=== PATIENT | female | born 1950 | race African-American/Black ===

== ENCOUNTER 2017-08-26 18:34 | Inpatient (IN) | payer BC, MEDICARE ==
[~2017-08-26] VITALS: Ht 167.6 cm; Wt 48.7 kg
--- NOTE | 2017-08-26 18:50 | NUR ---
BBRA FROM SNF FOR LOW O2 SAT LEVEL; PER REPORT PT'S OT SAT IN THE SNF WAS AT LOW 90'S. PT PLACED ON CONT CARDIAC AND POX MONITORING, SATS AT 94%, RT AT BEDSIDE SUCTIONING THE PT'S TRACH-O2 SAT IMPROVED TO 100% AFTER SUCTIONING. AFEBRILE. VSS ALL NEEDS ARE ATTENDED, PENDING ER MD BOLANOS
[2017-08-26 18:51] VITALS: BP 123/75
--- NOTE | 2017-08-26 19:16 | NUR ---
report given to mora arce for cont of care.
[2017-08-26 19:22] LABS: BASOPHILS # (AUTO) 0.1 /CMM (0.0-0.2); BASOPHILS % (AUTO) 0.5 % (0.0-2.0); EOSINOPHILS # (AUTO) 0.1 /CMM (0.0-0.7); EOSINOPHILS % (AUTO) 0.5 % (0.0-6.0); HEMATOCRIT 35 % (33-45); HEMOGLOBIN 11.2 g/dL (11.5-14.8); LYMPHOCYTES # (AUTO) 0.9 /CMM (0.8-4.8); LYMPHOCYTES % (AUTO) 7.6 % (20.0-44.0); MEAN CORPUSCULAR HEMOGLOBIN 29 PG (26.0-33.0); MEAN CORPUSCULAR HGB CONC 33 g/dl (31.0-36.0); MEAN CORPUSCULAR VOLUME 90 fL (82-100); MONOCYTES # (AUTO) 0.2 /CMM (0.1-1.30); MONOCYTES % (AUTO) 2.1 % (2.0-12.0); NEUTROPHILS % (AUTO) 89.3 % (43.0-81.0); PLATELET COUNT (AUTO) 404 /CMM (150-450); RED BLOOD CELL COUNT(AUTO) 3.83 MIL/uL (4.0-5.2); WHITE BLOOD COUNT (AUTO) 11.3 K/uL (4.3-11.0)
[2017-08-26 19:30] LABS: INR 1.07 (0.87-1.13); PROTHROMBIN TIME 11.1 SECS (9.5-12.7)
[2017-08-26 19:35] LABS: ALANINE AMINOTRANSFERASE 15 U/L (12-78); ALBUMIN 3.5 g/dL (3.4-5.0); ALKALINE PHOSPHATASE 191 U/L (46-116); ASPARTATE AMINOTRANSFERASE 31 U/L (15-37); BILIRUBIN,DIRECT 0.2 mg/dL (0.0-0.2); BILIRUBIN,TOTAL 0.5 mg/dL (0.2-1.0); CALCIUM, SERUM 9.7 mg/dL (8.5-10.1); CARBON DIOXIDE 38 mmol/L (21-32); CHLORIDE 97 mmol/L (98-107); CREATININE 0.7 mg/dL (0.6-1.3); GLUCOSE 202 mg/dL (74-106); POTASSIUM 4.2 mmol/L (3.5-5.1); SODIUM SERUM 137 mmol/L (136-145); TOTAL PROTEIN, SERUM 8.1 g/dL (6.4-8.2); UREA NITROGEN, BLOOD 21 mg/dL (7-18)
--- NOTE | 2017-08-26 19:35 | NUR ---
xr at bedside.
[2017-08-26 19:41] LABS: TROPONIN I < 0.017 ng/mL (0.00-0.056)
[2017-08-26 20:01] VITALS: BP 86/49
[2017-08-26 20:04] LABS: APPEARANCE,URINE Cloudy (CLEAR); BILIRUBIN,URINE Negative (NEGATIVE); BLOOD, URINE Moderate Ery/uL (NEGATIVE); COLOR,URINE Yellow (YELLOW); KETONES,URINE Negative (NEGATIVE); LEUKOCYTE ESTERASE ,URINE Negative (NEGATIVE); NITRITE, URINE Negative (NEGATIVE); PROTEIN,URINE >=300 mg/dl (NEGATIVE); UGLUCOSE Negative (NEGATIVE)
--- NOTE | 2017-08-26 20:45 | NUR ---
STARTED PATIENT ON 1L NORMAL SALINE BOLUS PER DR CORONADO VERBAL ORDERS FOR LOW BP OF 79/48.
[2017-08-26] MEDS ORDERED: VANCOMYCIN 1 GM VIAL ONE (20:55)
[2017-08-26] MEDS ORDERED: PIPERACILLIN /TAZOBACTAM 3.375 G VIAL IV ONE (20:55)
[2017-08-26] MEDS ORDERED: VANCOMYCIN 1 GM in IV D5W 250 ML IV ONE (21:00)
[2017-08-26] MEDS ORDERED: PIPERACILLIN /TAZOBACTAM 3.375 G in IV D5W 50 ML IV ONE (21:00)
--- NOTE | 2017-08-26 21:17 | NUR ---
RAZ DUBOSE AT BEDSIDE.
--- NOTE | 2017-08-26 21:52 | NUR ---
ICU ROOM 256
[2017-08-26] MEDS ORDERED: HYDROCODONE/APAP 5/325MG 1 EACH TABLET PO PRN (22:00)
[2017-08-26] MEDS ORDERED: MAG HYDROX/AL HYDROX/SIMETH 30 ML UDC GT PRN (22:00)
[2017-08-26] MEDS ORDERED: Z GUARD REMEDY 2 OZ OINT TP PRN (22:00)
[2017-08-26] MEDS ORDERED: ONDANSETRON HCL/PF 4 MG/2 ML VIAL IVP PRN (22:00)
[2017-08-26] MEDS ORDERED: MAGNESIUM HYDROXIDE 30 ML UDC PO PRN (22:00)
[2017-08-26 22:03] LABS: BACTERIA,URINE Moderate /HPF (None Seen); SQUAMOUS EPITHELIAL CELL,UR Moderate /HPF (None Seen)
[2017-08-26] MEDS ORDERED: FERR-58 GT (22:24)
[2017-08-26] MEDS ORDERED: SIME40DR2 GT (22:24)
[2017-08-26] MEDS ORDERED: SUCR1TAB GT (22:24)
[2017-08-26] MEDS ORDERED: ONDA4TAB5 GT (22:24)
[2017-08-26] MEDS ORDERED: FOLI1TAB16 PO (22:24)
[2017-08-26] MEDS ORDERED: POLY17PO20 GT (22:24)
[2017-08-26] MEDS ORDERED: LORA1TAB PO (22:24)
[2017-08-26] MEDS ORDERED: BISA-79 GT (22:24)
[2017-08-26] MEDS ORDERED: LEVA1.2528 NEB (22:24)
[2017-08-26] MEDS ORDERED: DOCU50LI15 GT (22:24)
[2017-08-26] MEDS ORDERED: FURO40SO2 GT (22:24)
[2017-08-26] MEDS ORDERED: HYDR-548 PO (22:24)
[2017-08-26] MEDS ORDERED: ACET-2605 GT (22:24)
[2017-08-26] MEDS ORDERED: TIOT18CA3 IH (22:24)
[2017-08-26] MEDS ORDERED: PANT40TA2 GT (22:24)
[2017-08-26] MEDS ORDERED: ATOR20TA PO (22:24)
[2017-08-26] MEDS ORDERED: FAMO40TA7 GT (22:24)
--- NOTE | 2017-08-26 23:49 | NUR ---
report given to Nafisa GARRIDO for admission and prisca.
[2017-08-27] VITALS (7 sets, daily range): BP systolic 109–160; BP diastolic 49–87
--- NOTE | 2017-08-27 00:09 | NUR ---
Transferred patient to [facility] floor via als protocol, no incident noted.
--- NOTE | 2017-08-27 00:35 | NUR ---
RN NOTES 00:05 AM ADMITTED A 67 YEARS OLD FEMALE PATIENT FROM ER TRANSFER VIA STRETCHER AOX3 ADMITTED UNDER [place]GRETTE DNP DIAGNOSED WITH RESP . FAILURE WITH HX. OF A- FIB, RESP FAILURE, VENT DEPT., PNEUMONECTOMY, GIB,. ANEMIA. HIGH CHOLESTEROL AND COPD. ALLERGIC TO CODEINE, ALBUTEROL WARFARIN,. TRAMADOL. WITH TRACH PORTEX 8 CONNECTED TO VENT SETTING AC 16 TV 380 FIO2 40% PEEP 5 TOLERATED WELL SATING 99%. PT IS VERBALLY RESPONSIVE. WITH IV SITE ON RIGHT WRIST AND LEFT HAND G 20 INTACT AND PATENT NO INFILTRATION NO SWELLING WHEN FLUSHED. TELE MONITOR PLACED REVEALS SR - ST 110. NO ACUTE RESP DISTRESS. COMPLAINING OF PAIN ON HER TRACH SITE. NO BLEEDING FROM THE SITE. BUE AND BLE ABLE TO MOVE SKIN INTACT. INSTRUCTED TO USE CALL LIGHT WHEN NEED ASSISTANCE OR HELP. VS TAKEN TEMP 97.6 RESP 16 PULSE 110 BP 116/76. KEPT PT CLEAN AND DRY BED BATH DONE. WILL CONTINUE TO MONITOR.
[2017-08-27] MEDS ORDERED: HYDROCODONE/APAP 5/325MG 1 EACH TABLET ONE (00:37)
[2017-08-27] MEDS ORDERED: LEVALBUTEROL HCL NEB PRN (02:30)
[2017-08-27] MEDS ORDERED: PIPERACILLIN /TAZOBACTAM 3.375 G VIAL IV ONE (03:04)
[2017-08-27] MEDS: PIPERACILLIN /TAZOBACTAM 3.375 G in IV D5W 50 ML IV SCH ×3 (03:27→17:06)
[2017-08-27 06:29] LABS: BASOPHILS % (AUTO) 0.4 % (0.0-2.0); EOSINOPHILS # (AUTO) 0.1 /CMM (0.0-0.7); EOSINOPHILS % (AUTO) 0.8 % (0.0-6.0); HEMATOCRIT 35 % (33-45); HEMOGLOBIN 11.1 g/dL (11.5-14.8); LYMPHOCYTES # (AUTO) 1.7 /CMM (0.8-4.8); LYMPHOCYTES % (AUTO) 20.4 % (20.0-44.0); MEAN CORPUSCULAR HEMOGLOBIN 29 PG (26.0-33.0); MEAN CORPUSCULAR HGB CONC 32 g/dl (31.0-36.0); MEAN CORPUSCULAR VOLUME 92 fL (82-100); MONOCYTES # (AUTO) 0.4 /CMM (0.1-1.30); MONOCYTES % (AUTO) 5.1 % (2.0-12.0); NEUTROPHILS # (AUTO) 6.2 /CMM (1.8-8.9); NEUTROPHILS % (AUTO) 73.3 % (43.0-81.0); PLATELET COUNT (AUTO) 306 /CMM (150-450); RDW COEFFICIENT OF VARIATION 18.3 (11.5-15.0); RED BLOOD CELL COUNT(AUTO) 3.79 MIL/uL (4.0-5.2); WHITE BLOOD COUNT (AUTO) 8.4 K/uL (4.3-11.0)
[2017-08-27 06:49] LABS: CALCIUM, SERUM 9.5 mg/dL (8.5-10.1); CREATININE 0.6 mg/dL (0.6-1.3); MAGNESIUM 1.8 mg/dL (1.8-2.4); PHOSPHORUS 3.4 mg/dL (2.5-4.9); POTASSIUM 4.5 mmol/L (3.5-5.1)
[2017-08-27 06:53] LABS: THYROID STIMULATING HORMONE 0.429 uIU/mL (0.358-3.74)
--- NOTE | 2017-08-27 07:15 | NUR ---
RN INITIAL NOTES RECEIVED PT AWAKE, A/OX3. NO RESPIRATORY DISTRESS NOTED. NO SOB NOTED. HOB ELEVATED. TRACH IN PLACE. TOLERATING VENT WELL. NO SIGNS OF PAIN NOTED. ON TELE MONITOR, SINUS RHYTHM AT 75. IV LINES IN PLACE. BLE ELEVATED. PT COMFORTABLE. WILL MONITOR.
--- NOTE | 2017-08-27 07:18 | NUR ---
RN NOTES PT ASLEEP WELL ON BED NO ACUTE RESP DISTRESS. AFEBRILE. VS STABLE. ALL DUE MEDICINE TOLERATED WELL. NO ASE FROM ATB GIVEN. TRACH AND VENT SETTING TOLERATED WELL. KEPT PT CLEAN AND DRY ALL NEEDS ATTENDED. ENDORSED CONTINUITY OF CARE TO AM NURSE.
[2017-08-27] MEDS ORDERED: FEE PK DOSING 1 MIN EA MC ONE (08:17)
[2017-08-27] MEDS: PANTOPRAZOLE 40 MG/PACK PACK GT SCH (08:21)
[2017-08-27] MEDS: FUROSEMIDE 20 MG TABLET GT SCH (08:21)
[2017-08-27] MEDS: FOLIC ACID 1 MG TABLET GT SCH (08:21)
[2017-08-27] MEDS: SUCRALFATE 1 G TABLET GT SCH ×3 (08:22→16:07)
[2017-08-27] MEDS ORDERED: LEVALBUTEROL HCL NEB 1.25 MG/0.5 ML VIAL.NEB IH PRN (08:30)
[2017-08-27] MEDS ORDERED: ALBUTEROL FS 2.5 MG/3 ML VIAL.NEB NEB PRN (08:30)
[2017-08-27 08:34] LABS: ABG OXYGEN SATURATION 98.3 % (92.0-98.5); ABG PCO2 48.9 mmHg (35.0-45.0); ABG PH 7.449 (7.350-7.450); ABG PO2 134.4 mmHg (75.0-100.0); AaDO2 94.6 mmHg; COHb 0.3 % (0.5-1.5); MetHb 0.6 % (0.0-1.5); O2Hb 97.4 % (94.0-97.0); PEEP,BG 5 cm H2O; SITE, ABG Right Radial; VENT MODE, BG AC 16 380; VT, ABG 380 mL
[2017-08-27] MEDS: POLYETHYLENE GLYCOL 3350 17 GM POWD.PACK GT SCH ×2 (08:34→16:07)
[2017-08-27] MEDS: FERROUS SULFATE (325 MG) 325 MG/TAB TABLET GT SCH (08:35)
[2017-08-27] MEDS: SIMETHICONE 80 MG TAB.CHEW GT SCH (08:35)
[2017-08-27] MEDS ORDERED: TIOTROPIUM BROMIDE 6 CAP/BOX CAP.W.DEV IH SCH (09:00)
[2017-08-27] MEDS ORDERED: DOCUSATE SODIUM LIQ 100 MG/10 ML UDC GT SCH (09:00)
[2017-08-27] MEDS ORDERED: BISACODYL (5 MG) 5 MG TABLET.DR GT SCH (09:00)
--- NOTE | 2017-08-27 09:45 | NUR ---
RN NOTES SEEN AND EXAMINED BY DR. TENA. AWARE OF CURRENT LAB VALUES AND CXR RESULT. MD REVIEWED PT'S MEDICATIONS. ORDERED LABS IN AM.
--- NOTE | 2017-08-27 10:00 | NUR ---
RN NOTES SEEN AND EXAMINED BY DR. PAGE. AWARE OF CURRENT VENT SETTINGS AND ABG RESULT. ORDERED TO DECREASE AC RATE TO 12. NOTED AND CARRIED OUT. WILL MONITOR.
[2017-08-27] MEDS: VANCOMYCIN 0.75 GM in IV D5W 250 ML IV SCH ×2 (10:54→21:41)
[2017-08-27] MEDS: HYDROCODONE/APAP 5/325MG 1 EACH TABLET GT PRN ×3 (11:56→20:16)
[2017-08-27] MEDS: IPRATROPIUM NEB FS 0.5 MG/2.5 ML AMPUL.NEB NEB SCH ×2 (13:36→20:05)
--- NOTE | 2017-08-27 15:06 | NUR ---
spoke with Sriram [phone], patient resides st the [facility] at [address], [place] [phone]. Patient is trach/vent dependent, she is alert and responsive. Requires max to total assist with adl's. Has adequate DME at the [facility]. Current plan is to return to [facility]. Addendum: 08/27/17 at 1507 by JOHNNIE GASPAR RN Amended: Links added.
--- NOTE | 2017-08-27 18:32 | NUR ---
RN CLOSING NOTES PT STABLE. NO SIGNIFICANT CHANGE NOTED. PAIN WELL MANAGED. KEPT COMFORTABLE. IV LINES IN PLACE KEPT CLEAN AND DRY. ASSISTED IN REPOSITIONING. WILL ENDORSE FOR CONTINUITY OF CARE.
--- NOTE | 2017-08-27 19:30 | NUR ---
GERMAN RN INITIAL NOTE PT RECEIVED IN BED. A/O X3 AND ABLE TO MOUTH WORDS OR WRITE ON PAPER. ON MECH VENT WITH SETTINGS WELL TOLERATED AND SATURATING WELL. TELE-SR 78. IV R WRIST/ L HAND #20 CLEAN, DRY, PATENT AND FLUSHING WELL. HOB ELEVATED AND ON ASPIRATION PRECAUTIONS. GTUBE CLAMPED WITHOUT RESIDUALS NOTED. NPO EXCEPT MEDICATIONS AT THIS TIME. CALL LIGHT WITHIN REACH. WILL CONTINUE TO MONITOR.
[2017-08-27] MEDS: LORAZEPAM 1 MG TABLET GT PRN (20:16)
[2017-08-27] MEDS: ATORVASTATIN 10 MG TABLET GT SCH (21:40)
[2017-08-27] MEDS: ACETAMINOPHEN 325 MG TABLET PO PRN (22:18)
[2017-08-28] VITALS (55 sets, daily range): BP systolic 64–179; BP diastolic 1–99
[2017-08-28] MEDS: PIPERACILLIN /TAZOBACTAM 3.375 G in IV D5W 50 ML IV SCH ×4 (00:20→17:53)
[2017-08-28] MEDS: HYDROCODONE/APAP 5/325MG 1 EACH TABLET GT PRN ×3 (00:21→08:42)
[2017-08-28] MEDS: IPRATROPIUM NEB FS 0.5 MG/2.5 ML AMPUL.NEB NEB SCH ×4 (02:12→19:42)
[2017-08-28] MEDS: LORAZEPAM 1 MG TABLET GT PRN ×2 (04:48→20:19)
[2017-08-28 06:48] LABS: BASOPHILS % (AUTO) 0.6 % (0.0-2.0); EOSINOPHILS # (AUTO) 0.1 /CMM (0.0-0.7); EOSINOPHILS % (AUTO) 1.4 % (0.0-6.0); HEMATOCRIT 36 % (33-45); HEMOGLOBIN 11.4 g/dL (11.5-14.8); LYMPHOCYTES # (AUTO) 1.6 /CMM (0.8-4.8); LYMPHOCYTES % (AUTO) 19.8 % (20.0-44.0); MEAN CORPUSCULAR HEMOGLOBIN 29 PG (26.0-33.0); MEAN CORPUSCULAR HGB CONC 32 g/dl (31.0-36.0); MEAN CORPUSCULAR VOLUME 91 fL (82-100); MONOCYTES # (AUTO) 0.4 /CMM (0.1-1.30); MONOCYTES % (AUTO) 4.3 % (2.0-12.0); NEUTROPHILS % (AUTO) 73.9 % (43.0-81.0); PLATELET COUNT (AUTO) 297 /CMM (150-450); RED BLOOD CELL COUNT(AUTO) 3.97 MIL/uL (4.0-5.2); WHITE BLOOD COUNT (AUTO) 8.2 K/uL (4.3-11.0)
--- NOTE | 2017-08-28 07:20 | NUR ---
GERMAN RN CLOSING NOTE NO ACUTE DISTRESS NOTED. VENT SETTINGS WELL TOLERATED. HOB ELEVATED. ON ASPIRATION PRECAUTIONS. NOTED WITH 100 ML RESIDUALS AT MIDNIGHT. 530 AM NOTED WITHOUT RESIDUALS AND FLUSHING WELL. ALL NEEDS ATTENDED TO PROMPTLY. CALL LIGHT WITHIN REACH. WILL ENDORSE TO NEXT SHIFT FOR CONTINUITY OF CARE.
[2017-08-28 07:30] LABS: CALCIUM, SERUM 9.7 mg/dL (8.5-10.1); CREATININE 0.8 mg/dL (0.6-1.3); MAGNESIUM 1.9 mg/dL (1.8-2.4); PHOSPHORUS 4.2 mg/dL (2.5-4.9); POTASSIUM 3.9 mmol/L (3.5-5.1)
--- NOTE | 2017-08-28 07:30 | NUR ---
RN NOTES IN BED, RESTING COMFORTABLY, ALERT, ABLE TO MAKE NEEDS KNOWN BY WRITING. RT AT BEDSIDE DID TRACHE SUCTIONING. PT HAS R WRIST HL AND LH HL. PEG CLAMPED. TURNED TO R SIDE. DIAPERED. NO C/O PAIN. BED LOW AND LOCKED. CALL LIGHT WITHIN REACHED. WILL CONTINUE TO MONITOR.
[2017-08-28] MEDS: POLYETHYLENE GLYCOL 3350 17 GM POWD.PACK GT SCH ×3 (08:42→17:00)
[2017-08-28] MEDS: FERROUS SULFATE (325 MG) 325 MG/TAB TABLET GT SCH (08:43)
[2017-08-28] MEDS: BISACODYL (5 MG) 5 MG TABLET.DR GT SCH (08:43)
[2017-08-28] MEDS: FOLIC ACID 1 MG TABLET GT SCH (08:43)
[2017-08-28] MEDS: FUROSEMIDE 20 MG TABLET GT SCH (08:43)
[2017-08-28] MEDS: DOCUSATE SODIUM LIQ 100 MG/10 ML UDC GT SCH (08:43)
[2017-08-28] MEDS: PANTOPRAZOLE 40 MG/PACK PACK GT SCH (08:43)
[2017-08-28] MEDS: SUCRALFATE 1 G TABLET GT SCH ×3 (08:44→17:51)
[2017-08-28] MEDS: SIMETHICONE 80 MG TAB.CHEW GT SCH (08:44)
[2017-08-28] MEDS ORDERED: LORAZEPAM INJ 2 MG/ML VIAL IV STA (09:35)
--- NOTE | 2017-08-28 09:35 | NUR ---
GERMAN/RN - Notes Pt noted with elevated HR up to 160's on air sampling and monitoring. Stat EKG done showing atrial flutter with HR 151. BP 179/81. Pt noted to be anxious and diaphoretic. Dr Daly called and notified regarding change of condition. Received orders for stat CXR, doppler BLE, ABG troponin x3, and Ativan 1mg IVP one time. Will carry out orders.
--- NOTE | 2017-08-28 09:55 | NUR ---
GERMAN/RN - Notes Dr Denise Raman called, regarding pt's condition. Pt HR at 155, BP 193/135, complaining of chest pain. Ativan 1mg IVP given. Received orders to obtain Cardio consult (Dr Howard), start Metoprolol 25mg BID via GT, and Morphine 2mg IVP Q4h. Verified with patient regarding codeine allergy, pt states "I have received Morphine before and not experience any reaction." Will carry out MD orders.
[2017-08-28] MEDS: VANCOMYCIN 0.75 GM in IV D5W 250 ML IV SCH ×2 (10:02→21:50)
[2017-08-28] MEDS: METOPROLOL TARTRATE 25 MG TABLET PO SCH ×2 (10:04→20:19)
[2017-08-28] MEDS: MORPHINE SULFATE INJ 2 MG/ML DISP.SYRIN IV PRN ×3 (10:05→21:05)
[2017-08-28 10:17] LABS: ABG BASE EXCESS 5.9 mmol/L; ABG OXYGEN SATURATION 91.4 % (92.0-98.5); ABG PCO2 74.8 mmHg (35.0-45.0); ABG PH 7.287 (7.350-7.450); ABG PO2 72.8 mmHg (75.0-100.0); AaDO2 53.2 mmHg; COHb 0.7 % (0.5-1.5); MetHb 0.5 % (0.0-1.5); O2Hb 90.3 % (94.0-97.0); PEEP,BG 5 cm H2O; SITE, ABG Right Radial; VT, ABG 380 mL
--- NOTE | 2017-08-28 10:25 | NUR ---
GERMAN/RN - Notes Pt seen By Dr Howard at this time, with new orders received to start Amiodarone gtt.
[2017-08-28] MEDS ORDERED: AMIODARONE 150 MG in IV D5W 100 ML IV ONE (10:30)
[2017-08-28] MEDS ORDERED: AMIODARONE 900 MG in IV D5W 500 ML IV PRN (10:30)
--- NOTE | 2017-08-28 10:30 | NUR ---
GERMAN/RN - Notes ABG results to Dr Daly by Angelina helm RN. RT Healy received orders for ventilator changes, and ABG in 2 hours.
--- NOTE | 2017-08-28 10:35 | NUR ---
GERMAN/RN - Notes Dr Walker at bedside for evaluation. Pt still noted with hypotension with BP 75/45. Per MD, discontinue 1L NS bolus d/t crackles. Hold Amiodarone gtt for now, as pt is hypotensive. Transfer to ICU to start Levophed and Amiodarone gtt. Charge nurse made aware.
[2017-08-28] MEDS: RIVAROXABAN 10 MG TABLET PO SCH (11:20)
--- NOTE | 2017-08-28 11:25 | NUR ---
ICU/RN - Notes Dr Walker notified pt is hypotensive with BP 64/43. Received orders to give 1L NS bolus. Addendum: 08/28/17 at 1151 by QIAN LONGORIA RN Intervention took place at 1023
[2017-08-28] MEDS ORDERED: IV NS 0.9% 1,000 ML IV ONE (11:30)
--- NOTE | 2017-08-28 11:45 | NUR ---
GERMAN/RN - Transfer Pt transferred to ICU via ACLS protocol. Pt to be started on Levophed for hypotension. Report given to RADHIKA Stack for continuity of care. Will notify family regarding transfer.
--- NOTE | 2017-08-28 11:47 | NUR ---
MUSEUM EXHIBIT TECHNICIAN RECEIVED PATIENT FROM THE GERMAN. PATIENT IS ALERT AND ORIENTED X 4. VENT/TRACH. NO ACUTE DISTRESS. NOW SINUS RHYTHM. BP MONITORED. AFEBRILE. VENT SETTINGS REVIEWED AND VERIFIED. TUBE FEEDING ON HOLD DUE TO ASPIRATION RISK. WILL CONTINUE TO MONITOR AND PROVIDE CARE.
[2017-08-28 12:48] LABS: ABG BASE EXCESS 9.5 mmol/L; ABG OXYGEN SATURATION 97.9 % (92.0-98.5); ABG PCO2 41.6 mmHg (35.0-45.0); ABG PO2 116.1 mmHg (75.0-100.0); AaDO2 48.9 mmHg; COHb 0.3 % (0.5-1.5); MetHb 0.4 % (0.0-1.5); O2Hb 97.2 % (94.0-97.0); PEEP,BG 5 cm H2O; SITE, ABG Right Radial; VENT MODE, BG AC 20 450 30% +5; VT, ABG 450 mL
[2017-08-28] MEDS: LACTOBACILLUS RHAMNOSUS GG 1 EACH CAP.SPRINK PO SCH (17:51)
[2017-08-28] MEDS: ATORVASTATIN 10 MG TABLET GT SCH (21:57)
[2017-08-29] VITALS (46 sets, daily range): BP systolic 99–192; BP diastolic 39–92
[2017-08-29] MEDS: PIPERACILLIN /TAZOBACTAM 3.375 G in IV D5W 50 ML IV SCH ×4 (00:27→17:11)
[2017-08-29] MEDS: IPRATROPIUM NEB FS 0.5 MG/2.5 ML AMPUL.NEB NEB SCH ×4 (02:23→20:27)
[2017-08-29 04:49] LABS: BASOPHILS % (AUTO) 0.2 % (0.0-2.0); EOSINOPHILS # (AUTO) 0.1 /CMM (0.0-0.7); EOSINOPHILS % (AUTO) 1.2 % (0.0-6.0); HEMATOCRIT 40 % (33-45); HEMOGLOBIN 12.7 g/dL (11.5-14.8); LYMPHOCYTES # (AUTO) 2.2 /CMM (0.8-4.8); LYMPHOCYTES % (AUTO) 23.9 % (20.0-44.0); MEAN CORPUSCULAR HEMOGLOBIN 29 PG (26.0-33.0); MEAN CORPUSCULAR HGB CONC 32 g/dl (31.0-36.0); MEAN CORPUSCULAR VOLUME 90 fL (82-100); MONOCYTES # (AUTO) 0.4 /CMM (0.1-1.30); MONOCYTES % (AUTO) 4.2 % (2.0-12.0); NEUTROPHILS # (AUTO) 6.6 /CMM (1.8-8.9); NEUTROPHILS % (AUTO) 70.5 % (43.0-81.0); PLATELET COUNT (AUTO) 348 /CMM (150-450); RDW COEFFICIENT OF VARIATION 18.1 (11.5-15.0); RED BLOOD CELL COUNT(AUTO) 4.45 MIL/uL (4.0-5.2); WHITE BLOOD COUNT (AUTO) 9.3 K/uL (4.3-11.0)
[2017-08-29 05:04] LABS: CALCIUM, SERUM 10.1 mg/dL (8.5-10.1); CARBON DIOXIDE 34 mmol/L (21-32); CHLORIDE 98 mmol/L (98-107); GLUCOSE 68 mg/dL (74-106); MAGNESIUM 1.7 mg/dL (1.8-2.4); PHOSPHORUS 3.5 mg/dL (2.5-4.9); POTASSIUM 3.3 mmol/L (3.5-5.1); SODIUM SERUM 139 mmol/L (136-145); UREA NITROGEN, BLOOD 14 mg/dL (7-18)
[2017-08-29 05:14] LABS: TROPONIN I < 0.017 ng/mL (0.00-0.056)
[2017-08-29] MEDS: MORPHINE SULFATE INJ 2 MG/ML DISP.SYRIN IV PRN ×3 (06:07→17:01)
--- NOTE | 2017-08-29 07:20 | NUR ---
COMPUTER SYSTEMS AUDITOR RECEIVED PATIENT FROM THE PREVIOUS SHIFT. PATIENT IS IN BED. RESTING COMFORTABLY. NO ACUTE DISTRESS NOTED. ALERT AND AWAKE. VENT SETTINGS REVIEWED AND VERIFIED. SINUS RHYTHM ON MONITOR. TURNED AND REPOSITIONED FOR COMFORT AND WOUND PREVENTION. WILL CONTINUE TO MONITOR AND PROVIDE CARE.
[2017-08-29] MEDS: POLYETHYLENE GLYCOL 3350 17 GM POWD.PACK GT SCH ×2 (09:00→16:59)
[2017-08-29] MEDS: BISACODYL (5 MG) 5 MG TABLET.DR GT SCH (09:00)
[2017-08-29] MEDS: DOCUSATE SODIUM LIQ 100 MG/10 ML UDC GT SCH (09:00)
[2017-08-29] MEDS ORDERED: POTASSIUM CHLORIDE 20 MEQ POWDER PACKET GT ONE (10:00)
[2017-08-29] MEDS: Magnesium 1GM/D5W 100ML PREMIX 100 ML IV SCH ×2 (10:23→11:36)
[2017-08-29] MEDS: FUROSEMIDE 20 MG TABLET GT SCH (10:35)
[2017-08-29] MEDS: LACTOBACILLUS RHAMNOSUS GG 1 EACH CAP.SPRINK PO SCH ×2 (10:35→17:01)
[2017-08-29] MEDS: FOLIC ACID 1 MG TABLET GT SCH (10:35)
[2017-08-29] MEDS: PANTOPRAZOLE 40 MG/PACK PACK GT SCH (10:35)
[2017-08-29] MEDS: SIMETHICONE 80 MG TAB.CHEW GT SCH (10:35)
[2017-08-29] MEDS: METOPROLOL TARTRATE 25 MG TABLET PO SCH ×3 (10:36→21:57)
[2017-08-29] MEDS: FERROUS SULFATE (325 MG) 325 MG/TAB TABLET GT SCH (10:37)
[2017-08-29] MEDS: SUCRALFATE 1 G TABLET GT SCH ×3 (10:37→17:01)
[2017-08-29] MEDS ORDERED: POTASSIUM CHLORIDE 20 MEQ POWDER PACKET NG SCH (11:30)
[2017-08-29] MEDS ORDERED: POTASSIUM CL. PREMIX PERIPHER. 50 ML IV SCH (12:00)
[2017-08-29] MEDS ORDERED: Magnesium 1GM/D5W 100ML PREMIX 100 ML IV SCH (12:00)
[2017-08-29] MEDS: VANCOMYCIN 500 MG in IV D5W 100 ML IV SCH (12:12)
[2017-08-29] MEDS: LEVOFLOXACIN 750 MG /D5W 150ML 750 MG in PREMIX 1 EA IV SCH (13:32)
[2017-08-29] MEDS: LORAZEPAM 1 MG TABLET GT PRN ×2 (14:50→21:39)
[2017-08-29] MEDS: RIVAROXABAN 10 MG TABLET PO SCH (16:41)
[2017-08-29] MEDS: NUTREN PULMONARY 1,000 ML BAG GT PRN (17:02)
--- NOTE | 2017-08-29 17:51 | NUR ---
CYLINDER DIE MACHINE OPERATOR TRANSFERRED THE PATIENT TO [facility] LEVEL OF CARE ON STABLE CONDITIONS.
--- NOTE | 2017-08-29 18:10 | NUR ---
TUBE WRAPPER NOTE RECEIVED PATENT ROM ICI ALERT , ORIENTED X2 \3, FAMILY AT BEDSIDE , VS TAKEN , WITH TRACH TO VENT SETTING ORDERED , AMBU ABG AT [facility] AT ALL TIME , TRACH CARE DONE ,SUCTION DONE VS TAKEN, BED IN LOWEST AND LOCKED POSITION, WILL CONT TO MONITOR CLOSELY
--- NOTE | 2017-08-29 19:30 | NUR ---
AIR INTELLIGENCE SPECIALIST INITIAL NOTES RECEIVED PATIENT AWAKE, A/OX3, ABLE TO MAKE NEEDS KNOWN. VENT DEPENDENT, MOUTHS WORDS. DENIES PAIN OR DISCOMFORT AT THIS TIME. AT BEDSIDE. RESPIRATIONS EVEN AND UNLABORED, WITH VENT SETTINGS AC 20, TV 400, FIO2 30%, PEEP 5, SPO2 100%. SKIN WARM AND DRY TO TOUCH. ON TELE MONITOR SINUS TACH. WITH GTF AT 30ML/HR, GT PATENT AND INTACT, MINIMAL RESIDUAL NOTED. WITH GOAL RATE 45ML/HR. HOB KEPT ELEVATED. SIDE RAILS UP AND LOCKED. BED KEPT AT LOWEST POSITION. CALL LIGHT KEPT WITHIN EASY REACH. WILL CONTINUE TO MONITOR.
[2017-08-29] MEDS: ATORVASTATIN 10 MG TABLET GT SCH (21:39)
[2017-08-30] VITALS: BP 101/75
[2017-08-30] MEDS: VANCOMYCIN 500 MG in IV D5W 100 ML IV SCH ×3 (00:25→12:02)
[2017-08-30] MEDS: PIPERACILLIN /TAZOBACTAM 3.375 G in IV D5W 50 ML IV SCH ×4 (00:25→17:00)
[2017-08-30] MEDS: IPRATROPIUM NEB FS 0.5 MG/2.5 ML AMPUL.NEB NEB SCH ×4 (01:57→19:21)
[2017-08-30 04:00] VITALS: BP 102/59
--- NOTE | 2017-08-30 07:10 | NUR ---
RN INITIAL NOTES: REC'D PT AWAKE ON BED, A/O X3, ABLE TO MAKE NEEDS KNOWN, NOT IN ANY DISTRESS, DENIES ANY PAIN/DISCOMFORT. ON MECH VENT VIA TRACH, SATURATING AT 100%. ON TELEMONITOR, SR. HAS PEG PATENT & INTACT, ON CONT TUBE FEEDING OF NUTREN X 45 CC/HR INFUSING WELL, NO RESIDUAL NOTED UPON CHECKING. HAS LFA G22, SL, FLUSHED, PATENT & INTACT W/ NO S/SX OF INFECTION/INFILTRATION NOTED. PROVIDED COMFORT & SAFETY MEASURES. BED KEPT LOW & IN LOCKED POS. CALL LIGHT PLACED W/IN REACH. WILL CONTINUE TO MONITOR AND ATTEND PT NEEDS.
[2017-08-30 07:28] LABS: BASOPHILS % (AUTO) 0.5 % (0.0-2.0); EOSINOPHILS # (AUTO) 0.1 /CMM (0.0-0.7); HEMATOCRIT 35 % (33-45); HEMOGLOBIN 11.2 g/dL (11.5-14.8); LYMPHOCYTES # (AUTO) 1.4 /CMM (0.8-4.8); LYMPHOCYTES % (AUTO) 16.9 % (20.0-44.0); MEAN CORPUSCULAR HEMOGLOBIN 29 PG (26.0-33.0); MEAN CORPUSCULAR HGB CONC 32 g/dl (31.0-36.0); MEAN CORPUSCULAR VOLUME 90 fL (82-100); MONOCYTES # (AUTO) 0.6 /CMM (0.1-1.30); MONOCYTES % (AUTO) 6.9 % (2.0-12.0); NEUTROPHILS # (AUTO) 6.4 /CMM (1.8-8.9); NEUTROPHILS % (AUTO) 74.7 % (43.0-81.0); PLATELET COUNT (AUTO) 308 /CMM (150-450); WHITE BLOOD COUNT (AUTO) 8.5 K/uL (4.3-11.0)
[2017-08-30 07:32] LABS: CALCIUM, SERUM 9.5 mg/dL (8.5-10.1); CREATININE 1.1 mg/dL (0.6-1.3); MAGNESIUM 1.9 mg/dL (1.8-2.4); PHOSPHORUS 3.9 mg/dL (2.5-4.9); POTASSIUM 3.4 mmol/L (3.5-5.1)
[2017-08-30 08:00] VITALS: BP 95/55
[2017-08-30] MEDS: FOLIC ACID 1 MG TABLET GT SCH (08:22)
[2017-08-30] MEDS: PANTOPRAZOLE 40 MG/PACK PACK GT SCH (08:22)
[2017-08-30] MEDS: FUROSEMIDE 20 MG TABLET GT SCH (08:22)
[2017-08-30] MEDS: SUCRALFATE 1 G TABLET GT SCH ×3 (08:22→16:58)
[2017-08-30] MEDS: DOCUSATE SODIUM LIQ 100 MG/10 ML UDC GT SCH (08:22)
[2017-08-30] MEDS: LACTOBACILLUS RHAMNOSUS GG 1 EACH CAP.SPRINK PO SCH ×2 (08:23→16:58)
[2017-08-30] MEDS: SIMETHICONE 80 MG TAB.CHEW GT SCH (08:23)
[2017-08-30] MEDS: POLYETHYLENE GLYCOL 3350 17 GM POWD.PACK GT SCH ×2 (08:23→16:43)
[2017-08-30] MEDS: BISACODYL (5 MG) 5 MG TABLET.DR GT SCH (08:23)
[2017-08-30] MEDS: FERROUS SULFATE (325 MG) 325 MG/TAB TABLET GT SCH (08:23)
[2017-08-30] MEDS: METOPROLOL TARTRATE 25 MG TABLET PO SCH ×2 (08:24→21:56)
[2017-08-30] MEDS ORDERED: POTASSIUM CHLORIDE 20 MEQ POWDER PACKET GT ONE ×2 (10:00→12:00)
[2017-08-30] MEDS ORDERED: POTASSIUM CHLORIDE 20 MEQ TAB.PRT.SR PO ONE (11:00)
[2017-08-30 12:00] VITALS: BP 100/62
[2017-08-30] MEDS: LORAZEPAM 1 MG TABLET GT PRN (12:56)
[2017-08-30] MEDS: LEVOFLOXACIN 750 MG /D5W 150ML 750 MG in PREMIX 1 EA IV SCH (13:09)
[2017-08-30] MEDS: MORPHINE SULFATE INJ 2 MG/ML DISP.SYRIN IV PRN (15:04)
[2017-08-30 16:00] VITALS: BP 92/60
[2017-08-30] MEDS: RIVAROXABAN 10 MG TABLET PO SCH (16:58)
[2017-08-30] MEDS: NUTREN PULMONARY 1,000 ML BAG GT PRN (18:02)
--- NOTE | 2017-08-30 18:21 | NUR ---
RN CLOSING NOTES: NO ACUTE CHANGES NOTED W/IN SHIFT. PT TOLERATED MECH VENT SETTINGS VIA TRACH, SATURATING AT 100%. ON TELEMONITOR, NOW ST. PEG KEPT PATENT & INTACT, ON CONT TUBE FEEDING OF NUTREN X 45 CC/HR TOLERATED WELL, NO RESIDUAL NOTED W/IN SHIFT. LFA G22, SL, KEPT PATENT & INTACT W/ NO S/SX OF INFECTION/INFILTRATION NOTED. KEPT WELL RESTED. NEEDS ATTENDED. BED KEPT LOW & IN LOCKED POS. CALL LIGHT PLACED W/IN REACH. WILL ENDORSE TO PM RN FOR FLOYD.
--- NOTE | 2017-08-30 19:30 | NUR ---
PREMIUM NOTE INTEREST CALCULATOR CLERK INITIAL NOTES RECEIVED PATIENT AWAKE A/OX3 ABLE TO MAKE NEEDS KNOWN. VENT DEPENDENT WITH VENT SETTINGS AC 20, TV 400, FIO2 30%, PEEP 5, SPO2 100%. ON TELE MONITOR ATRIAL TACH 110. WITH C/O 5/10 PAIN. SKIN WARM AND DRY TO TOUCH . WITH GT PATENT AND INTACT. NO RESIDUAL NOTED. HOB KEPT ELEVATED. SIDE RAILS UP AND LOCKED. BED KEPT AT LOWEST POSITION. CALL LIGHT KEPT WITHIN EASY REACH. WILL CONTINUE TO MONITOR.
[2017-08-30 20:00] VITALS: BP 93/59
[2017-08-30] MEDS: ACETAMINOPHEN 325 MG TABLET PO PRN (20:19)
[2017-08-30] MEDS: ATORVASTATIN 10 MG TABLET GT SCH (21:56)
[2017-08-31] VITALS: BP 98/64
[2017-08-31] MEDS: VANCOMYCIN 500 MG in IV D5W 100 ML IV SCH ×2
--- NOTE | 2017-08-31 00:37 | NUR ---
vancomycin non-admin trough 22.
[2017-08-31] MEDS: PIPERACILLIN /TAZOBACTAM 3.375 G in IV D5W 50 ML IV SCH ×3 (00:44→12:08)
[2017-08-31] MEDS: IPRATROPIUM NEB FS 0.5 MG/2.5 ML AMPUL.NEB NEB SCH ×4 (01:52→20:23)
[2017-08-31 04:00] VITALS: BP_SYST 108; BP_SYST 95; BP_DIAS 62; BP_DIAS 64
[2017-08-31] MEDS: ACETAMINOPHEN 325 MG TABLET PO PRN (06:11)
--- NOTE | 2017-08-31 07:21 | NUR ---
ROD BUSTER CLOSING NOTES NO SIGNIFICANT CHANGES OVERNIGHT. NO RESPIRATORY DISTRESS NOTED. PAIN MONITORED AND MANAGED NEEDED. TOLERATING CURRENT VENT SETTINGS. TOLERATING GTF, NO RESIDUAL NOTED. KEPT CLEAN AND DRY. TURNED AND REPOSITIONED Q2 AND PRN. SIDE RAILS UP AND LOCKED. BED KEPT AT LOWEST POSITION. CALL LIGHT KEPT WITHIN EASY REACH. WILL ENDORSE CONTINUITY OF CARE TO AM NURSE.
[2017-08-31 08:00] VITALS: BP 87/61
[2017-08-31 08:01] LABS: BASOPHILS % (AUTO) 0.3 % (0.0-2.0); EOSINOPHILS # (AUTO) 0.1 /CMM (0.0-0.7); HEMATOCRIT 36 % (33-45); HEMOGLOBIN 11.2 g/dL (11.5-14.8); LYMPHOCYTES # (AUTO) 2.1 /CMM (0.8-4.8); LYMPHOCYTES % (AUTO) 22.5 % (20.0-44.0); MEAN CORPUSCULAR HEMOGLOBIN 29 PG (26.0-33.0); MEAN CORPUSCULAR HGB CONC 31 g/dl (31.0-36.0); MEAN CORPUSCULAR VOLUME 91 fL (82-100); MONOCYTES # (AUTO) 0.7 /CMM (0.1-1.30); MONOCYTES % (AUTO) 7.4 % (2.0-12.0); NEUTROPHILS # (AUTO) 6.3 /CMM (1.8-8.9); NEUTROPHILS % (AUTO) 68.8 % (43.0-81.0); PLATELET COUNT (AUTO) 304 /CMM (150-450); RDW COEFFICIENT OF VARIATION 17.7 (11.5-15.0); RED BLOOD CELL COUNT(AUTO) 3.94 MIL/uL (4.0-5.2); WHITE BLOOD COUNT (AUTO) 9.2 K/uL (4.3-11.0)
[2017-08-31 08:17] LABS: CALCIUM, SERUM 9.1 mg/dL (8.5-10.1); CREATININE 1.1 mg/dL (0.6-1.3); POTASSIUM 3.7 mmol/L (3.5-5.1)
[2017-08-31] MEDS: LACTOBACILLUS RHAMNOSUS GG 1 EACH CAP.SPRINK PO SCH ×2 (08:55→16:34)
[2017-08-31] MEDS: POLYETHYLENE GLYCOL 3350 17 GM POWD.PACK GT SCH ×2 (08:55→16:34)
[2017-08-31] MEDS: DOCUSATE SODIUM LIQ 100 MG/10 ML UDC GT SCH (08:55)
[2017-08-31] MEDS: SIMETHICONE 80 MG TAB.CHEW GT SCH (08:55)
[2017-08-31] MEDS: PANTOPRAZOLE 40 MG/PACK PACK GT SCH (08:55)
[2017-08-31] MEDS: FOLIC ACID 1 MG TABLET GT SCH (08:55)
[2017-08-31] MEDS: FERROUS SULFATE (325 MG) 325 MG/TAB TABLET GT SCH (08:55)
[2017-08-31] MEDS: BISACODYL (5 MG) 5 MG TABLET.DR GT SCH (08:56)
[2017-08-31] MEDS: FUROSEMIDE 20 MG TABLET GT SCH (08:56)
[2017-08-31] MEDS: SUCRALFATE 1 G TABLET GT SCH ×3 (08:56→16:34)
[2017-08-31] MEDS: METOPROLOL TARTRATE 25 MG TABLET PO SCH (09:00)
[2017-08-31 09:45] LABS: MAGNESIUM 1.7 mg/dL (1.8-2.4); PHOSPHORUS 3.2 mg/dL (2.5-4.9)
[2017-08-31] MEDS ORDERED: METO25TA20 PO (10:00)
[2017-08-31] MEDS ORDERED: [UNRECOGNIZED DRUG - CODE] GT (10:00)
[2017-08-31] MEDS ORDERED: LEVO750T21 PO (10:00)
[2017-08-31] MEDS ORDERED: RIVA10TA PO (10:00)
[2017-08-31] MEDS: Magnesium 1GM/D5W 100ML PREMIX 100 ML IV SCH ×2 (11:57→12:52)
[2017-08-31 12:00] VITALS: BP 97/56
[2017-08-31] MEDS: LEVOFLOXACIN 750 MG /D5W 150ML 750 MG in PREMIX 1 EA IV SCH (12:52)
[2017-08-31 16:00] VITALS: BP 108/65
[2017-08-31] MEDS: HYDROCODONE/APAP 5/325MG 1 EACH TABLET GT PRN (16:35)
[2017-08-31] MEDS: RIVAROXABAN 10 MG TABLET PO SCH (16:48)
--- NOTE | 2017-08-31 18:09 | NUR ---
RN NOTES CALLED [facility], REPORT GIVEN TO KARLIE GARRIDO. ESTIMATED ESCROW AGENT TIME IS 1929
--- NOTE | 2017-08-31 18:10 | NUR ---
RN NOTES PATIENT RESTING IN BED, NO ACUTE CHANGE IN CONDITION. NO RESPIRATORY DISTRESS NOTED. TOLERATING CURRENT MECH VENT SETTINGS. PAIN MONITORED AND MANAGED NEEDED. HYDROCODONE PRN GIVEN WITH RELIEF. TOLERATING GTF, NO RESIDUAL NOTED. KEPT CLEAN AND DRY. TURNED AND REPOSITIONED Q2H AND PRN. SIDE RAILS UP AND LOCKED, HOB KEPT ELEVATED, BED KEPT AT LOWEST POSITION. CALL LIGHT KEPT WITHIN EASY REACH. FAMILY AT BEDSIDE
[2017-08-31] MEDS: LORAZEPAM 1 MG TABLET GT PRN (19:29)
[2017-08-31 20:00] VITALS: BP 105/63
--- NOTE | 2017-08-31 21:45 | NUR ---
RN CLOSING NOTE PT REMAINS IN NO ACUTE DISTRESS IN BED. PT DID NOT HAVE ANY SIGNIFICANT CHANGE IN CONDITION DURING SHIFT. PT TOLERATED VENT SETTING WELL. EMS AND RT AT BEDSIDE. PT TOLERATED TRANSFER TO [facility]. IV AND TELE REMOVED. PT LEFT HOSPITAL IN STABLE CONDITION WITH EMS TO [facility].
== END 2017-08-31 22:45 | DRG 870 ==
LOC: ER 18:39 → ICU 22:02 → TELE-TD 23:53 → ICU 08-28 11:40 → TELE1 08-29 17:35
PROVIDERS: ADMIT Nurse Practitioner Acute Care; ATTEND Nurse Practitioner Acute Care
PROC: 5A1955Z Respiratory Ventilation, Greater than 96 Consecutive Hours (ICD-10-PCS; principal; 2017-08-26)
DX: A41.9 Sepsis, unspecified organism (principal); N17.0 Acute kidney failure with tubular necrosis; J96.21 Acute and chronic respiratory failure with hypoxia; J18.9 Pneumonia, unspecified organism; Z99.11 Dependence on respirator [ventilator] status; I50.33 Acute on chronic diastolic (congestive) heart failure; J44.1 Chronic obstructive pulmonary disease with (acute) exacerbation; Z93.0 Tracheostomy status; D68.59 Other primary thrombophilia; J96.22 Acute and chronic respiratory failure with hypercapnia; I48.92 Unspecified atrial flutter; N39.0 Urinary tract infection, site not specified; I48.91 Unspecified atrial fibrillation; Z93.1 Gastrostomy status; D64.9 Anemia, unspecified; E87.6 Hypokalemia; I25.10 Atherosclerotic heart disease of native coronary artery without angina pectoris; Z90.2 Acquired absence of lung [part of]; D63.8 Anemia in other chronic diseases classified elsewhere; B96.89 Other specified bacterial agents as the cause of diseases classified elsewhere; M94.0 Chondrocostal junction syndrome [Tietze]; R13.10 Dysphagia, unspecified; B96.5 Pseudomonas (aeruginosa) (mallei) (pseudomallei) as the cause of diseases classified elsewhere
CPT/HCPCS: 31720; 36415; 36600; 71010-TC; 71250-TC; 80048-TC; 80061-TC; 80076-TC; 80202-TC; 81000-TC; 82803-TC; 83605-TC; 83735-TC; 84100-TC; 84443-TC; 84484-TC; 85025-TC; 85730-TC; 87040-TC; 87070-TC; 87081-TC; 87086-TC; 87186-TC; 93307-TC; 93970-TC; 94002-TC; 94003-TC; 94762-TC; 99082-TC; A4216; A4606; A6253; A6402; J0282; J1956; J2060; J2270; J2405; J2543; J3370; J3475; J7030; J7060; Z7610

== ENCOUNTER 2017-10-02 00:09 | Inpatient (IN) | payer OTHER, MEDICAID ==
[~2017-10-02] VITALS: Ht 154.9 cm; Wt 51.7 kg
[2017-10-02] VITALS (7 sets, daily range): BP systolic 99–117; BP diastolic 59–69
[~2017-10-02 00:09] MED LIST: ACET-2605 GT; ATOR20TA GT; BISA-79 GT; DOCU50LI15 GT; FAMO40TA7 GT; FERR325T23 GT; FOLI1TAB16 GT; FURO40SO2 GT; LEVA1.2528 NEB; LEVO750T21 PO; LORA1TAB GT; METO25TA20 PO; ONDA4TAB5 GT; PANT40TA2 GT; POLY17PO20 GT; RIVA10TA PO; SIME40DR2 GT; TIOT18CA3 IH; [UNRECOGNIZED DRUG - CODE] GT
--- NOTE | 2017-10-02 00:21 | NUR ---
to bed 2 bib paramedics c/o sob, rhonchi heard bilaterally on auscultation. pt aaox4 no acute distress noted, resp even and unlabored. place pt no cardiac monitoring, continuous pox. rt at bedside to place pt on vent.
--- NOTE | 2017-10-02 00:26 | NUR ---
RT PLACE PT ON VENT AC-14, TV-400, FIO2-28%, PEEP-5. WILL CONTINUE TO MONITOR PT CLOSELY.
[2017-10-02 00:53] LABS: BASOPHILS % (AUTO) 0.3 % (0.0-2.0); EOSINOPHILS # (AUTO) 0.1 /CMM (0.0-0.7); EOSINOPHILS % (AUTO) 0.5 % (0.0-6.0); HEMATOCRIT 39 % (33-45); HEMOGLOBIN 12.4 g/dL (11.5-14.8); LYMPHOCYTES # (AUTO) 2.5 /CMM (0.8-4.8); LYMPHOCYTES % (AUTO) 23.7 % (20.0-44.0); MEAN CORPUSCULAR HEMOGLOBIN 28 PG (26.0-33.0); MEAN CORPUSCULAR HGB CONC 32 g/dl (31.0-36.0); MEAN CORPUSCULAR VOLUME 88 fL (82-100); MONOCYTES # (AUTO) 0.4 /CMM (0.1-1.30); MONOCYTES % (AUTO) 3.3 % (2.0-12.0); NEUTROPHILS # (AUTO) 7.7 /CMM (1.8-8.9); NEUTROPHILS % (AUTO) 72.2 % (43.0-81.0); PLATELET COUNT (AUTO) 298 /CMM (150-450); RDW COEFFICIENT OF VARIATION 16.3 (11.5-15.0); RED BLOOD CELL COUNT(AUTO) 4.44 MIL/uL (4.0-5.2); WHITE BLOOD COUNT (AUTO) 10.7 K/uL (4.3-11.0)
[2017-10-02] MEDS ORDERED: IV NS 0.9% 1,000 ML BAG IV ONE (01:00)
[2017-10-02 01:04] LABS: CALCIUM, SERUM 9.8 mg/dL (8.5-10.1); CARBON DIOXIDE 33 mmol/L (21-32); CHLORIDE 97 mmol/L (98-107); CREATININE 0.9 mg/dL (0.6-1.3); GLUCOSE 169 mg/dL (74-106); POTASSIUM 5.1 mmol/L (3.5-5.1); SODIUM SERUM 131 mmol/L (136-145); UREA NITROGEN, BLOOD 29 mg/dL (7-18)
[2017-10-02 01:08] LABS: INR 1.1 (0.87-1.13)
[2017-10-02 01:12] LABS: TROPONIN I < 0.017 ng/mL (0.00-0.056)
[2017-10-02 01:19] LABS: ALANINE AMINOTRANSFERASE 46 U/L (12-78); ALBUMIN 3.2 g/dL (3.4-5.0); ALKALINE PHOSPHATASE 254 U/L (46-116); ASPARTATE AMINOTRANSFERASE 59 U/L (15-37); B-TYPE NATRIURETIC PEPTIDE 4370 PG/ML (0-125); BILIRUBIN,DIRECT 0.1 mg/dL (0.0-0.2); BILIRUBIN,TOTAL 0.6 mg/dL (0.2-1.0); TOTAL PROTEIN, SERUM 8.6 g/dL (6.4-8.2)
[2017-10-02 01:39] LABS: APPEARANCE,URINE SL CLOUDY (CLEAR); BILIRUBIN,URINE NEGATIVE (NEGATIVE); BLOOD, URINE NEGATIVE Ery/uL (NEGATIVE); COLOR,URINE YELLOW (YELLOW); KETONES,URINE NEGATIVE (NEGATIVE); LEUKOCYTE ESTERASE ,URINE NEGATIVE (NEGATIVE); NITRITE, URINE NEGATIVE (NEGATIVE); PROTEIN,URINE 2+ mg/dl (NEGATIVE); UGLUCOSE NEGATIVE (NEGATIVE); UROBILINOGEN,URINE 0.2 EU/dL (0.2)
[2017-10-02 01:43] LABS: BACTERIA,URINE Few /HPF (None Seen); HYALINE CASTS, URINE Few /LPF (None Seen); RBC,URINE 0-2 /HPF (0-2); SQUAMOUS EPITHELIAL CELL,UR Few /HPF (None Seen); URINE AMORPHOUS URATE Moderate /HPF (None Seen); WBC,URINE 0-2 /HPF (0-3)
--- NOTE | 2017-10-02 01:48 | NUR ---
CALLED [facility] FOR A PANEL CALL
--- NOTE | 2017-10-02 02:20 | NUR ---
ER TALKING TO DR. KWON REGARDING PT ADMISSION. WILL CALL FOR REPORT.
--- NOTE | 2017-10-02 02:29 | NUR ---
REPORT CALLED TO WORKING SUPERVISORRADHIKA PEREZ. WILL TRANSPORT PT VIA ACLS PROTOCOL.
[2017-10-02] MEDS ORDERED: MAG HYDROX/AL HYDROX/SIMETH 30 ML UDC PO PRN (03:00)
[2017-10-02] MEDS ORDERED: ENOXAPARIN SODIUM 30 MG/0.3 ML DISP.SYRIN SQ SCH (03:00)
[2017-10-02] MEDS ORDERED: ONDANSETRON HCL/PF 4 MG/2 ML VIAL IVP PRN (03:00)
[2017-10-02] MEDS ORDERED: MAGNESIUM HYDROXIDE 30 ML UDC PO PRN (03:00)
--- NOTE | 2017-10-02 03:00 | NUR ---
GERMAN RN INITIAL NOTE A/O X4 AND ABLE TO MOUTH WORDS OR WRITE DOWN NEEDS. VENT DEPENDENT AND TOLERATING WELL. NO SOB NOTED. NO C/O PAIN OR DISCOMFORT. HOB ELEVATED. ON ASPIRATION PRECAUTIONS. IV LFA #18 CLEAN AND DRY. ALL ORDERS CARRIED OUT. CALL LIGHT WITHIN REACH. WILL CONTINUE TO MONITOR.
[2017-10-02] MEDS ORDERED: LEVOFLOXACIN 500 MG /D5W 100ML 100 ML IV ONE (03:08)
[2017-10-02] MEDS ORDERED: ENOXAPARIN SODIUM 30 MG/0.3 ML DISP.SYRIN ONE (03:09)
[2017-10-02] MEDS: IPRATROPIUM NEB FS 0.5 MG/2.5 ML AMPUL.NEB NEB SCH ×6 (03:37→23:44)
[2017-10-02] MEDS: IV NS 0.9% 1,000 ML IV PRN ×2 (03:43→16:21)
[2017-10-02] MEDS: LEVOFLOXACIN 500 MG /D5W 100ML 500 MG in PREMIX 1 EA IV SCH (03:43)
--- NOTE | 2017-10-02 05:36 | NUR ---
Received pt on vent support, pt stable on current settings, no SOB or respiratory distress noted.Ventilator is plugged into red outlet, alarms are audible, ambu bag at bedside. Will continue monitoring per MDS orders. Addendum: 10/02/17 at 0536 by GIANA COMBS RT Amended: Links added.
--- NOTE | 2017-10-02 07:10 | NUR ---
RN INITIAL NOTES: REC'D PT AWAKE ON BED, NOT IN ANY DISTRESS, A/O X 3, ABLE TO MAKE NEEDS KNOWN. ON MV VIA TRACH, SATING AT 100%. ON TELEMONITOR, SR/ST. HAS PEG PATENT & INTACT, CLAMPED AT THIS TIME, FEEDING TO START. HAS LFA G18 W/ NS X 75 CC/HR INFUSING WELL. PROVIDED COMFORT & SAFETY MEASURES. BED KEPT LOW & IN LOCKED POS. CALL LIGHT PLACED W/IN REACH. WILL CONTINUE TO MONITOR AND ATTEND PT NEEDS.
--- NOTE | 2017-10-02 08:11 | NUR ---
GERMAN RN CLOSING NOTE PT REMAINED STABLE DURING SHIFT. NO C/O PAIN. NO S/SX OF RESPIRATORY DISTRESS NOTED. HOB ELEVATED. IV FLUIDS STARTED AND MEDS GIVEN. KEPT CLEAN AND DRY. SUCTIONED NEEDED. CALL LIGHT WITHIN REACH. WILL ENDORSE TO NEXT SHIFT FOR CONTINUITY OF CARE.
[2017-10-02] MEDS ORDERED: TIOTROPIUM BROMIDE 6 CAP/BOX CAP.W.DEV IH SCH (09:00)
[2017-10-02] MEDS ORDERED: FUROSEMIDE 20 MG TABLET GT SCH (09:00)
[2017-10-02] MEDS: METOPROLOL TARTRATE 25 MG TABLET PO SCH ×2 (09:00→21:00)
[2017-10-02] MEDS: PANTOPRAZOLE 40 MG/PACK PACK GT SCH (09:12)
[2017-10-02] MEDS: DOCUSATE SODIUM LIQ 100 MG/10 ML UDC GT SCH (09:12)
[2017-10-02] MEDS: FOLIC ACID 1 MG TABLET PO SCH (09:12)
[2017-10-02] MEDS: BISACODYL (5 MG) 5 MG TABLET.DR GT SCH (09:12)
[2017-10-02] MEDS: FERROUS SULFATE (325 MG) 325 MG/TAB TABLET GT SCH (09:12)
[2017-10-02] MEDS: SIMETHICONE SUSP 40 MG/0.6 ML BOTTLE GT SCH (09:13)
[2017-10-02] MEDS: Z GUARD REMEDY 2 OZ OINT TP PRN (09:14)
[2017-10-02] MEDS: NUTREN PULMONARY 1,000 ML BAG GT PRN (09:41)
[2017-10-02] MEDS: LORAZEPAM 1 MG TABLET PO PRN (10:04)
[2017-10-02] MEDS ORDERED: LEVALBUTEROL HCL NEB 1.25 MG/0.5 ML VIAL.NEB IH PRN (10:11)
[2017-10-02] MEDS: methylPREDNISolone SOD SUCC 125 MG/2ML VIAL IV SCH ×3 (12:12→23:25)
[2017-10-02] MEDS: ACETAMINOPHEN 325 MG TABLET PO PRN (16:17)
[2017-10-02] MEDS: RIVAROXABAN 10 MG TABLET PO SCH (16:17)
--- NOTE | 2017-10-02 19:00 | NUR ---
RN CLOSING NOTES: NO ACUTE CHANGES NOTED W/ SHIFT. PT TOLERATED MV VIA TRACH. ON TELEMONITOR, STILL SR/ST. PEG KEPT PATENT & INTACT, STARTED ON NUTREN X 45 CC/HR TOLERATED WELL, NO RESIDUAL NOTED W/IN SHIFT. LFA G18 NO S/SX OF INFECTION/ INFILTRATION NOTED W/ NS X 75 CC/HR. KEPT WELL RESTED. NEEDS ATTENDED. BED KEPT LOW & IN LOCKED POS. CALL LIGHT PLACED W/IN REACH. ENDORSED TO PM RN FOR FLOYD.
--- NOTE | 2017-10-02 19:20 | NUR ---
GERMAN RN OPENING NOTES RECEIVED REPORT FROM KENNY GARRIDO. PATIENT A/A/O X3, ABLE TO MOUTH WORDS & MAKE NEEDS KNOWN. BREATHING EVEN & UNLABORED W/ TRACH INTACT & TOLERATING VENT SETTINGS AC 16, TV 400, FIO2 28%, PEEP 5. NO RESPIRATORY DISTRESS NOTED. ON TELE SINUS TACH, HR 102. DENIES NAY CHEST PAIN OR DISCOMFORT. LEFT FOREARM IV #18 INTACT W/ DRESSING CDI & IVF NS @ 75 ML/HR. G-TUBE INTACT & FLUSHING WELL. GTF NUTREN @ 45 ML/HR, NO RESIDUAL NOTED @ THIS TIME. PATIENT RESTING COMFORTABLY IN BED. SAFETY MEASURES IN PLACE W/ SIDE RAILS UP, BED LOCKED & IN LOWEST POSITION & CALL LIGHT WITHIN REACH. FAMILY @ BEDSIDE. WILL CONTINUE TO MONITOR. Addendum: 10/02/17 at 1953 by JOHANA LIGHT RN RECEIVED REPORT FROM JANEL Odonnell
[2017-10-02] MEDS: ATORVASTATIN 10 MG TABLET PO SCH (21:56)
[2017-10-03] VITALS (7 sets, daily range): BP systolic 120–132; BP diastolic 66–99
[2017-10-03] MEDS: LEVOFLOXACIN 500 MG /D5W 100ML 500 MG in PREMIX 1 EA IV SCH (02:44)
[2017-10-03] MEDS: LORAZEPAM 1 MG TABLET PO PRN ×2 (02:44→15:33)
--- NOTE | 2017-10-03 03:00 | NUR ---
GERMAN RN NOTES PATIENT NOTED W/ INCREASED HR 200S AND TELE READING V-TACH W/ C/O NON-RADIATING CHEST PAIN. BP 146/92. CALLED & SPOKE TO DR KWON & NEW ORDERS RECEIVED.
--- NOTE | 2017-10-03 03:05 | NUR ---
GERMAN RN NOTES PATIENT ASKED TO CALL REGARDING MORPHINE. CALLED PATIENT'S TO CONFIRM IF OKAY TO GIVE MORPHINE TO PATIENT D/T ALLERGY TO CODEINE. PER PATIENT'S , M[place]Y, [place] TO GIVE MORPHINE.
[2017-10-03] MEDS ORDERED: NITROGLYCERIN 0.4 MG/TAB BOTTLE ONE (03:15)
[2017-10-03] MEDS: NITROGLYCERIN 0.4 MG/TAB BOTTLE SL PRN ×3 (03:21→03:35)
--- NOTE | 2017-10-03 03:21 | NUR ---
GERMAN RN NOTES 1ST DOSE O.4 MG NITRO ADMINISTERED SUBLINGUALLY. BP 149/92.
[2017-10-03] MEDS ORDERED: MORPHINE SULFATE INJ 4 MG/ML DISP.SYRIN ONE (03:24)
--- NOTE | 2017-10-03 03:27 | NUR ---
GERMAN RN NOTES PATIENT STILL C/O CHEST PAIN W/ HR 200S. 2ND DOSE NITRO ADMINISTERED SUBLINGUALLY. BP 132/99
[2017-10-03] MEDS ORDERED: MORPHINE SULFATE INJ 2 MG/ML DISP.SYRIN IV PRN (03:30)
--- NOTE | 2017-10-03 03:35 | NUR ---
GERMAN RN NOTES PATIENT STILL C/O NON-RADIATING CHEST PAIN W/ HR IN 200S. BP 122/80. MORPHINE 2MG IV ALSO ADMINISTERED. WILL CONTINUE TO MONITOR.
[2017-10-03 03:41] LABS: BASOPHILS % (AUTO) 0.1 % (0.0-2.0); HEMATOCRIT 39 % (33-45); HEMOGLOBIN 12.5 g/dL (11.5-14.8); LYMPHOCYTES # (AUTO) 2.4 /CMM (0.8-4.8); LYMPHOCYTES % (AUTO) 21.8 % (20.0-44.0); MEAN CORPUSCULAR HEMOGLOBIN 28 PG (26.0-33.0); MEAN CORPUSCULAR HGB CONC 32 g/dl (31.0-36.0); MEAN CORPUSCULAR VOLUME 88 fL (82-100); MONOCYTES # (AUTO) 0.1 /CMM (0.1-1.30); MONOCYTES % (AUTO) 0.6 % (2.0-12.0); NEUTROPHILS # (AUTO) 8.4 /CMM (1.8-8.9); NEUTROPHILS % (AUTO) 77.5 % (43.0-81.0); PLATELET COUNT (AUTO) 342 /CMM (150-450); RDW COEFFICIENT OF VARIATION 16.3 (11.5-15.0); RED BLOOD CELL COUNT(AUTO) 4.46 MIL/uL (4.0-5.2); WHITE BLOOD COUNT (AUTO) 10.9 K/uL (4.3-11.0)
[2017-10-03] MEDS: IPRATROPIUM NEB FS 0.5 MG/2.5 ML AMPUL.NEB NEB SCH ×6 (03:44→23:15)
[2017-10-03] MEDS ORDERED: ASPIRIN 81 MG TAB.CHEW ONE (03:44)
[2017-10-03 03:55] LABS: CALCIUM, SERUM 9.3 mg/dL (8.5-10.1); MAGNESIUM 1.9 mg/dL (1.8-2.4); PHOSPHORUS 4.1 mg/dL (2.5-4.9); POTASSIUM 4.8 mmol/L (3.5-5.1)
--- NOTE | 2017-10-03 03:55 | NUR ---
GERMAN RN NOTES ASPIRIN 81 MG ADMINISTERED VIA G-TUBE. PATIENT CONTINUES TO C/O NON-RADIATING CHEST PAIN W/ HR STILL IN 200S. SPOKE TO DR KWON & NEW ORDER FOR ADENOSINE PUSH RECEIVED.
[2017-10-03] MEDS ORDERED: ASPIRIN 81 MG TAB.CHEW PO SCH (04:00)
[2017-10-03] MEDS ORDERED: ADENOSINE 6 MG/2 ML VIAL IVP ONE (04:00)
--- NOTE | 2017-10-03 04:00 | NUR ---
GERMAN RN NOTES RE-ASSESSED PATIENT BEFORE ADMINISTERING ADENOSINE. PER PATIENT, CHEST PAIN DECREASED. HR ALSO DECREASED TO 140S. ADENOSINE NON-ADMINISTERED. CHARGE NURSE AWARE. WILL MONITOR PATIENT CLOSELY.
[2017-10-03] MEDS ORDERED: LORAZEPAM INJ 2 MG/ML VIAL IV PRN (04:30)
--- NOTE | 2017-10-03 04:30 | NUR ---
GERMAN RN NOTES PATIENT NO LONGER IN DISTRESS & DENIES ANY MORE CHEST PAIN. HR 104 & BP 102/66. TROPONIN 0.017. WILL CONTINUE TO MONITOR PATIENT CLOSELY.
[2017-10-03] MEDS: methylPREDNISolone SOD SUCC 125 MG/2ML VIAL IV SCH ×4 (05:53→23:31)
[2017-10-03] MEDS: NUTREN PULMONARY 1,000 ML BAG GT PRN (06:47)
[2017-10-03] MEDS: ACETAMINOPHEN 325 MG TABLET PO PRN ×2 (06:53→11:43)
--- NOTE | 2017-10-03 07:52 | NUR ---
GERMAN RN NOTE PATIENT IN BED ,RESTING COMFORTABLY WITH TRACH TO VENT SETTING ORDERED , ON TELE MONITOR SR 77 WITH PAC , WITH G TUBE FEEDING ORDERED ,KEEP HOB ELEVATED AT ALL YVETTE. LT FA HL INTACT , ON IVF ORDERED, BED IN LOWEST AND LOCKED POSITION , CALL LIGHT WITHIN REACH, WILL CONT TO MONITOR CLOSELY ,CHEST XRAY DONE ORDERED
[2017-10-03] MEDS: ASPIRIN 81 MG TAB.CHEW PO SCH (08:52)
[2017-10-03] MEDS: FOLIC ACID 1 MG TABLET PO SCH (08:52)
[2017-10-03] MEDS: DOCUSATE SODIUM LIQ 100 MG/10 ML UDC GT SCH (08:52)
[2017-10-03] MEDS: FERROUS SULFATE (325 MG) 325 MG/TAB TABLET GT SCH (08:52)
[2017-10-03] MEDS: PANTOPRAZOLE 40 MG/PACK PACK GT SCH (08:52)
[2017-10-03] MEDS: BISACODYL (5 MG) 5 MG TABLET.DR GT SCH (08:52)
[2017-10-03] MEDS: METOPROLOL TARTRATE 25 MG TABLET PO SCH ×2 (08:53→23:32)
[2017-10-03] MEDS: MORPHINE SULFATE INJ 4 MG/ML DISP.SYRIN IV PRN ×2 (08:53→14:06)
[2017-10-03] MEDS: SIMETHICONE SUSP 40 MG/0.6 ML BOTTLE GT SCH (08:59)
--- NOTE | 2017-10-03 09:00 | NUR ---
[facility] rn note c\o general pain in body, morphine 2 mg ivp , abg done, rt at bedside as ordered, will cont to monitor closely, bp 122/77 ,sat 100%
[2017-10-03] MEDS: IV NS 0.9% 1,000 ML IV PRN (09:04)
[2017-10-03 09:36] LABS: ABG BASE EXCESS 0.4 mmol/L; ABG OXYGEN SATURATION 97.4 % (92.0-98.5); ABG PCO2 42.9 mmHg (35.0-45.0); ABG PH 7.392 (7.350-7.450); ABG PO2 111.4 mmHg (75.0-100.0); AaDO2 37.6 mmHg; COHb 0.3 % (0.5-1.5); MetHb 0.5 % (0.0-1.5); O2Hb 96.6 % (94.0-97.0); PEEP,BG 5 cm H2O; SITE, ABG Right Radial; VENT MODE, BG AC 16 400 28% +5; VT, ABG 400 mL
--- NOTE | 2017-10-03 11:51 | NUR ---
GERMAN RN NOTE SEEN BY RT ,BREATHING TX DONE ,TYLENOL FOR GENERAL PAIN GIVEN, WILL CONT TO MONITOR CLOSELY. PER DR DOYLE QUAN IVF
--- NOTE | 2017-10-03 14:34 | NUR ---
GERMAN GARRIDO NOTE C\O PAIN IN BODY, MORPHINE 2 MG IVP GIVEN ,SIN299% BP 122/78 Addendum: 10/03/17 at 1539 by BLAKE COMER RN C\O ANXIETY , ATIVAN VIA G TUBE GIVEN ORDERED ,WILL CONT TO MONITOR CLOSELY AT BEDSIDE
[2017-10-03] MEDS: RIVAROXABAN 10 MG TABLET PO SCH (16:53)
--- NOTE | 2017-10-03 18:01 | NUR ---
GERMAN RN NOTE AT BEDSIDE , WILL NEEDS ATTENDED, KEEP CLEAN DRY. ALL NEEDS ATTENDED ,WILL CONT TO MONITOR CLOSELY
--- NOTE | 2017-10-03 18:17 | NUR ---
RT NOTE PT REMAINS IN STABLE CONDITION. PT REMAINS ON VENT ON SETTINGS PRESCRIBED. ALARMS SET PER PROTOCOL AND AUDIBLE. VENT PLUGGED IN TO RED OUTLET. PT AWAKE AND ALERT. AMBU BAG AT BED SIDE. NO DISTRESS NOTED.
--- NOTE | 2017-10-03 19:10 | NUR ---
GERMAN RN NOTE FAMILY AT BEDSIDE NOT IN ACUTE DISTRESS ,WILL CONT TO MONITOR CLOSELY
--- NOTE | 2017-10-03 19:19 | NUR ---
RCVD PT ON VENT WITH NOTED SETTINGS. PT IS ALERT AND AWAKE. VENT ALARM WORKING AND AUDIBLE, VENT PLUGGED INTO RED OUTLET, AMBU BAG AT BEDSIDE. SXN SMALL AMOUNT OF YELLOW THICK SECRETIONS. TX GIVEN PER MD'S ORDERED, NO ADVERSE REACTION NOTED. NO RESPIRATORY DISTRESS NOTED AT THIS TIME . WILL CONTINUE TO MONITOR THE PT.
--- NOTE | 2017-10-03 19:35 | NUR ---
GERMAN RN INITIAL NOTE PT RECEIVED ASLEEP BUT EASILY AROUSABLE TO NAME AND LIGHT TOUCH. A/O X3 AND ABLE TO MOUTH WORDS OR WRITE NEEDS ON PAPER. ON MECH VENT WITH SETTINGS WELL TOLERATED AND SATURATING WELL. TELE- A-FLUTTER 70. IV LFA #18 CLEAN, DRY AND PATENT. GTUBE FEEDING WELL TOLERATED AND NO RESIDUALS NOTED. HOB ELEVATED AND ON ASPIRATION PRECAUTIONS. NO C/O PAIN OR DISCOMFORT NOTED. CALL LIGHT WITHIN REACH. WILL CONTINUE TO MONITOR.
[2017-10-03] MEDS: ATORVASTATIN 10 MG TABLET PO SCH (23:32)
[2017-10-03] MEDS: LEVOFLOXACIN (500MG) 500 MG TABLET PO SCH (23:33)
[2017-10-04] VITALS (7 sets, daily range): BP systolic 136–168; BP diastolic 65–79
[2017-10-04] MEDS: IPRATROPIUM NEB FS 0.5 MG/2.5 ML AMPUL.NEB NEB SCH ×6 (03:17→23:50)
[2017-10-04] MEDS: NUTREN PULMONARY 1,000 ML BAG GT PRN (04:56)
[2017-10-04] MEDS: methylPREDNISolone SOD SUCC 125 MG/2ML VIAL IV SCH ×3 (06:15→18:27)
--- NOTE | 2017-10-04 07:31 | NUR ---
GERMAN RN CLOSING NOTE PT REMAINED STABLE DURING SHIFT. NO ACUTE DISTRESS NOTED. ALL NEEDS ATTENDED TO PROMPTLY. VENT SETTINGS WELL TOLERATED. KEPT CLEAN AND DRY. HOB ELEVATION AND ON ASPIRATION PRECAUTIONS. CALL LIGHT WITHIN REACH. WILL ENDORSE TO NEXT SHIFT FOR CONTINUITY OF CARE.
--- NOTE | 2017-10-04 08:00 | NUR ---
RN NOTE(INITIAL) PATIENT RECEIVED ALERT AWAKE ORIENTED, ABLE TO MAKE NEEDS KNOWN, ABLE TO MOUTH WORDS & WRITE TO COMMUNICATE. ON VENT -TRAC, SETTINGS TOLERATING WELL. IV CATHETER INTACT, SALINE LOCK. G-TUBE RUNNING ORDERED. NO RESIDUAL NOTED. ASPIRATION PRECAUTIONS OBSERVED. ON TELE MONITOR A-FLUTTER.. SAFETY MEASURES OBSERVED. CALL LIGHT WITHIN REACH. WILL CONTINUE TO MONITOR.
[2017-10-04] MEDS: ASPIRIN 81 MG TAB.CHEW PO SCH (09:03)
[2017-10-04] MEDS: METOPROLOL TARTRATE 25 MG TABLET PO SCH ×2 (09:03→21:44)
[2017-10-04] MEDS: PANTOPRAZOLE 40 MG/PACK PACK GT SCH (09:03)
[2017-10-04] MEDS: SIMETHICONE SUSP 40 MG/0.6 ML BOTTLE GT SCH (09:04)
[2017-10-04] MEDS: FOLIC ACID 1 MG TABLET PO SCH (09:04)
[2017-10-04] MEDS: FERROUS SULFATE (325 MG) 325 MG/TAB TABLET GT SCH (09:04)
[2017-10-04] MEDS: BISACODYL (5 MG) 5 MG TABLET.DR GT SCH (09:04)
[2017-10-04] MEDS: DOCUSATE SODIUM LIQ 100 MG/10 ML UDC GT SCH (09:04)
[2017-10-04] MEDS: LORAZEPAM 1 MG TABLET PO PRN ×2 (10:03→22:58)
--- NOTE | 2017-10-04 15:42 | NUR ---
RT PT TRACH'D ALERT RESPONSIVE. VENT PLUGGED IN RED OUTLET BAG AND MASK ON BEDSIDE. ALARMS ON AND AUDIBLE. CONCHA VENT SETTINGS, TX GIVEN, CONCHA WELL NO ADVERSE REACTION NOTED ATT, WILL CONTINUE TO MONITOR SX THIN SMALL PALE YELLOW SECRETIONS.
[2017-10-04] MEDS ORDERED: PRED50TA GT (16:20)
[2017-10-04] MEDS: RIVAROXABAN 10 MG TABLET PO SCH (16:20)
[2017-10-04] MEDS ORDERED: LEVO500T75 PO (16:20)
[2017-10-04] MEDS: MORPHINE SULFATE INJ 4 MG/ML DISP.SYRIN IV PRN (16:21)
--- NOTE | 2017-10-04 19:37 | NUR ---
RN NOTES: RECEIVED DISCHARGE ORDERS DURING SHIFT. CALLED CHARGE NURSE & CASINO RUNNER. NO PLACEMENT UPDATES RECEIVED YET FROM CASINO RUNNER. ENDORSED TO PM SHIFT TO CONTINUITY OF CARE.
--- NOTE | 2017-10-04 21:55 | NUR ---
Received pt on vent support, pt stable on current settings, no SOB or respiratory distress noted.Ventilator is plugged into red outlet, alarms are audible, ambu bag at bedside. Will continue monitoring per MDS orders. Addendum: 10/04/17 at 2156 by GIANA COMBS RT Amended: Links added.
[2017-10-04] MEDS: LEVOFLOXACIN (500MG) 500 MG TABLET PO SCH (22:04)
[2017-10-04] MEDS: ATORVASTATIN 10 MG TABLET PO SCH (22:04)
[2017-10-04] MEDS: ZOLPIDEM TARTRATE 5 MG TABLET PO PRN (22:58)
[2017-10-05] VITALS (7 sets, daily range): BP systolic 98–157; BP diastolic 48–88
[2017-10-05] MEDS: methylPREDNISolone SOD SUCC 125 MG/2ML VIAL IV SCH ×5 (01:25→23:03)
[2017-10-05] MEDS: MORPHINE SULFATE INJ 4 MG/ML DISP.SYRIN IV PRN ×3 (01:26→16:37)
[2017-10-05] MEDS: IPRATROPIUM NEB FS 0.5 MG/2.5 ML AMPUL.NEB NEB SCH ×6 (03:27→23:51)
--- NOTE | 2017-10-05 07:12 | NUR ---
RN CLOSING NOTES PATIENT IN BED, NO DISTRESS NOTED. BREATHING EVEN AND UNLABORED. NO COMPLAINT OF PAIN OF THIS TIME. VITAL SIGNS WNL. KEPT CLEAN AND DRY. WILL ENDORSE TO AM SHIFT FOR CONTINUITY OF CARE.
--- NOTE | 2017-10-05 07:36 | NUR ---
GERMAN RN INITIAL NOTE RN RECEIVED PATIENT IN BED AWAKE AND ALERT ORIENTED, ABLE TO MAKE NEEDS KNOWN, . PT ON VENT -TRAC, TOLERATING SETTINGS WELL. IV CLEAN DRY AND INTACT, SALINE LOCK. G-TUBE FEEDING CURRENTLY RUNNING . NO RESIDUAL NOTED. ASPIRATION PRECAUTIONS OBSERVED. ON TELE MONITOR A-FLUTTER 70'S. SAFETY MEASURES OBSERVED. CALL LIGHT WITHIN REACH. RN WILL CONTINUE TO MONITOR THROUGHOUT THE DAY.
[2017-10-05] MEDS: FOLIC ACID 1 MG TABLET PO SCH (08:33)
[2017-10-05] MEDS: DOCUSATE SODIUM LIQ 100 MG/10 ML UDC GT SCH (08:34)
[2017-10-05] MEDS: ASPIRIN 81 MG TAB.CHEW PO SCH (08:34)
[2017-10-05] MEDS: BISACODYL (5 MG) 5 MG TABLET.DR GT SCH (08:34)
[2017-10-05] MEDS: FERROUS SULFATE (325 MG) 325 MG/TAB TABLET GT SCH (08:34)
[2017-10-05] MEDS: PANTOPRAZOLE 40 MG/PACK PACK GT SCH (08:34)
[2017-10-05] MEDS: METOPROLOL TARTRATE 25 MG TABLET PO SCH ×2 (08:34→22:04)
[2017-10-05] MEDS: NUTREN PULMONARY 1,000 ML BAG GT PRN (08:37)
[2017-10-05] MEDS: SIMETHICONE SUSP 40 MG/0.6 ML BOTTLE GT SCH (08:37)
[2017-10-05] MEDS: LORAZEPAM 1 MG TABLET PO PRN (11:12)
--- NOTE | 2017-10-05 11:12 | NUR ---
RN NOTE PATIENT STATES INCREASED ANXIETY ATIVAN GIVEN PER PATIENT REQUEST
--- NOTE | 2017-10-05 16:39 | NUR ---
RN NOTES: MORPHINE PRN ADMINISTERED PER ORDERS. BP AT 157/88, PATIENT STATES HAVE 8/10 PAIN, GENERALIZED AGGREVATED BY MOVING. PRIMARY NURSE UPDATED.
[2017-10-05] MEDS: RIVAROXABAN 10 MG TABLET PO SCH (17:22)
--- NOTE | 2017-10-05 18:15 | NUR ---
RN CLOSING NOTES PATIENT IN BED, NO DISTRESS NOTED. BREATHING EVEN AND UNLABORED TOLERATING VENT SETTING WELL. PATIENT HAS EXPRESSED INCREASED ANXIETY THROUGHOUT THE DAY HOWEVER ATIVAN HAS BEEN ANXIOUS THROUGHOUT THE DAY . NO COMPLAINT OF PAIN OF THIS TIME. VITAL SIGNS WNL. KEPT CLEAN AND DRY. WILL ENDORSE CONTINUATION OF CARE TO PM RN
--- NOTE | 2017-10-05 19:30 | NUR ---
RN/TELE NOTES: RECEIVED PATIENT IN BED AWAKE AND ALERT ORIENTED, ABLE TO MAKE NEEDS KNOWN VIA WRITING OR ABLE TO MOUTH WORDS. NO S/S OF ANY RESPIRATORY DISTRESS NOTED. PT ON VENT -TRAC, TOLERATING SETTINGS WELL. IV SL ON LFA PATENT AND INTACT W/ NO S/S OF INFECTION/INFILTRATION NTOED. G-TUBE FEEDING CURRENTLY RUNNING . NO RESIDUAL NOTED. ASPIRATION PRECAUTIONS OBSERVED. ON TELE MONITOR A-FLUTTER. SAFETY MEASURES OBSERVED. CALL LIGHT WITHIN REACH. WILL CONTINUE TO MONITOR.
--- NOTE | 2017-10-05 21:00 | NUR ---
RN/TELE NOTES: REPORT GIVEN TO NURSE CORDERO TO FLOYD.
--- NOTE | 2017-10-05 21:00 | NUR ---
RN INITIAL NOTE RN RECEIVED PATIENT IN BED AWAKE AND ALERT ORIENTED, ABLE TO MAKE NEEDS KNOWN, . PT ON VENT -TRAC, TOLERATING SETTINGS WELL. IV CLEAN DRY AND INTACT, SALINE LOCK. G-TUBE FEEDING CURRENTLY RUNNING . NO RESIDUAL NOTED. ASPIRATION PRECAUTIONS OBSERVED. ON TELE MONITOR A-FLUTTER 80'S. SAFETY MEASURES OBSERVED. CALL LIGHT WITHIN REACH. RN WILL CONTINUE TO MONITOR.
[2017-10-05] MEDS: ATORVASTATIN 10 MG TABLET PO SCH (22:03)
[2017-10-05] MEDS: LEVOFLOXACIN (500MG) 500 MG TABLET PO SCH (22:03)
[2017-10-05] MEDS: ZOLPIDEM TARTRATE 5 MG TABLET PO PRN (23:02)
[2017-10-06] VITALS (8 sets, daily range): BP systolic 105–143; BP diastolic 65–92
[2017-10-06] MEDS: LORAZEPAM 1 MG TABLET PO PRN ×2 (01:02→16:46)
[2017-10-06] MEDS: IPRATROPIUM NEB FS 0.5 MG/2.5 ML AMPUL.NEB NEB SCH ×5 (03:38→19:54)
[2017-10-06] MEDS: methylPREDNISolone SOD SUCC 125 MG/2ML VIAL IV SCH ×4 (05:08→23:43)
--- NOTE | 2017-10-06 05:45 | NUR ---
RT PT RECEIVED ON [facility] VENT WITH NOTED SETTING. ALARMS SET AND AUDIBLE. VENT TO RED OUTLET. AMBU BAG AT [facility]. ROLL CONTOUR GRINDER DONE. TRACH PATENT AND SECURE. SX MOD AMOUNT OF THICK YELLOW SECRETIONS. NO SOB OR RESP DISTRESS NOTED ON SHIFT. WILL ENDORSE TO FOLLOWING THERAPIST. Addendum: 10/06/17 at 0547 by MEHNAZ ADKINS RT Amended: Links added.
[2017-10-06] MEDS: MORPHINE SULFATE INJ 4 MG/ML DISP.SYRIN IV PRN ×2 (05:47→12:08)
--- NOTE | 2017-10-06 06:09 | NUR ---
RN CLOSING NOTE NO CHANGE IN PT CONDITION OVER NIGHT. PATIENT IN BED AWAKE AND ALERT ORIENTED, ABLE TO MAKE NEEDS KNOWN, . PT ON VENT -TRAC, TOLERATING SETTINGS WELL. IV CLEAN DRY AND INTACT, SALINE LOCK. G-TUBE FEEDING CURRENTLY RUNNING . NO RESIDUAL NOTED. ASPIRATION PRECAUTIONS OBSERVED. ON TELE MONITOR A-FLUTTER 80'S TO 100S . SAFETY MEASURES OBSERVED. CALL LIGHT WITHIN REACH. RN WILL CONTINUE TO MONITOR.
--- NOTE | 2017-10-06 07:30 | NUR ---
GERMAN RN AM NOTES RECEIVED PATIENT IN BED, ASLEEP, RESPONDS TO NAME AND TOUCH, AO X3, ABLE TO MAKE NEEDS KNOWN, WITH PORTEX [address] TRACH TO VENT SETTING ORDERED. TOLERATING SETTINGS WELL. TELEMETRY READS ATRIAL FLUTTER HR 109, NO SIGNS OF PAIN, LFA G 18, FLUSHES WELL SITE CLEAR. G-TUBE FEEDING NUTREN AT 45 ML/HR ONGOING, O RESIDUAL. HOB ELEVATED, SAFETY MEASURES OBSERVED. CALL LIGHT WITHIN REACH. WILL CONTINUE TO MONITOR.
[2017-10-06] MEDS: PANTOPRAZOLE 40 MG/PACK PACK GT SCH (08:04)
[2017-10-06] MEDS: DOCUSATE SODIUM LIQ 100 MG/10 ML UDC GT SCH (08:05)
[2017-10-06] MEDS: FOLIC ACID 1 MG TABLET PO SCH (08:05)
[2017-10-06] MEDS: FERROUS SULFATE (325 MG) 325 MG/TAB TABLET GT SCH (08:05)
[2017-10-06] MEDS: ASPIRIN 81 MG TAB.CHEW PO SCH (08:05)
[2017-10-06] MEDS: BISACODYL (5 MG) 5 MG TABLET.DR GT SCH (08:06)
[2017-10-06] MEDS: METOPROLOL TARTRATE 25 MG TABLET PO SCH ×2 (08:06→21:40)
[2017-10-06] MEDS: SIMETHICONE 80 MG TAB.CHEW GT SCH (08:33)
--- NOTE | 2017-10-06 09:30 | NUR ---
GERMAN RN NOTES DUE MEDS GIVEN.
[2017-10-06] MEDS: RIVAROXABAN 10 MG TABLET PO SCH (16:46)
--- NOTE | 2017-10-06 19:23 | NUR ---
CROCHETER HAND CLOSING NOTES PATIENT IN BED RESTING COMFORTABLY, AO X3, ABLE TO MAKE NEEDS KNOWN, WITH PORTEX [address] TRACH TO VENT SETTING ORDERED. TOLERATING SETTINGS WELL. TELEMETRY READS ATRIAL FLUTTER HR 107, NO SIGNS OF PAIN, LFA G 18, FLUSHES WELL SITE CLEAR. G-TUBE FEEDING NUTREN AT 45 ML/HR ONGOING, O RESIDUAL. HOB ELEVATED, SAFETY MEASURES OBSERVED. CALL LIGHT WITHIN REACH. ALL NEEDS MET. ASSISTED WITH TURNING AND REPOSITIONING EVERY 2 HOURS. PM CARE DONE. ENDORSED TO NEXT SHIFT FOR FLOYD.
--- NOTE | 2017-10-06 19:35 | NUR ---
CONFERENCE CONCIERGE OPENING NOTES RECEIVED PT IN BED ALERT, AWAKE, RESPONSIVE,VENT DEPENDENT.TRACH PATENT, NO RESP DISTRESS NOTED. GT IN PLACE,1ML RESIDUAL NOTED, TOLERATES GTF WELL, HOB ELEVATED. DENIES ANY PAIN OR DISCOMFORT AT THIS TIME IV SITE LT FA INTACT, PATENT NO S/SX OF INFILTRATION NOTED. KEPT CLEAN AND COMFORTABLE, TURNED AND REPOSITIONED Q2H.ATTENDED ALL NEEDS.WILL CONTINUE TO MONITOR ACCORDINGLY.
[2017-10-06] MEDS: ATORVASTATIN 10 MG TABLET PO SCH (21:40)
[2017-10-06] MEDS: ZOLPIDEM TARTRATE 5 MG TABLET PO PRN (22:29)
[2017-10-06] MEDS: LEVOFLOXACIN (500MG) 500 MG TABLET PO SCH (22:29)
[2017-10-07] VITALS (10 sets, daily range): BP systolic 110–190; BP diastolic 62–94
--- NOTE | 2017-10-07 | NUR ---
MS RN NOTES PT IN BED RESTING COMFORTABLY HR 88.WILL CONTINUE TO MONITOR ACCORDINGLY.
[2017-10-07] MEDS: IPRATROPIUM NEB FS 0.5 MG/2.5 ML AMPUL.NEB NEB SCH ×7 (00:03→23:16)
[2017-10-07] MEDS: methylPREDNISolone SOD SUCC 125 MG/2ML VIAL IV SCH ×3 (05:33→22:02)
[2017-10-07] MEDS: NUTREN PULMONARY 1,000 ML BAG GT PRN (05:34)
[2017-10-07] MEDS: MORPHINE SULFATE INJ 4 MG/ML DISP.SYRIN IV PRN ×4 (05:49→20:37)
--- NOTE | 2017-10-07 06:50 | NUR ---
RN CLOSING NOTES PT IN BED ALERT, AWAKE,VENT DEPENDENT.TRACH PATENT, NO RESPIRATORY DISTRESS NOTED. GT IN PLACE 1ML RESIDUAL NOTED, TOLERATES GTF WELL, HOB ELEVATED. DENIES ANY PAIN OR DISCOMFORT AT THIS TIME.TRACH CARE DONE. BED LOCKED IN LOWEST POSITION.REFUSED PICTURES TO BE TAKEN, OFFERED X3, EXPLAINED BENEFITS. KEPT CLEAN AND COMFORTABLE,ATTENDED ALL NEEDS. WILL CONTINUE TO MONITOR ACCORDINGLY.
--- NOTE | 2017-10-07 07:56 | NUR ---
MS RN NOTES PATIENT IN BED, AWAKE, A/O 3. TRACH INTACT, ON VENT. AFLUTTER HR 95 ON THE MONITOR, SATING 97% NO SOB. ABDOMEN PRESENCE OF GTUBE WITH NUTREN FEEDING AT 45ML/HR, HOB ELEVATED. CALL LIGHT WITHIN REACH. WILL CONT TO MONITOR.
[2017-10-07] MEDS: LORAZEPAM 1 MG TABLET PO PRN (08:56)
--- NOTE | 2017-10-07 09:01 | NUR ---
PATIENT ANXIOUS AND RESTLESS, SATING 98%, BREATHING NON LABORED, NO SOB. GIVEN ATIVAN 1MG PRN FOR ANXIETY, WILL REASSESS.
[2017-10-07] MEDS: FOLIC ACID 1 MG TABLET PO SCH (09:27)
[2017-10-07] MEDS: ASPIRIN 81 MG TAB.CHEW PO SCH (09:27)
[2017-10-07] MEDS: FERROUS SULFATE (325 MG) 325 MG/TAB TABLET GT SCH (09:27)
[2017-10-07] MEDS: PANTOPRAZOLE 40 MG/PACK PACK GT SCH (09:27)
[2017-10-07] MEDS: DOCUSATE SODIUM LIQ 100 MG/10 ML UDC GT SCH (09:27)
[2017-10-07] MEDS: METOPROLOL TARTRATE 25 MG TABLET PO SCH ×2 (09:28→22:02)
[2017-10-07] MEDS: SIMETHICONE 80 MG TAB.CHEW GT SCH (09:28)
[2017-10-07] MEDS: BISACODYL (5 MG) 5 MG TABLET.DR GT SCH (09:29)
--- NOTE | 2017-10-07 09:30 | NUR ---
PATIENT IN BED, APPEARS CALM AND RELAX. ATIVAN 1MG PRN EFFECTIVE.
--- NOTE | 2017-10-07 14:58 | NUR ---
AFLUTTER HR 195 IMMEDIATELY CHECKED THE PATIENT, IN UPRIGHT SITTING POSITION, RAPID BREATHING NOTED, TRACH INTACT, ON VENT. TAKING V/S WHILE ANOTHER NURSE CALLING RAPID RESPONSE, BP 133/57 P190 BS 207MG/DL. NOTIFIED DR. MORALEZ.
--- NOTE | 2017-10-07 15:00 | NUR ---
RAPID RESPONSE ARRIVED, TAKES OVER CARE. RE CHECK BP INCREASING TO 190/90. CHARGE NURSE, BOARDING HOUSE MANAGER AT THE BEDSIDE.
--- NOTE | 2017-10-07 15:11 | NUR ---
RECEIVED PHONE CALL FROM DR. MORALEZ, ORDERED TO PLACE PATIENT ON CARDIZEM DRIP TITRATE FOR COMFORT.
[2017-10-07] MEDS ORDERED: DILTIAZEM HCL 50 MG IV IV STA (15:18)
--- NOTE | 2017-10-07 15:20 | NUR ---
PER ABRAHAM/RN PATIENT WILL BE PLACE ON IVP CARDIZEM PER DR. MORALEZ.
[2017-10-07] MEDS ORDERED: LORAZEPAM INJ 2 MG/ML VIAL IV PRN (15:30)
[2017-10-07] MEDS ORDERED: DILTIAZEM HCL 25 MG IV IV PRN (16:00)
[2017-10-07] MEDS: RIVAROXABAN 10 MG TABLET PO SCH (16:14)
--- NOTE | 2017-10-07 16:20 | NUR ---
PATIENT IN BED, APPEARS CALM AND RELAX, AFLUTTER HR 94 ON THE MONITOR. WILL CONT TO MONITOR. AT THE BEDSIDE.
--- NOTE | 2017-10-07 16:47 | NUR ---
RT PT TRACHD INTACT AND SECURED ALERT ORIENTED. CONCHA VENT SETTINGS ALARMS ON AND AUDIBLE AMBU BAG AT BEDSIDE. INITIAL TX GIVEN CONCHA WELL, 2ND TX GIVEN WITH XOPENEX PER HUSBANDS REQUEST PRN AFTER 1 HOUR PT BECAME ANXIOUS WITH INCREASED HR. 3RD TX GIVEN CONCHA WELL NO ADVERSE REACTION WILL CONTINUE TO MONITOR
[2017-10-07] MEDS: DILTIAZEM HCL 30 MG TABLET PO SCH (17:38)
[2017-10-07] MEDS: LORAZEPAM 1 MG TABLET GT PRN (18:31)
--- NOTE | 2017-10-07 18:44 | NUR ---
HOSPITAL SECURITY OFFICER CLOSING NOTES PATIENT IN BED, SITTING UPRIGHT. A/O X4, REMAINS AFLUTTER HR 87 ON THE MONITOR. TRACH INTACT, SUCTION PRN. VENT SETTINGS REMAINS THE SAME. DR. MCCULLOUGH/CARDIO REVIEWED CARDIZEM ORDERS, PATIENT AND FAMILY WAS INFORMED. GTUBE INTACT WITH FEEDING NUTREN AT 45ML/HR, TOLERATING WELL, NO EPISODE OF VOMITING. EPISODE OF ANXIETY DURING THE SHIFT, MEDICATED WITH PRN ATIVAN WITH HELPED. CALL LIGHT WITHIN REACH. WILL ENDORSE TO ONCOMING RN.
--- NOTE | 2017-10-07 19:30 | NUR ---
GERMAN RN INITIAL NOTES RECEIVED PATIENT AWAKE A/OX4, ABLE MOUTH NEEDS. PATIENT VENT DEPENDENT. DAUGHTER AT BEDSIDE. PATIENT C/O LEFT BREAST AND TRACH SITE PAIN, STATES IT'S NOTHING NEW. STATES SHE FEELS ANXIOUS, EXPLAINED ATIVAN WAS NOT YET DUE. PATIENT UNDERSTOOD. RESPIRATIONS EVEN AND UNLABORED. WITH VENT SETTINGS AC 16, TV 400, FIO2 28%, PEEP 5. SPO2 100%. ON TELE MONITOR AFLUTTER 116. SKIN WARM AND DRY TO TOUCH. WITH GT PATENT AND INTACT, IN PLACE, NO RESIDUAL NOTED. HOB ELEVATED. SIDE RAILS UP AND LOCKED. BED KEPT AT LOWEST POSITION. CALL LIGHT KEPT WITHIN EASY REACH. WILL CONTINUE TO MONITOR.
--- NOTE | 2017-10-07 20:00 | NUR ---
PT RCVD ON VENT WITH NOTED SETTINGS. PT IS ALERT AND AWAKE. BREATHING TX GIVEN PER MD'S ORDERED. VENTS PLUGGED INTO RED OUTLET, VENT ALARM WORKING AND AUDIBLE. SUCTIONED MODERATE AMOUNT OF YELLOW THICK SECRETIONS. BILATERAL BS NOTED, NO RESPIRATORY DISTRESS NOTED AT THIS TIME. WILL CONTINUE TO MONITOR THE PT.
[2017-10-07] MEDS: ATORVASTATIN 10 MG TABLET PO SCH (22:02)
[2017-10-07] MEDS: NITROGLYCERIN 0.4 MG/TAB BOTTLE SL PRN ×3 (23:38→23:51)
[2017-10-07] MEDS: LEVOFLOXACIN (500MG) 500 MG TABLET PO SCH (23:39)
--- NOTE | 2017-10-07 23:41 | NUR ---
PATIENT C/O LEFT SIDED CHEST PAIN, LOCALIZED, NON-RADIATING. STATES FEELS LIKE PRESSURE LIKE. PATIENT NON-DIAPHORETIC. NO RESPIRATORY DISTRESS NOTED. SKIN WARM AND DRY TO TOUCH. BP 131/74, HR 80. PRN NITRO GIVEN. WILL CONTINUE TO MONITOR.
[2017-10-07] MEDS: ACETAMINOPHEN 325 MG TABLET PO PRN (23:59)
[2017-10-08] VITALS (9 sets, daily range): BP systolic 96–131; BP diastolic 55–76
[2017-10-08] MEDS: ZOLPIDEM TARTRATE 5 MG TABLET PO PRN (00:02)
--- NOTE | 2017-10-08 00:18 | NUR ---
PATIENT STATES CHEST PAIN IS SUBSIDING AFTER NITROGLYCERIN. C/O HEADACHE AND NAUSEA. COLD TOWEL PLACED ON HEAD, PRN ZOFRAN AND TYLENOL GIVEN. WILL CONTINUE TO MONITOR.
[2017-10-08] MEDS: DILTIAZEM HCL 30 MG TABLET PO SCH ×4 (01:13→17:00)
--- NOTE | 2017-10-08 02:29 | NUR ---
PATIENT C/O FEELING ANXIOUS AND DIFFICULTY BREATHING. SPO2 100%. NON-DIAPHORETIC. BP 154/86, HR 104. INFORMED RT TO GIVE BREATHING TX. INFORMED DR. KWON WITH ORDERS FOR ATIVAN 1MG IV Q6 PRN. NOTED AND CARRIED OUT. WILL CONTINUE TO MONITOR.
[2017-10-08] MEDS ORDERED: LORAZEPAM INJ 2 MG/ML VIAL ONE (02:33)
[2017-10-08] MEDS: LORAZEPAM INJ 2 MG/ML VIAL IV PRN ×2 (02:38→20:19)
--- NOTE | 2017-10-08 03:00 | NUR ---
PATIENT RESTING COMFORTABLY. STATES SHE'S FEELING BETTER. WILL CONTINUE TO MONITOR.
[2017-10-08] MEDS: IPRATROPIUM NEB FS 0.5 MG/2.5 ML AMPUL.NEB NEB SCH ×6 (03:09→23:20)
[2017-10-08] MEDS: NUTREN PULMONARY 1,000 ML BAG GT PRN (05:52)
--- NOTE | 2017-10-08 07:08 | NUR ---
GERMAN RN CLOSING NOTES PATIENT RESTING COMFORTABLY. CURRENTLY AFLUTTER 77. NO RESPIRATORY DISTRESS NOTED. TOLERATING CURRENT VENT SETTINGS. TOLERATING GTF. SKIN WARM AND DRY TO TOUCH. KEPT CLEAN AND DRY. TURNED AND REPOSITIONED Q2 AND PRN. Z GUARD APPLIED NEEDED. CONTINUITY OF CARE ENDORSED TO AM NURSE.
--- NOTE | 2017-10-08 07:59 | NUR ---
GERMAN RN NOTE PATIENT IN BED , ALL NEEDS ATTENDED, RESTING COMFORTABLY IN BED FOR NOW, ON TELE MONITOR A FLATTER HR 70 . ON G TUBE FEEDING ORDERED ,KEEP HOB ELEVATED AT ALL TIME , BED IN LOWERS AND LOCKED POSITION , CALL LIGHT WITHIN REACH, WILL CONT TO MONITOR CLOSELY
[2017-10-08] MEDS: methylPREDNISolone SOD SUCC 125 MG/2ML VIAL IV SCH ×2 (08:59→20:18)
[2017-10-08] MEDS: DOCUSATE SODIUM LIQ 100 MG/10 ML UDC GT SCH (08:59)
[2017-10-08] MEDS: BISACODYL (5 MG) 5 MG TABLET.DR GT SCH (09:00)
[2017-10-08] MEDS: ACETAMINOPHEN 325 MG TABLET PO PRN (09:00)
[2017-10-08] MEDS: FERROUS SULFATE (325 MG) 325 MG/TAB TABLET GT SCH (09:01)
[2017-10-08] MEDS: FOLIC ACID 1 MG TABLET PO SCH (09:01)
[2017-10-08] MEDS: ASPIRIN 81 MG TAB.CHEW PO SCH (09:01)
[2017-10-08] MEDS: PANTOPRAZOLE 40 MG/PACK PACK GT SCH (09:01)
[2017-10-08] MEDS: METOPROLOL TARTRATE 25 MG TABLET PO SCH ×2 (09:01→21:00)
[2017-10-08] MEDS: SIMETHICONE 80 MG TAB.CHEW GT SCH (09:01)
--- NOTE | 2017-10-08 11:00 | NUR ---
AUTO SERVICE DISPATCHER NOTE SEEN Y DR MCCULLOUGH WITH ORDER CHEST XRAY IN AM , ALL NEEDS ATTENDED NOT IN ACUTE DISTRESS NO C\O PAIN AFTER TYLENOL WAS GIVE IN AM
--- NOTE | 2017-10-08 15:00 | NUR ---
DOUGHNUT MAKER NOTE AT BEDSIDE , NOT IN ACUTE DISTRESS ,KEEP CLEAN DRY , CALL LIGHT WITHIN REACH
[2017-10-08] MEDS: MORPHINE SULFATE INJ 4 MG/ML DISP.SYRIN IV PRN (15:28)
--- NOTE | 2017-10-08 15:30 | NUR ---
PLASTICS SUPERVISOR NOTE C\O GENERAL PAIN IN BODY ,MORPHINE 2 MG IVP GIVEN ORDERED SAT 98% AT THIS TIME
--- NOTE | 2017-10-08 16:50 | NUR ---
HEEL BUFFER NOTE LENKA RN DRIER AND EVAPORATOR OPERATOR AT BEDSIDE OK TO ORDER SWALLOW EVAL AND ICE CHIPS TO GIVE
[2017-10-08] MEDS: RIVAROXABAN 10 MG TABLET PO SCH (16:55)
[2017-10-08] MEDS: LORAZEPAM 1 MG TABLET GT PRN (17:05)
--- NOTE | 2017-10-08 17:23 | NUR ---
PROPERTY COORDINATOR NOTE C\P ANXIOUS AND SOB ,SPOKE WITH LENKA STATED OK TO GIVE ATIVAN, RT AT BEDSIDE ,SAT 96%5 Addendum: 10/08/17 at 1725 by BLAKE COMER RN ATIVAN 1 MG VIA G TUBE GIVEN ORDERED, AT BEDSIDE, WILL CONT TO MONITOR CLOSELY
--- NOTE | 2017-10-08 18:34 | NUR ---
BENCH BORING MACHINE OPERATOR NOTE AT BEDSIDE , ALL NEEDS ATTENDED, NO S\S ANXIETY AT THIS TIME, NO SOB ,WILL CONT TO MONITOR CLOSELY
--- NOTE | 2017-10-08 21:13 | NUR ---
RN NOTES HELD LOPRESSOR 25MG FOR 21:00 DUE TO SYSTOLIC BP OF 102. WILL CONTINUE TO MONITOR PATIENT.
--- NOTE | 2017-10-08 21:30 | NUR ---
RN NOTES. HELD GTUBE FEEDING. AT 21:30 LEVAQUIN TO BE ADMINISTERED IN 1 HOUR VIA GTUBE
[2017-10-08] MEDS: LEVOFLOXACIN (500MG) 500 MG TABLET PO SCH (22:33)
[2017-10-08] MEDS: ATORVASTATIN 10 MG TABLET PO SCH (22:33)
[2017-10-09] VITALS: BP 139/75
[2017-10-09] MEDS: DILTIAZEM HCL 30 MG TABLET PO SCH ×4 (00:12→17:41)
[2017-10-09] MEDS: IPRATROPIUM NEB FS 0.5 MG/2.5 ML AMPUL.NEB NEB SCH ×6 (03:24→23:22)
[2017-10-09] MEDS: LORAZEPAM INJ 2 MG/ML VIAL IV PRN ×3 (03:37→22:15)
[2017-10-09 04:00] VITALS: BP 123/63
[2017-10-09 06:36] LABS: BASOPHILS % (AUTO) 0.1 % (0.0-2.0); HEMATOCRIT 39 % (33-45); HEMOGLOBIN 12.5 g/dL (11.5-14.8); LYMPHOCYTES # (AUTO) 0.9 /CMM (0.8-4.8); LYMPHOCYTES % (AUTO) 5.3 % (20.0-44.0); MEAN CORPUSCULAR HEMOGLOBIN 28 PG (26.0-33.0); MEAN CORPUSCULAR HGB CONC 32 g/dl (31.0-36.0); MEAN CORPUSCULAR VOLUME 88 fL (82-100); MONOCYTES # (AUTO) 0.7 /CMM (0.1-1.30); NEUTROPHILS % (AUTO) 90.6 % (43.0-81.0); PLATELET COUNT (AUTO) 268 /CMM (150-450); RDW COEFFICIENT OF VARIATION 16.7 (11.5-15.0); WHITE BLOOD COUNT (AUTO) 17.6 K/uL (4.3-11.0)
[2017-10-09] MEDS: MORPHINE SULFATE INJ 4 MG/ML DISP.SYRIN IV PRN ×3 (06:42→19:48)
[2017-10-09] MEDS: NUTREN PULMONARY 1,000 ML BAG GT PRN (06:47)
[2017-10-09 06:51] LABS: ALBUMIN 2.9 g/dL (3.4-5.0); BILIRUBIN,TOTAL 0.5 mg/dL (0.2-1.0); CALCIUM, SERUM 9.1 mg/dL (8.5-10.1); CREATININE 0.7 mg/dL (0.6-1.3); MAGNESIUM 2.1 mg/dL (1.8-2.4); PHOSPHORUS 2.3 mg/dL (2.5-4.9); POTASSIUM 4.2 mmol/L (3.5-5.1); TOTAL PROTEIN, SERUM 6.7 g/dL (6.4-8.2)
[2017-10-09 07:18] LABS: BAND % (MANUAL) 1 % (0.0-5.0); LYMPHOCYTES % (MANUAL) 2 % (16-48); MONOCYTES % (MANUAL) 10 % (0-11.0); NEUTROPHILS % (MANUAL) 87 (42-76)
[2017-10-09 09:15] VITALS: BP 105/55
[2017-10-09] MEDS: FERROUS SULFATE (325 MG) 325 MG/TAB TABLET GT SCH (09:23)
[2017-10-09] MEDS: SIMETHICONE 80 MG TAB.CHEW GT SCH (09:23)
[2017-10-09] MEDS: METOPROLOL TARTRATE 25 MG TABLET PO SCH ×2 (09:25→22:15)
[2017-10-09] MEDS: ASPIRIN 81 MG TAB.CHEW PO SCH (09:25)
[2017-10-09] MEDS: FOLIC ACID 1 MG TABLET PO SCH (09:25)
[2017-10-09] MEDS: PANTOPRAZOLE 40 MG/PACK PACK GT SCH (09:25)
[2017-10-09] MEDS: BISACODYL (5 MG) 5 MG TABLET.DR GT SCH (09:25)
[2017-10-09] MEDS: DOCUSATE SODIUM LIQ 100 MG/10 ML UDC GT SCH (09:26)
[2017-10-09] MEDS: methylPREDNISolone SOD SUCC 125 MG/2ML VIAL IV SCH ×2 (09:26→22:15)
[2017-10-09 11:46] VITALS: BP 114/75
[2017-10-09 11:52] LABS: ABG BASE EXCESS 3.7 mmol/L; ABG OXYGEN SATURATION 96.5 % (92.0-98.5); ABG PCO2 43.5 mmHg (35.0-45.0); ABG PH 7.434 (7.350-7.450); ABG PO2 91.3 mmHg (75.0-100.0); COHb 0.2 % (0.5-1.5); MetHb 0.3 % (0.0-1.5); PEEP,BG 0 cm H2O; SITE, ABG Right Radial
--- NOTE | 2017-10-09 11:52 | NUR ---
VENT CHANGES BELLOW ORDER: NO PEEP PER DR. ELISE. Addendum: 10/09/17 at 1153 by TERRENCE KAPLAN RT Amended: Links added.
[2017-10-09] MEDS ORDERED: POTASSIUM PHOSPHATE MM 7.5 MMOL in IV D5W 100 ML IV SCH (14:30)
[2017-10-09 16:50] VITALS: BP 112/69
[2017-10-09] MEDS: RIVAROXABAN 10 MG TABLET PO SCH (17:46)
--- NOTE | 2017-10-09 18:32 | NUR ---
RT NOTE PATIENT RECEIVED ON AC 28%. TRACH SECURED AND PATENT. ALARMS ON AND AUDIBLE. HME REPLACED AT END OF SHIFT. NO SOB NOTED. VENTILATION PLUGGED IN RED OUTLET. Addendum: 10/09/17 at 1841 by LUCRETIA JOHNSON RT Amended: Links added.
--- NOTE | 2017-10-09 19:13 | NUR ---
RT NOTE TRACH PT RCVD ON VENT WITH NOTED SETTINGS. TRACH IS PATENT AND SECURED. SCREW MACHINE HAND DONE. PT IS ALERT AND AWAKE. Q4 BREATHING TX GIVEN PER MD'S ORDERED WITH NO ADVERSE REACTION. VENTS PLUGGED INTO RED OUTLET, VENT ALARM WORKING AND AUDIBLE. AMBU BAG BY BEDSIDE. SUCTIONED MODERATE AMOUNT OF YELLOW THICK SECRETIONS. NO RESPIRATORY DISTRESS NOTED AT THIS TIME. WILL CONTINUE TO MONITOR THE PT.
--- NOTE | 2017-10-09 19:30 | NUR ---
LABORATORY AIDE INITIAL NOTE PT RECEIVED UP IN BED. A/O X3 AND ABLE TO MOUTH WORDS. ON MECH VENT AND SATURATING WELL. HOB ELEVATED AND ON ASPIRATION PRECAUTIONS. GTUBE IN PLACE AND FEEDING WELL TOLERATED WITH NO RESIDUALS NOTED. CALL LIGHT WITHIN REACH. WILL CONTINUE TO MONITOR.
[2017-10-09 20:00] VITALS: BP 133/77
[2017-10-09] MEDS: ATORVASTATIN 10 MG TABLET PO SCH (22:14)
[2017-10-09] MEDS: LEVOFLOXACIN (500MG) 500 MG TABLET PO SCH (22:23)
[2017-10-10] VITALS (7 sets, daily range): BP systolic 124–151; BP diastolic 58–82
[2017-10-10] MEDS: DILTIAZEM HCL 30 MG TABLET PO SCH ×4 (00:57→17:05)
[2017-10-10] MEDS: MORPHINE SULFATE INJ 4 MG/ML DISP.SYRIN IV PRN ×5 (02:03→21:29)
[2017-10-10] MEDS: IPRATROPIUM NEB FS 0.5 MG/2.5 ML AMPUL.NEB NEB SCH ×5 (04:05→20:28)
[2017-10-10] MEDS: NUTREN PULMONARY 1,000 ML BAG GT PRN (06:24)
[2017-10-10 06:54] LABS: BASOPHILS % (AUTO) 0.1 % (0.0-2.0); HEMATOCRIT 38 % (33-45); HEMOGLOBIN 12.3 g/dL (11.5-14.8); LYMPHOCYTES # (AUTO) 1.1 /CMM (0.8-4.8); LYMPHOCYTES % (AUTO) 6.3 % (20.0-44.0); MEAN CORPUSCULAR HEMOGLOBIN 28 PG (26.0-33.0); MEAN CORPUSCULAR HGB CONC 32 g/dl (31.0-36.0); MEAN CORPUSCULAR VOLUME 89 fL (82-100); MONOCYTES # (AUTO) 0.3 /CMM (0.1-1.30); MONOCYTES % (AUTO) 1.5 % (2.0-12.0); NEUTROPHILS # (AUTO) 16.4 /CMM (1.8-8.9); NEUTROPHILS % (AUTO) 92.1 % (43.0-81.0); PLATELET COUNT (AUTO) 270 /CMM (150-450); RDW COEFFICIENT OF VARIATION 16.7 (11.5-15.0); RED BLOOD CELL COUNT(AUTO) 4.32 MIL/uL (4.0-5.2); WHITE BLOOD COUNT (AUTO) 17.8 K/uL (4.3-11.0)
[2017-10-10 07:28] LABS: CALCIUM, SERUM 8.6 mg/dL (8.5-10.1); CREATININE 0.6 mg/dL (0.6-1.3); POTASSIUM 4.6 mmol/L (3.5-5.1)
--- NOTE | 2017-10-10 07:30 | NUR ---
PALM AND BACK FORGER AM NOTES RECEIVED PATIENT IN BED, ASLEEP, RESPONDS TO NAME AND TOUCH, AO X3, ABLE TO MAKE NEEDS KNOWN, WITH PORTEX [address] TRACH TO VENT SETTING ORDERED. TOLERATING SETTINGS WELL. TELEMETRY READS AFIB HR 90, NO SIGNS OF PAIN, LFA G 22, FLUSHES WELL SITE CLEAR. G-TUBE FEEDING NUTREN AT 45 ML/HR ONGOING, O RESIDUAL. HOB ELEVATED, SAFETY MEASURES OBSERVED. CALL LIGHT WITHIN REACH. WILL CONTINUE TO MONITOR.
--- NOTE | 2017-10-10 07:54 | NUR ---
KINDERGARTEN ASSISTANT CLOSING NOTE PT REMAINED STABLE DURING SHIFT. PAIN MANAGED THROUGHOUT THE SHIFT. NO ACUTE DISTRESS NOTED. ALL NEEDS ATTENDED TO PROMPTLY. SUCTIONED NEEDED. REPOSITIONED Q2H. HOB REMAINED ELEVATED. CALL LIGHT WITHIN REACH. WILL ENDORSE TO NEXT SHIFT FOR CONTINUITY OF CARE.
--- NOTE | 2017-10-10 09:30 | NUR ---
THERMOPLASTIC TECHNICIAN NOTES DUE MEDS GIVEN.
[2017-10-10] MEDS: DOCUSATE SODIUM LIQ 100 MG/10 ML UDC GT SCH (09:39)
[2017-10-10] MEDS: methylPREDNISolone SOD SUCC 125 MG/2ML VIAL IV SCH ×2 (09:40→20:54)
[2017-10-10] MEDS: FOLIC ACID 1 MG TABLET PO SCH (09:40)
[2017-10-10] MEDS: ASPIRIN 81 MG TAB.CHEW PO SCH (09:40)
[2017-10-10] MEDS: SIMETHICONE 80 MG TAB.CHEW GT SCH (09:40)
[2017-10-10] MEDS: PANTOPRAZOLE 40 MG/PACK PACK GT SCH (09:40)
[2017-10-10] MEDS: FERROUS SULFATE (325 MG) 325 MG/TAB TABLET GT SCH (09:40)
[2017-10-10] MEDS: BISACODYL (5 MG) 5 MG TABLET.DR GT SCH (09:40)
[2017-10-10] MEDS: METOPROLOL TARTRATE 25 MG TABLET PO SCH ×2 (09:41→20:55)
[2017-10-10] MEDS: RIVAROXABAN 10 MG TABLET PO SCH (17:06)
[2017-10-10] MEDS: LORAZEPAM INJ 2 MG/ML VIAL IV PRN (18:39)
--- NOTE | 2017-10-10 19:35 | NUR ---
PLATE DEVELOPER CLOSING NOTES PATIENT IN BED RESTING COMFORTABLY, AO X3, ABLE TO MAKE NEEDS KNOWN, WITH PORTEX [address] TRACH TO VENT SETTING ORDERED. TOLERATING SETTINGS WELL. TELEMETRY READS AFIB HR 90, NO SIGNS OF PAIN, LFA G 22, FLUSHES WELL SITE CLEAR. G-TUBE FEEDING NUTREN AT 45 ML/HR ONGOING, O RESIDUAL. HOB ELEVATED, SAFETY MEASURES OBSERVED. CALL LIGHT WITHIN REACH. ALL NEEDS MET. ASSISTED WITH TURNING AND REPOSITIONING EVERY 2 HOURS. PM CARE DONE. ENDORSED TO NEXT SHIFT FOR FLOYD.
--- NOTE | 2017-10-10 19:58 | NUR ---
POKER DEALER AM NOTES RECEIVED PATIENT IN BED, AWAKE, RESPONDS TO NAME AND TOUCH, AO X3, ABLE TO MAKE NEEDS KNOWN, WITH PORTEX [address] TRACH TO VENT SETTING ORDERED, VENT PLUGGED TO RED OUTLET. TOLERATING SETTINGS WELL. TELEMETRY READS AFIB , NO SIGNS OF PAIN, LFA G 22, G-TUBE FEEDING NUTREN AT 45 ML/HR ONGOING, HOB ELEVATED, SAFETY MEASURES TAKEN, PAIN LEVEL 7/10, CALL LIGHT WITHIN REACH. WILL, BED IN THE LOW POSITION, WILL CONTINUE TO MONITOR
[2017-10-10] MEDS: ATORVASTATIN 10 MG TABLET PO SCH (21:29)
[2017-10-11] VITALS (8 sets, daily range): BP systolic 98–144; BP diastolic 66–78
[2017-10-11] MEDS: DILTIAZEM HCL 30 MG TABLET PO SCH ×5 (00:04→23:47)
[2017-10-11] MEDS: LEVOFLOXACIN (500MG) 500 MG TABLET PO SCH ×2 (00:07→23:47)
[2017-10-11] MEDS: IPRATROPIUM NEB FS 0.5 MG/2.5 ML AMPUL.NEB NEB SCH ×6 (00:16→19:27)
[2017-10-11] MEDS: LORAZEPAM 1 MG TABLET GT PRN ×2 (02:08→10:12)
[2017-10-11] MEDS: MORPHINE SULFATE INJ 4 MG/ML DISP.SYRIN IV PRN ×4 (05:14→19:23)
[2017-10-11] MEDS: NUTREN PULMONARY 1,000 ML BAG GT PRN (05:37)
--- NOTE | 2017-10-11 05:56 | NUR ---
RT Pt trach remains on [facility] vent ordered settings. no resp distress. Addendum: 10/11/17 at 0557 by JESE GRANT RT Amended: Links added.
--- NOTE | 2017-10-11 07:04 | NUR ---
RN CLOSING NOTES PATIENT IN BED RESTING COMFORTABLY, asleep AO X3, ABLE TO COMMUNICATE PORTEX [address], PER DR PAGE FIO2 50%, MECHANICAL VENTILATOR PLUGED IN THE RED OUTLET AND WORKING PROPERLY, TOLERATES SETTINGS WELL. TELEMETRY READS A-FLUTTER HR 76, NO , LFA G 22, RFA 22 GAUGE, FLUSHES WELL SITE CLEAR. G-TUBE FEEDING NUTREN AT 45 ML/HR ONGOING, O RESIDUAL. HOB ELEVATED, SAFETY MEASURES OBSERVED. CALL LIGHT WITHIN REACH. ALL NEEDS MET. ASSISTED WITH TURNING AND REPOSITIONING EVERY 2 HOURS. PM CARE PERFORMED. ENDORSED TO AM NURSE FOR FLOYD.
--- NOTE | 2017-10-11 07:30 | NUR ---
HOT WORT SETTLER AM NOTES RECEIVED PATIENT IN BED, ASLEEP, RESPONDS TO NAME AND TOUCH, AO X3, ABLE TO MAKE NEEDS KNOWN, WITH PORTEX [address] TRACH TO VENT SETTING ORDERED. TOLERATING SETTINGS WELL. TELEMETRY READS A FLUTTER HR 98, NO SIGNS OF PAIN, SUDHIR G 22 AND LFA G 22, FLUSHES WELL SITE CLEAR. G-TUBE FEEDING NUTREN AT 45 ML/HR ONGOING, O RESIDUAL. HOB ELEVATED, SAFETY MEASURES OBSERVED. CALL LIGHT WITHIN REACH. WILL CONTINUE TO MONITOR.
--- NOTE | 2017-10-11 09:30 | NUR ---
STATION HELPER NOTES DUE MEDS GIVEN.
[2017-10-11] MEDS: ASPIRIN 81 MG TAB.CHEW PO SCH (09:58)
[2017-10-11] MEDS: BISACODYL (5 MG) 5 MG TABLET.DR GT SCH (09:58)
[2017-10-11] MEDS: METOPROLOL TARTRATE 25 MG TABLET PO SCH ×2 (09:58→21:48)
[2017-10-11] MEDS: FERROUS SULFATE (325 MG) 325 MG/TAB TABLET GT SCH (09:58)
[2017-10-11] MEDS: PANTOPRAZOLE 40 MG/PACK PACK GT SCH (09:58)
[2017-10-11] MEDS: SIMETHICONE 80 MG TAB.CHEW GT SCH (09:59)
[2017-10-11] MEDS: DOCUSATE SODIUM LIQ 100 MG/10 ML UDC GT SCH (09:59)
[2017-10-11] MEDS: methylPREDNISolone SOD SUCC 125 MG/2ML VIAL IV SCH ×2 (10:00→21:44)
[2017-10-11] MEDS: FOLIC ACID 1 MG TABLET PO SCH (10:01)
[2017-10-11] MEDS ORDERED: LIDOCAINE 4% PF AMPUL 40 MG/ML AMPUL IH PRN (15:30)
[2017-10-11] MEDS: RIVAROXABAN 10 MG TABLET PO SCH (17:01)
--- NOTE | 2017-10-11 19:26 | NUR ---
BUSINESS PERFORMANCE ANALYST CLOSING NOTES PATIENT IN BED RESTING COMFORTABLY, AO X3, ABLE TO MAKE NEEDS KNOWN, WITH PORTEX [address] TRACH TO VENT SETTING ORDERED. TOLERATING SETTINGS WELL. TELEMETRY READS AFIB HR 92, NO SIGNS OF PAIN, LFA G 22, FLUSHES WELL SITE CLEAR. G-TUBE FEEDING NUTREN AT 45 ML/HR ONGOING, O RESIDUAL. HOB ELEVATED, SAFETY MEASURES OBSERVED. CALL LIGHT WITHIN REACH. ALL NEEDS MET. ASSISTED WITH TURNING AND REPOSITIONING EVERY 2 HOURS. PM CARE DONE. ENDORSED TO NEXT SHIFT FOR FLOYD.
--- NOTE | 2017-10-11 20:50 | NUR ---
BEAUTY CULTURIST NOTES RECEIVED PATIENT IN BED, AWAKE, WATCHING TV AT THIS TIME. AO X3, ABLE TO MAKE NEEDS KNOWN. TRACH WITH VENT, SUCTIONED PRN. NO C/O PAIN OR DISCOMFORT AT THIS TIME. SUDHIR G 22 AND LFA G 22, FLUSHES WELL. NO S/S OF INFILTRATION NOTED. GTF INTACT AND PATENT, GTF ONGOING, CONCHA WELL. HOB ELEVATED, SAFETY AND ASPIRATION PRECAUTION OBSERVED. CALL LIGHT WITHIN REACH. WILL CONTINUE TO MONITOR.
[2017-10-11] MEDS: ATORVASTATIN 10 MG TABLET PO SCH (21:48)
[2017-10-12] VITALS: BP 133/73
[2017-10-12] MEDS: IPRATROPIUM NEB FS 0.5 MG/2.5 ML AMPUL.NEB NEB SCH ×7 (00:03→23:10)
[2017-10-12] MEDS: MORPHINE SULFATE INJ 4 MG/ML DISP.SYRIN IV PRN ×2 (01:29→18:19)
[2017-10-12] MEDS: LORAZEPAM 1 MG TABLET GT PRN (03:49)
[2017-10-12 04:00] VITALS: BP_SYST 122; BP_SYST 126; BP_DIAS 64; BP_DIAS 83
[2017-10-12] MEDS: DILTIAZEM HCL 30 MG TABLET PO SCH ×3 (06:15→18:16)
[2017-10-12] MEDS: NUTREN PULMONARY 1,000 ML BAG GT PRN (06:30)
--- NOTE | 2017-10-12 06:52 | NUR ---
WELL DRILL OPERATOR ROTARY DRILL NOTES PATIENT IN BED, AWAKE, RESTING COMFORTABLY AT THIS TIME, AROUSES EASILY. A/O X3, ABLE TO MAKE NEEDS KNOWN. TRACH WITH VENT, SUCTIONED PRN. NO C/O PAIN OR DISCOMFORT AT THIS TIME. SUDHIR G 22 AND LFA G 22, FLUSHES WELL. NO S/S OF INFILTRATION NOTED. GTF INTACT AND PATENT, GTF ONGOING, CONCHA WELL. HOB ELEVATED, SAFETY AND ASPIRATION PRECAUTION OBSERVED. CALL LIGHT WITHIN REACH. WILL ENDORSE TO NEXT SHIFT FOR FLOYD.
--- NOTE | 2017-10-12 07:57 | NUR ---
felt checker Notes Received pt. in bed.A/O X 3.SUDHIR PICC LINE CDI AND PATENT.NPO STATUS FOR EGD TODAY.HOB ELEVATED .BED IN LOW POSITION.CALL LIGHT WITHIN REACH .WILL CONTINUE TO MONITOR FOR CHANGES.
[2017-10-12 08:00] VITALS: BP_SYST 111; BP_SYST 122; BP_DIAS 61; BP_DIAS 64
[2017-10-12] MEDS: methylPREDNISolone SOD SUCC 125 MG/2ML VIAL IV SCH ×2 (08:34→22:02)
[2017-10-12] MEDS: FERROUS SULFATE (325 MG) 325 MG/TAB TABLET GT SCH (08:34)
[2017-10-12] MEDS: DOCUSATE SODIUM LIQ 100 MG/10 ML UDC GT SCH (08:34)
[2017-10-12] MEDS: SIMETHICONE 80 MG TAB.CHEW GT SCH (08:35)
[2017-10-12] MEDS: BISACODYL (5 MG) 5 MG TABLET.DR GT SCH (08:35)
[2017-10-12] MEDS: PANTOPRAZOLE 40 MG/PACK PACK GT SCH (08:35)
[2017-10-12] MEDS: FOLIC ACID 1 MG TABLET PO SCH (08:35)
[2017-10-12] MEDS: ASPIRIN 81 MG TAB.CHEW PO SCH (08:36)
[2017-10-12] MEDS: METOPROLOL TARTRATE 25 MG TABLET PO SCH ×2 (08:42→22:00)
[2017-10-12 12:00] VITALS: BP_SYST 111; BP_SYST 116; BP_DIAS 61; BP_DIAS 69
[2017-10-12 14:19] LABS: BASOPHILS % (AUTO) 0.1 % (0.0-2.0); HEMATOCRIT 42 % (33-45); HEMOGLOBIN 13.4 g/dL (11.5-14.8); LYMPHOCYTES # (AUTO) 0.5 /CMM (0.8-4.8); LYMPHOCYTES % (AUTO) 2.8 % (20.0-44.0); MEAN CORPUSCULAR HEMOGLOBIN 28 PG (26.0-33.0); MEAN CORPUSCULAR HGB CONC 32 g/dl (31.0-36.0); MEAN CORPUSCULAR VOLUME 88 fL (82-100); MONOCYTES # (AUTO) 0.1 /CMM (0.1-1.30); MONOCYTES % (AUTO) 0.6 % (2.0-12.0); NEUTROPHILS # (AUTO) 18.2 /CMM (1.8-8.9); NEUTROPHILS % (AUTO) 96.5 % (43.0-81.0); PLATELET COUNT (AUTO) 331 /CMM (150-450); RDW COEFFICIENT OF VARIATION 17.3 (11.5-15.0); RED BLOOD CELL COUNT(AUTO) 4.78 MIL/uL (4.0-5.2); WHITE BLOOD COUNT (AUTO) 18.9 K/uL (4.3-11.0)
[2017-10-12 14:34] LABS: CALCIUM, SERUM 8.7 mg/dL (8.5-10.1); CREATININE 0.6 mg/dL (0.6-1.3); MAGNESIUM 2.1 mg/dL (1.8-2.4); PHOSPHORUS 3.1 mg/dL (2.5-4.9); POTASSIUM 4.2 mmol/L (3.5-5.1)
[2017-10-12 16:00] VITALS: BP 122/64
[2017-10-12] MEDS ORDERED: LIDOCAINE 2% 20 ML MDV TP ONE (17:00)
[2017-10-12] MEDS: RIVAROXABAN 10 MG TABLET PO SCH (18:17)
--- NOTE | 2017-10-12 18:23 | NUR ---
RECEIVED PT TRACH ON MECHANICAL VENTILATOR ON SETTINGS PER MD ORDER. PT HAS NO SOB/RESP DISTRESS. AIRWAY PATENT AND SECURE. VENT ALARMS SET. PT BREATH SOUNDS BILATERAL COARSE. SUCTIONED YELLOW, HUGHES THICK MODERATED AMOUNT OF SECRETIONS.
--- NOTE | 2017-10-12 19:28 | NUR ---
patient in stable condition.no s/s of distress.all needs attended.safety measures in place
--- NOTE | 2017-10-12 19:54 | NUR ---
PT RCVD ON VENT WITH NOTED SETTINGS. VENTS PLUGGED INTO RED OUTLET, VENT ALARM WORKING AND AUDIBLE. BREATHING TX GIVEN PER MD'S ORDERED. NO ADVERSE REACTION AT THIS TIME. SUCTIONED MODERATE AMOUNT OF PALE YELLOW THICK SECRETIONS. BILATERAL BS NOTED, NO RESPIRATORY DISTRESS NOTED AT THIS TIME. WILL CONTINUE TO MONITOR THE PT.
[2017-10-12 20:00] VITALS: BP 124/79
[2017-10-12] MEDS: ATORVASTATIN 10 MG TABLET PO SCH (22:00)
[2017-10-12] MEDS: LEVOFLOXACIN (500MG) 500 MG TABLET PO SCH (23:00)
[2017-10-13] VITALS: BP 114/68
--- NOTE | 2017-10-13 01:57 | NUR ---
TELE1/RADHIKA ZACARIAS GT WAS NOT GIVEN PER SEAT COVER CUTTERRADHIKA MILLAN PATIENT'S HR GOES TO 55. WILL CONTINUE TO MONITOR
[2017-10-13] MEDS: MORPHINE SULFATE INJ 4 MG/ML DISP.SYRIN IV PRN ×2 (03:22→13:27)
--- NOTE | 2017-10-13 03:33 | NUR ---
TELE1/RN PATIENT C/O "CHOKING SENSATION", RT TAVON, CHECKED TRACH.
[2017-10-13] MEDS: IPRATROPIUM NEB FS 0.5 MG/2.5 ML AMPUL.NEB NEB SCH ×5 (03:42→20:17)
[2017-10-13 04:00] VITALS: BP 116/67
[2017-10-13] MEDS: DILTIAZEM HCL 30 MG TABLET PO SCH ×4 (05:52→17:09)
[2017-10-13] MEDS: NUTREN PULMONARY 1,000 ML BAG GT PRN (05:52)
[2017-10-13] MEDS: ACETAMINOPHEN 325 MG TABLET PO PRN ×2 (06:42→10:25)
--- NOTE | 2017-10-13 06:47 | NUR ---
TELE1/RN C/O PAIN IN TRACH SITE, TYLENOL 650 MG PO WAS GIVEN. MORPHINE IS NOT DUE YET AT THIS TIME. RT MADE AWARE OF THE PAIN.
[2017-10-13 08:00] VITALS: BP 94/47
--- NOTE | 2017-10-13 08:00 | NUR ---
RN NOTES RECEIVED PATIENT IN THE BED ON VENT, BUT PATIENT ABLE TO MAKE NEEDS BY WRITING DOWN IN THE PAPER. SR-56, V/S TAKEN BP-94/49, R-16, PATIENT HAS NO RESPIRATORY DISTRESS, BEDBOUND, G-TUBE PLACEMENT AND RESIDUAL CHECKED ,NUTREN 45 ML/HR PATIENT TOLERATING FEEDING WELL, PATIENT INCONTINENT , USING DIAPER, NEEDS ATTENDED AND ANTICIPATED, ASSIST TURN AND REPOSITION Q 2 HR, CALL LIGHT WITHIN TO REACH, SAFETY PRECAUTION MAINTAINED ALL THE TIME.
[2017-10-13] MEDS: METOPROLOL TARTRATE 25 MG TABLET PO SCH ×2 (09:00→20:54)
[2017-10-13] MEDS: methylPREDNISolone SOD SUCC 125 MG/2ML VIAL IV SCH ×2 (10:23→20:53)
[2017-10-13] MEDS: SIMETHICONE 80 MG TAB.CHEW GT SCH (10:24)
[2017-10-13] MEDS: BISACODYL (5 MG) 5 MG TABLET.DR GT SCH (10:24)
[2017-10-13] MEDS: FERROUS SULFATE (325 MG) 325 MG/TAB TABLET GT SCH (10:24)
[2017-10-13] MEDS: DOCUSATE SODIUM LIQ 100 MG/10 ML UDC GT SCH (10:24)
[2017-10-13] MEDS: PANTOPRAZOLE 40 MG/PACK PACK GT SCH (10:24)
[2017-10-13] MEDS: ASPIRIN 81 MG TAB.CHEW PO SCH (10:24)
[2017-10-13] MEDS: FOLIC ACID 1 MG TABLET PO SCH (10:24)
--- NOTE | 2017-10-13 10:25 | NUR ---
RN NOTES ADMINISTERED TYLENOL 650 MG VIA G-TUBE PRN FOR GENERALIZED PAIN 5/10, V/S TAKEN BP-94/49, P-56, CALL LIGHT WITHIN TO REACH, CONTINUED MONITORING.
[2017-10-13 11:41] LABS: BASOPHILS # (AUTO) 0.2 /CMM (0.0-0.2); BASOPHILS % (AUTO) 0.9 % (0.0-2.0); HEMATOCRIT 38 % (33-45); HEMOGLOBIN 12.1 g/dL (11.5-14.8); LYMPHOCYTES # (AUTO) 0.9 /CMM (0.8-4.8); LYMPHOCYTES % (AUTO) 3.8 % (20.0-44.0); MEAN CORPUSCULAR HEMOGLOBIN 28 PG (26.0-33.0); MEAN CORPUSCULAR HGB CONC 32 g/dl (31.0-36.0); MEAN CORPUSCULAR VOLUME 87 fL (82-100); MONOCYTES # (AUTO) 0.8 /CMM (0.1-1.30); MONOCYTES % (AUTO) 3.4 % (2.0-12.0); NEUTROPHILS # (AUTO) 20.9 /CMM (1.8-8.9); NEUTROPHILS % (AUTO) 91.9 % (43.0-81.0); PLATELET COUNT (AUTO) 292 /CMM (150-450); RDW COEFFICIENT OF VARIATION 16.8 (11.5-15.0); WHITE BLOOD COUNT (AUTO) 22.7 K/uL (4.3-11.0)
[2017-10-13 12:00] VITALS: BP 121/57
[2017-10-13 12:02] LABS: CALCIUM, SERUM 8.6 mg/dL (8.5-10.1); CREATININE 0.7 mg/dL (0.6-1.3); MAGNESIUM 1.9 mg/dL (1.8-2.4); PHOSPHORUS 2.8 mg/dL (2.5-4.9); POTASSIUM 4.6 mmol/L (3.5-5.1)
--- NOTE | 2017-10-13 13:27 | NUR ---
RN NOTES ADMINISTERED MORPHINE 2 MG/ML IV PUSH GENERALIZED PAIN /10 PER PATIENT REQUEST, V/S TAKEN BP 121/57, P-61, FAMILY NEXT TO THE PATIENT, CALL LIGHT WITHIN TO REACH, CONTINUED MONITORING.
[2017-10-13] MEDS ORDERED: KETOROLAC TROMETHAMINE INJ 30 MG/ML VIAL IM PRN (13:30)
--- NOTE | 2017-10-13 14:40 | NUR ---
RN NOTES MEDICATION WERE ADMINISTERED FOR PAIN EFFECTIVE, NO ACUTE RESPIRATORY DISTRESS AT THIS TIME, SCHEDULED MEDICATION ADMINISTERED, V/S STABLE, CALL LIGHT WITHIN TO REACH, FAMILY NEXT TO THE BED. CONTINUED MONITORING.
[2017-10-13 16:00] VITALS: BP 103/59
[2017-10-13] MEDS: RIVAROXABAN 10 MG TABLET PO SCH (17:11)
[2017-10-13] MEDS: KETOROLAC TROMETHAMINE INJ 30 MG/ML VIAL IV PRN (17:13)
--- NOTE | 2017-10-13 17:14 | NUR ---
RN NOTES ADMINISTERED TORADOL 15 MG/ML IV PUSH GENERALIZED PAIN 7/10 PER PATIENT REQUEST, V/S TAKEN, BP- 103/59, P-83, ALSO ADMINISTERED SCHEDULED MEDICATION VIA G-TUBE, ASSIST TURN AND REPOSITION Q 2 HR, CALL LIGHT WITHIN TO REACH, CONTINUED MONITORING.
[2017-10-13] MEDS: LORAZEPAM INJ 2 MG/ML VIAL IV PRN (18:07)
--- NOTE | 2017-10-13 18:07 | NUR ---
RN NOTES ADMINISTERED ATIVAN 1 MG/ML IV PUSH FOR ANXIETY, PER PATIENT REQUEST, V/S TAKEN BP -122/63, P-88, CONTINUED MONITORING.
[2017-10-13] MEDS: Z GUARD REMEDY 2 OZ OINT TP PRN (18:18)
--- NOTE | 2017-10-13 18:47 | NUR ---
RN NOTES PATIENT IN THE BED, MEDICATION WERE ADMINISTERED FOR ANXIETY EFFECTIVE, NO ACUTE RESPIRATORY DISTRESS, V/S STABLE, IV ACCESS ON LEFT WRIST INTACT, G-TUBE FEEDING IN 45 ML/HR INTACT, NEEDS ATTENDED AND ANTICIPATED, ASSIST TURN AND REPOSITION Q 2 HR, COVERED WITH WARM BLANKET , PATIENT INCONTINENT APPLIED Z-GUARD. FAMILY NEXT TO THE BED. ENDORSED ONCOMING NURSE FOR FLOYD.
[2017-10-13 20:00] VITALS: BP 107/66
--- NOTE | 2017-10-13 20:17 | NUR ---
PT ON VENT. VENT PLUGGED INTO RED OUTLET, VENT ALARM TESTED FOUND AUDIBLE WITHIN LIMITS. BREATHING TX GIVEN PER MD'S ORDERED. NO ADVERSE REACTION AT THIS TIME. SUCTIONED PRN. NO RESPIRATORY DISTRESS NOTED AT THIS TIME. WILL CONTINUE TO MONITOR THE PT.
--- NOTE | 2017-10-13 22:30 | NUR ---
rn note received patient in the bed, asleep, easily awakened, no respiratory distress noted, so2 100%, g-tube feeding tolerates well at 45ml/hr nutren, left wrist 22 gauge notes, flushes well, no s/s of infiltration noted, bed in the low position, call light within reach, side rails up x 2, all belongings within reach, will continue to monitor patient Addendum: 10/13/17 at 2233 by KATLYN ESQUIVEL RN note for 1929
[2017-10-13] MEDS: ATORVASTATIN 10 MG TABLET PO SCH (22:46)
[2017-10-13] MEDS: LEVOFLOXACIN (500MG) 500 MG TABLET PO SCH (23:38)
[2017-10-14] VITALS (7 sets, daily range): BP systolic 11–113; BP diastolic 58–67
[2017-10-14] MEDS: IPRATROPIUM NEB FS 0.5 MG/2.5 ML AMPUL.NEB NEB SCH ×7 (00:25→23:30)
[2017-10-14] MEDS: DILTIAZEM HCL 30 MG TABLET PO SCH ×4 (01:09→17:24)
[2017-10-14] MEDS: MORPHINE SULFATE INJ 4 MG/ML DISP.SYRIN IV PRN ×3 (03:15→13:10)
--- NOTE | 2017-10-14 03:16 | NUR ---
rn note pain 10/, requested pain med, neck pain, uncomfortable, bp 126/70, pain med was administered
[2017-10-14] MEDS: NUTREN PULMONARY 1,000 ML BAG GT PRN (05:18)
--- NOTE | 2017-10-14 07:25 | NUR ---
telemetry rn initial notes Received patient in bed, awake, head of bed, elevated, no SOB or distress noted, on mechanical vent with 02 sat of 100%. on tele monitor SB heart rate of 55. No complaint of pain or discomfort noted. patient is able to mouth words, for recio insertion due to patient is retaining urine, ordered obtained by night RN. On GT feeding and tolerated well, with no residual noted. per night nurse noted partial thickness loss on the sacral area and informed responsible constitution party and made aware. IV intact and patent. Kept patient clean and comfortable in bed, call light with in patient reach, will continue to monitor accordingly.
--- NOTE | 2017-10-14 07:31 | NUR ---
RN NOTE 1 DIAPER CHANGE DURING MY SHIFT, BLADDER SCAN SHOWS 636ML, CALLED DR KWON, ORDERED JONES CATHETER, PLACED AN ORDER AND ENDORSED TO AM NURSE NICK, SHIFT FOR JONES CATH INSERTION, NOTIFIED ABOUT WBC 22.7, MD WAS ALREADY AWARE, NO NEW ORDERS GIVEN AT THIS MOMENT, NO RESPIRATORY DISTRESS NOTED, PATIENT IS ALERT/ORIENTED, PAIN IS WELL CONTROLLED WITH PAIN MANAGEMENT, ALL SAFETY MEASURES TAKEN, BED IN THE LOW POSITION, CALL LIGHT WITHIN REACH, ENDORSED TO AM NURSE
[2017-10-14 07:39] LABS: BASOPHILS % (AUTO) 0.1 % (0.0-2.0); HEMATOCRIT 38 % (33-45); HEMOGLOBIN 12.4 g/dL (11.5-14.8); LYMPHOCYTES # (AUTO) 0.9 /CMM (0.8-4.8); LYMPHOCYTES % (AUTO) 4.1 % (20.0-44.0); MEAN CORPUSCULAR HEMOGLOBIN 28 PG (26.0-33.0); MEAN CORPUSCULAR HGB CONC 33 g/dl (31.0-36.0); MEAN CORPUSCULAR VOLUME 87 fL (82-100); MONOCYTES # (AUTO) 1.2 /CMM (0.1-1.30); MONOCYTES % (AUTO) 5.3 % (2.0-12.0); NEUTROPHILS # (AUTO) 21.1 /CMM (1.8-8.9); NEUTROPHILS % (AUTO) 90.5 % (43.0-81.0); PLATELET COUNT (AUTO) 287 /CMM (150-450); RDW COEFFICIENT OF VARIATION 16.9 (11.5-15.0); RED BLOOD CELL COUNT(AUTO) 4.37 MIL/uL (4.0-5.2); WHITE BLOOD COUNT (AUTO) 23.4 K/uL (4.3-11.0)
[2017-10-14 07:51] LABS: CALCIUM, SERUM 8.4 mg/dL (8.5-10.1); CREATININE 0.5 mg/dL (0.6-1.3); POTASSIUM 4.9 mmol/L (3.5-5.1)
[2017-10-14] MEDS: BISACODYL (5 MG) 5 MG TABLET.DR GT SCH (08:28)
[2017-10-14] MEDS: methylPREDNISolone SOD SUCC 125 MG/2ML VIAL IV SCH ×2 (08:28→21:27)
[2017-10-14] MEDS: FERROUS SULFATE (325 MG) 325 MG/TAB TABLET GT SCH (08:28)
[2017-10-14] MEDS: DOCUSATE SODIUM LIQ 100 MG/10 ML UDC GT SCH (08:28)
[2017-10-14] MEDS: ASPIRIN 81 MG TAB.CHEW PO SCH (08:29)
[2017-10-14] MEDS: SIMETHICONE 80 MG TAB.CHEW GT SCH (08:29)
[2017-10-14] MEDS: METOPROLOL TARTRATE 25 MG TABLET PO SCH ×2 (08:29→21:00)
[2017-10-14] MEDS: FOLIC ACID 1 MG TABLET PO SCH (08:29)
[2017-10-14] MEDS: PANTOPRAZOLE 40 MG/PACK PACK GT SCH (08:29)
[2017-10-14 09:24] LABS: LYMPHOCYTES % (MANUAL) 7 % (16-48); MONOCYTES % (MANUAL) 8 % (0-11.0); NEUTROPHILS % (MANUAL) 85 (42-76)
--- NOTE | 2017-10-14 10:17 | NUR ---
TEL,NURSE, office left message re; consultation as ordered
--- NOTE | 2017-10-14 13:33 | NUR ---
WOUND CARE CONSULT: PT SEEN FOR RT LOWER BUTTOCK SKIN TEAR. PT ABLE TO ASSIST WITH TURNING AND REPOSITIONING IN BED. PT ON COMFORT GEL MATTRESS. CURRENT TAMAR SCORE IS 14. RECOMMENDATIONS MADE FOR SKIN PROTECTION AND WOUND CARE. DISCUSSED WITH NURSING STAFF. WILL SEE PRN. LAU IN AGREEMENT WITH PLAN OF CARE. Addendum: 10/14/17 at 1334 by CORY CHOI WNDNU Amended: Links added.
[2017-10-14] MEDS: BACITRACIN/POLYMYXIN B 15 GM TUBE TP SCH (17:23)
[2017-10-14] MEDS: RIVAROXABAN 10 MG TABLET PO SCH (17:25)
[2017-10-14] MEDS: LORAZEPAM INJ 2 MG/ML VIAL IV PRN (17:25)
--- NOTE | 2017-10-14 19:24 | NUR ---
manager telecom closing notes All needs provided, attended, and anticipated, kept patient clean and comfortable in bed, call light with in patient reach, endorsed to next shift RN to continue care.
--- NOTE | 2017-10-14 19:25 | NUR ---
SAMPLE CARRIER NOTES, RECEIVED PATIENT IN BED, IN VENT SETTINGS, NO S/S OF SOB OR ACUTE DISTRESS NOTES AT THIS TIME, GTF RUNNING WELL AND PATIENT TOLERATED WELL, LEFT WRIST IV SITE INTACT AND PATENT, NOTED DRY AND CLEAN AT THIS TIME, FAMILY AT BEDSIDE, BED LOCKED AND IN LOWEST POSITION, CALL LIGHT W/I REACH, WILL CONTINUE TO MONITOR CLOSELY.
[2017-10-14] MEDS: ATORVASTATIN 10 MG TABLET PO SCH (21:27)
[2017-10-14] MEDS: LEVOFLOXACIN (500MG) 500 MG TABLET PO SCH (23:23)
[2017-10-15] MEDS: DILTIAZEM HCL 30 MG TABLET PO SCH ×4 (00:10→17:23)
[2017-10-15 00:22] VITALS: BP 122/68
[2017-10-15] MEDS: IPRATROPIUM NEB FS 0.5 MG/2.5 ML AMPUL.NEB NEB SCH ×7 (00:34→23:36)
[2017-10-15 04:00] VITALS: BP 115/63
[2017-10-15] MEDS: NUTREN PULMONARY 1,000 ML BAG GT PRN (05:37)
[2017-10-15] MEDS: KETOROLAC TROMETHAMINE INJ 30 MG/ML VIAL IV PRN (06:06)
--- NOTE | 2017-10-15 07:00 | NUR ---
CHEMICAL PLANT TECHNICAL DIRECTOR CLOSING NOTES, PATIENT IN BED AWAKE, ALERT AND ORIENTED, PAIN MEDICATION PROVIDED EARLIER, ON VENT SETTINGS, NO S/S OF SOB OR ACUTE DISTRESS NOTED, SATURATION @100%, KEPT DRY AND CLEAN, AFEBRILE AT THIS TIME, GTF INFUSING WELL AND PATIENT TOLERATED WELL, IV SITE IN LEFT WRIST, INTACT AND PATENT, BED IN LOWEST POSITION, REPOSITION PROVIDED Q2HRS AND PRN FOR COMFORT, CALL LIGHT W/I REACH, WILL ENDORSE COBNTINUITY OF CARE TO NEXT NURSE.
--- NOTE | 2017-10-15 07:30 | NUR ---
RN NOTES RECEIVED PT FROM BUSINESS SERVICES SALES REPRESENTATIVE, A&0X2-3 ABLE TO MOUTH OUT WORDS AND MAKE NEEDS KNOWN. CHRONIC VENT/TRACH DEPENDENT TOLERATING VENT SETTINGS NO SOB OR DISTRESS NOTED. AFLUTTER ON THE TELE HENRY HR 86. L WRIST 22G IV SITE INTACT NO IVF. BED LOCKED AND IN LOWEST POSITION, CALL LIGHT WITHIN REACH, WILL CONT TO HENRY.
[2017-10-15 08:00] VITALS: BP 122/68
[2017-10-15] MEDS: ACETAMINOPHEN 325 MG TABLET PO PRN (08:31)
[2017-10-15] MEDS: DOCUSATE SODIUM LIQ 100 MG/10 ML UDC GT SCH (08:32)
[2017-10-15] MEDS: FOLIC ACID 1 MG TABLET PO SCH (08:32)
[2017-10-15] MEDS: methylPREDNISolone SOD SUCC 125 MG/2ML VIAL IV SCH ×2 (08:32→21:35)
[2017-10-15] MEDS: FERROUS SULFATE (325 MG) 325 MG/TAB TABLET GT SCH (08:32)
[2017-10-15] MEDS: SIMETHICONE 80 MG TAB.CHEW GT SCH (08:32)
[2017-10-15] MEDS: PANTOPRAZOLE 40 MG/PACK PACK GT SCH (08:33)
[2017-10-15] MEDS: BISACODYL (5 MG) 5 MG TABLET.DR GT SCH (08:33)
[2017-10-15] MEDS: ASPIRIN 81 MG TAB.CHEW PO SCH (08:33)
[2017-10-15] MEDS: METOPROLOL TARTRATE 25 MG TABLET PO SCH ×2 (08:33→21:39)
[2017-10-15] MEDS: BACITRACIN/POLYMYXIN B 15 GM TUBE TP SCH (08:34)
[2017-10-15 12:00] VITALS: BP 116/65
[2017-10-15] MEDS: LORAZEPAM INJ 2 MG/ML VIAL IV PRN (13:27)
[2017-10-15 16:00] VITALS: BP 108/54
[2017-10-15] MEDS: RIVAROXABAN 10 MG TABLET PO SCH (17:23)
--- NOTE | 2017-10-15 18:38 | NUR ---
RN NOTES PT REMAINED IN STABLE CONDITION THROUGHOUT THE SHIFT, NO SIGNIFICANT CHANGES NOTED, ALL NEEDS MET, AT BEDSIDE. WILL ENDORSE TO ONCOMING SHIFT.
[2017-10-15] MEDS: MORPHINE SULFATE INJ 4 MG/ML DISP.SYRIN IV PRN ×2 (19:34→23:16)
--- NOTE | 2017-10-15 19:44 | NUR ---
RCVD PT ON VENT WITH NOTED SETTINGS. PT ALERT AND AWAKE, VENT PLUGGED INTO RED OUTLET, VENT ALARM WORKING AND AUDIBLE. BREATHING TX GIVEN PER MD'S ORDERED. NO ADVERSE REACTION AT THIS TIME. SUCTIONED MODERATE AMOUNT OF PALE YELLOW THICK SECRETIONS. BILATERAL BS NOTED, NO RESPIRATORY DISTRESS NOTED AT THIS TIME. WILL CONTINUE TO MONITOR THE PT.
[2017-10-15 20:00] VITALS: BP 110/68
[2017-10-15] MEDS: ATORVASTATIN 10 MG TABLET PO SCH (21:35)
[2017-10-15] MEDS: LEVOFLOXACIN (500MG) 500 MG TABLET PO SCH (23:12)
[2017-10-16] VITALS: BP 100/59
[2017-10-16] MEDS: KETOROLAC TROMETHAMINE INJ 30 MG/ML VIAL IV PRN ×2 (02:31→10:40)
[2017-10-16] MEDS: IPRATROPIUM NEB FS 0.5 MG/2.5 ML AMPUL.NEB NEB SCH ×4 (03:30→15:15)
[2017-10-16 04:00] VITALS: BP 102/61
[2017-10-16] MEDS: NUTREN PULMONARY 1,000 ML BAG GT PRN (05:35)
[2017-10-16] MEDS: DILTIAZEM HCL 30 MG TABLET PO SCH ×3 (06:00→12:36)
--- NOTE | 2017-10-16 06:40 | NUR ---
BARREL SCRAPER NOTES, PATIENT AWAKE, ALERT AND ORIENTED, C/O PAIN/ MEDICATION FOR PAIN ADMINISTERED, ON VENT SETTINGS, NO SOB OR ACUTE DISTRESS NOTED AT THIS TIME, LEFT PIV LINE INTACT AND PATENT, GT IN PLACE FEEDING INFUSING WELL AND PATIENT TOLERATED WELL, HOB ELEVATED AT ALL TIMES, F/C DRAINING DARK YELLOW URINE BY GRAVITY, BED LOCKED AND IN LOWEST POSITION, CALL LIGHT W/I REACH, WILL ENDORSE CONTINUITY OF CARE TO NEXT SHIFT NURSE.
[2017-10-16] MEDS: MORPHINE SULFATE INJ 4 MG/ML DISP.SYRIN IV PRN ×2 (06:44→14:34)
--- NOTE | 2017-10-16 07:30 | NUR ---
RN OPENING/TELE NOTES RECEIVED PT. IN BED A&OX3. PT. HAS A TRACHEOSTOMY, PORTEX 8, TRACH SETTINGS AC 16, TOTAL VOLUME 400, AND FIO2 50%. BREATHING UNLABORED, AND EVENLY ON OXYGEN. NO S/S OF ACUTE DISTRESS. IV ACCESS ON LEFT WRIST SALINE LOCKED. PT. HAS G TUBE FEEDING RUNNING AT 45 ML/HR. BED IS IN LOWEST, AND LOCKED POSITION, 2 SIDE RAILS UP, AND INSTRUCTED PT. TO USE CALL LIGHT FOR ASSISTANCE. ALL NEEDS MET. WILL CONTINUE TO ASSESS AND MONITOR.
[2017-10-16 08:00] VITALS: BP 113/75
[2017-10-16] MEDS: BISACODYL (5 MG) 5 MG TABLET.DR GT SCH (09:00)
[2017-10-16] MEDS: DOCUSATE SODIUM LIQ 100 MG/10 ML UDC GT SCH (10:00)
[2017-10-16] MEDS: ASPIRIN 81 MG TAB.CHEW PO SCH (10:01)
[2017-10-16] MEDS: FERROUS SULFATE (325 MG) 325 MG/TAB TABLET GT SCH (10:01)
[2017-10-16] MEDS: PANTOPRAZOLE 40 MG/PACK PACK GT SCH (10:01)
[2017-10-16] MEDS: FOLIC ACID 1 MG TABLET PO SCH (10:02)
[2017-10-16] MEDS: METOPROLOL TARTRATE 25 MG TABLET PO SCH (10:02)
[2017-10-16] MEDS: SIMETHICONE 80 MG TAB.CHEW GT SCH (10:02)
[2017-10-16] MEDS: BACITRACIN/POLYMYXIN B 15 GM TUBE TP SCH (10:03)
[2017-10-16] MEDS: methylPREDNISolone SOD SUCC 125 MG/2ML VIAL IV SCH (10:03)
--- NOTE | 2017-10-16 10:29 | NUR ---
RN NOTES WAS NOT ABLE TO ADMINISTER BISACODYL VIA G TUBE DUE TO MEDICATION CAN NOT BE CRUSHED.
[2017-10-16 11:55] LABS: HEMATOCRIT 45 % (33-45); HEMOGLOBIN 14.3 g/dL (11.5-14.8); LYMPHOCYTES # (AUTO) 1.2 /CMM (0.8-4.8); LYMPHOCYTES % (AUTO) 5.1 % (20.0-44.0); MEAN CORPUSCULAR HEMOGLOBIN 28 PG (26.0-33.0); MEAN CORPUSCULAR HGB CONC 32 g/dl (31.0-36.0); MEAN CORPUSCULAR VOLUME 87 fL (82-100); MONOCYTES # (AUTO) 0.5 /CMM (0.1-1.30); MONOCYTES % (AUTO) 2.2 % (2.0-12.0); NEUTROPHILS # (AUTO) 21.5 /CMM (1.8-8.9); NEUTROPHILS % (AUTO) 92.7 % (43.0-81.0); PLATELET COUNT (AUTO) 341 /CMM (150-450); RDW COEFFICIENT OF VARIATION 17.9 (11.5-15.0); RED BLOOD CELL COUNT(AUTO) 5.09 MIL/uL (4.0-5.2); WHITE BLOOD COUNT (AUTO) 23.2 K/uL (4.3-11.0)
[2017-10-16 12:00] VITALS: BP 134/80
[2017-10-16 12:14] LABS: BILIRUBIN,TOTAL 0.8 mg/dL (0.2-1.0); CALCIUM, SERUM 9.2 mg/dL (8.5-10.1); CREATININE 0.8 mg/dL (0.6-1.3); TOTAL PROTEIN, SERUM 6.6 g/dL (6.4-8.2)
[2017-10-16 12:56] LABS: LYMPHOCYTES % (MANUAL) 1 % (16-48); MONOCYTES % (MANUAL) 1 % (0-11.0); NEUTROPHILS % (MANUAL) 98 (42-76)
[2017-10-16 16:00] VITALS: BP 101/67
[2017-10-16] MEDS: RIVAROXABAN 10 MG TABLET PO SCH (17:48)
[2017-10-16] MEDS: LORAZEPAM INJ 2 MG/ML VIAL IV PRN (17:50)
--- NOTE | 2017-10-16 18:45 | NUR ---
RN NOTES REPORT WAS GIVEN VIA PHONE TO MANGO GARRIDO AT [facility]. ALL QUESTIONS ANSWERED.
--- NOTE | 2017-10-16 19:30 | NUR ---
THORACIC MEDICINE SPECIALIST REPORT WAS GIVEN TO NURSE THAT PT. HAD A SWALLOW EVALUATION AND THAT SHE CAN HAVE ICE CHIPS TOLERATED FOR ORAL GRATIFICATION. REPORT ALSO WAS GIVEN THAT PT. HAD A LAST BOWEL MOVEMENT 10/12, 4 DAYS AGO, AND THAT MILK OF MAGNESIUM WAS GIVEN TO PT. TODAY.
--- NOTE | 2017-10-16 20:11 | NUR ---
WINDOWS SUPPORT ENGINEER NOTES PT. LEFT IN MEDICALLY STABLE CONDITION BY AMBULANCE TO [facility]. PT.'S , AND GRANDDAUGHTER WAS ALONG SIDE PT. DISCHARGE INSTRUCTIONS, WITH EDUCATION WAS GIVEN, AND PT. VERBALIZED UNDERSTANDING. BELONGINGS LIST CHECKED, AND SIGNED. ID BAND, AND IV WAS REMOVED WITHOUT COMPLICATIONS. PT. LEFT WITH A TRACHEOSTOMY INTACT, PEG TUBE ON LEFT UPPER ABDOMINAL QUADRANT INTACT AND PATENT, AND A JONES CATHETER, REMOVED 200 CC OF CLEAR, AND YELLOW URINE. DISCHARGE REPORT GIVEN TO RN WITH EMT.
[2017-10-17] MEDS ORDERED: methylPREDNISolone SOD SUCC 40 MG/ML VIAL IV SCH (09:00)
== END 2017-10-16 21:01 | DRG 207 ==
LOC: ER 00:10 → TELE-TD 02:23 → TELE1 10-05 11:09 → TELE-TD 10-07 15:22 → TELE1 10-08 10:13
PROVIDERS: ADMIT Internal Medicine; ATTEND Internal Medicine
PROC: 5A1955Z Respiratory Ventilation, Greater than 96 Consecutive Hours (ICD-10-PCS; principal; 2017-10-02)
DX: J96.21 Acute and chronic respiratory failure with hypoxia (principal); N17.0 Acute kidney failure with tubular necrosis; E44.0 Moderate protein-calorie malnutrition; D68.59 Other primary thrombophilia; I48.91 Unspecified atrial fibrillation; I48.92 Unspecified atrial flutter; I50.9 Heart failure, unspecified; I11.0 Hypertensive heart disease with heart failure; J44.1 Chronic obstructive pulmonary disease with (acute) exacerbation; Z99.11 Dependence on respirator [ventilator] status; J93.83 Other pneumothorax; E78.5 Hyperlipidemia, unspecified; Z93.0 Tracheostomy status; Z87.891 Personal history of nicotine dependence; Z79.01 Long term (current) use of anticoagulants; K21.9 Gastro-esophageal reflux disease without esophagitis; J96.22 Acute and chronic respiratory failure with hypercapnia; I25.10 Atherosclerotic heart disease of native coronary artery without angina pectoris; Z93.1 Gastrostomy status; D64.9 Anemia, unspecified; R13.10 Dysphagia, unspecified; F41.9 Anxiety disorder, unspecified; D72.829 Elevated white blood cell count, unspecified; M41.9 Scoliosis, unspecified; S31.811A Laceration without foreign body of right buttock, initial encounter; X58.XXXA Exposure to other specified factors, initial encounter; Y93.89 Activity, other specified; T38.0X5A Adverse effect of glucocorticoids and synthetic analogues, initial encounter; Z90.2 Acquired absence of lung [part of]; Z68.21 Body mass index [BMI] 21.0-21.9, adult
CPT/HCPCS: 31720; 36415; 36600; 71045-TC; 71250-TC; 80048-TC; 80053-TC; 80076-TC; 81000-TC; 82803-TC; 82962-TC; 83605-TC; 83735-TC; 83880; 84100-TC; 84484-TC; 85025-TC; 85730-TC; 87040-TC; 87081-TC; 87086-TC; 92611-TC; 94002-TC; 94003-TC; 94760-TC; 94762-TC; 99082-TC; A4216; A4606; A4623; A6403; A7526; J1650; J1885; J1956; J2060; J2270; J2405; J2930; J3490; J7030; J7040; J7060; Z7610

== ENCOUNTER 2017-10-18 13:56 | Inpatient (IN) | payer OTHER, MEDICAID ==
[2017-10-18] VITALS (13 sets, daily range): BP systolic 90–132; BP diastolic 50–76
[~2017-10-18] VITALS: Ht 162.6 cm; Wt 48.1 kg
[~2017-10-18 13:56] MED LIST changes: -LEVO750T21 PO
[2017-10-18] MEDS ORDERED: IV NS 0.9% 500 ML BAG IV ONE ×2 (14:00→15:00)
--- NOTE | 2017-10-18 14:00 | NUR ---
BBRA FROM [facility],C/O RIGHT SIDED CHEST PAIN X 1 DAY. NAD NOTED. PT IS ALERT, NON VERBAL, BUT ABLE TO MOUTH WORDS. ON VENTILATOR. RT AT BEDSIDE. PENDING MD BOLANOS.
--- NOTE | 2017-10-18 14:01 | NUR ---
RT NOTE PT PLACED ON VENT PER MD ORDER. SETTINGS ENDORSED BY PARAMEDICS FROM PT FACE SHEET. AC 16 400 40% +5. PT HAS PORTEX [address]. ALARMS SET PER PROTOCOL AND AUDIBLE. VENT PLUGGED IN TO RED OUTLET. AMBU BAG AT BED SIDE. NO DISTRESS NOTED. WILL CONTINUE TO MONITOR. Addendum: 10/18/17 at 1403 by SOFY CORONADO RT Amended: Links added.
[2017-10-18] MEDS ORDERED: DOCU50LI GT (14:27)
[2017-10-18] MEDS ORDERED: METO25TA20 GT (14:27)
[2017-10-18] MEDS ORDERED: LACT-96 GT (14:27)
[2017-10-18] MEDS ORDERED: BISA10SU8 RC (14:27)
[2017-10-18] MEDS ORDERED: NA P133E RC (14:27)
[2017-10-18] MEDS ORDERED: MELA3TAB GT (14:27)
[2017-10-18] MEDS ORDERED: OMEP20CA10 GT (14:27)
[2017-10-18] MEDS ORDERED: MAGN400O6 GT (14:27)
[2017-10-18] MEDS ORDERED: ASCO500T9 PO (14:27)
[2017-10-18] MEDS ORDERED: MULT-447 GT (14:27)
[2017-10-18] MEDS ORDERED: ENOX30DI SQ (14:27)
[2017-10-18] MEDS ORDERED: LEVA1.2528 IH (14:34)
[2017-10-18 14:38] LABS: CALCIUM, SERUM 8.7 mg/dL (8.5-10.1); CREATININE 0.7 mg/dL (0.6-1.3)
[2017-10-18 14:39] LABS: BASOPHILS % (AUTO) 0.1 % (0.0-2.0); EOSINOPHILS # (AUTO) 0.2 /CMM (0.0-0.7); EOSINOPHILS % (AUTO) 0.6 % (0.0-6.0); HEMATOCRIT 41 % (33-45); LYMPHOCYTES # (AUTO) 3.2 /CMM (0.8-4.8); LYMPHOCYTES % (AUTO) 9.4 % (20.0-44.0); MEAN CORPUSCULAR HEMOGLOBIN 28 PG (26.0-33.0); MEAN CORPUSCULAR HGB CONC 32 g/dl (31.0-36.0); MEAN CORPUSCULAR VOLUME 88 fL (82-100); MONOCYTES # (AUTO) 0.7 /CMM (0.1-1.30); MONOCYTES % (AUTO) 1.9 % (2.0-12.0); NEUTROPHILS # (AUTO) 29.5 /CMM (1.8-8.9); PLATELET COUNT (AUTO) 307 /CMM (150-450); POTASSIUM 5.5 mmol/L (3.5-5.1); RDW COEFFICIENT OF VARIATION 19.1 (11.5-15.0); RED BLOOD CELL COUNT(AUTO) 4.63 MIL/uL (4.0-5.2)
[2017-10-18 14:43] LABS: TROPONIN I 0.052 ng/mL (0.00-0.056)
[2017-10-18 14:45] LABS: WHITE BLOOD COUNT (AUTO) 33.5 K/uL (4.3-11.0)
[2017-10-18] MEDS ORDERED: IOHEXOL-350 100 ML VIAL IV ONE (14:52)
[2017-10-18] MEDS ORDERED: IV NS 0.9% 500 ML IV ONE (14:52)
[2017-10-18] MEDS ORDERED: CT SWABBABLE VALVE TRANS SET 1 EA INFUS.SET MC ONE (14:55)
[2017-10-18] MEDS ORDERED: PIPERACILLIN /TAZOBACTAM 3.375 G in IV D5W 50 ML IV ONE (15:00)
[2017-10-18] MEDS ORDERED: VANCOMYCIN 1 GM in IV D5W 250 ML IV ONE (15:00)
[2017-10-18 15:10] LABS: INR 0.93 (0.85-1.15)
--- NOTE | 2017-10-18 15:10 | NUR ---
pt to ct
[2017-10-18 15:18] LABS: ALBUMIN 2.6 g/dL (3.4-5.0); BILIRUBIN,DIRECT 0.1 mg/dL (0.0-0.2); BILIRUBIN,TOTAL 0.6 mg/dL (0.2-1.0); TOTAL PROTEIN, SERUM 5.8 g/dL (6.4-8.2)
[2017-10-18 15:43] LABS: NEUTROPHILS % (MANUAL) 90 (42-76)
[2017-10-18 15:44] LABS: LYMPHOCYTES % (MANUAL) 9 % (16-48); MONOCYTES % (MANUAL) 1 % (0-11.0)
[2017-10-18 16:06] LABS: ABG BASE EXCESS 6.8 mmol/L; ABG OXYGEN SATURATION 98.7 % (92.0-98.5); ABG PCO2 41.8 mmHg (35.0-45.0); ABG PH 7.486 (7.350-7.450); ABG PO2 175.8 mmHg (75.0-100.0); AaDO2 61.3 mmHg; COHb 0.3 % (0.5-1.5); MetHb 0.4 % (0.0-1.5); PEEP,BG 5 cm H2O; SITE, ABG Right Radial; VENT MODE, BG AC 16 400 40% +5; VT, ABG 400 mL
[2017-10-18] MEDS ORDERED: ENOXAPARIN SODIUM 60 MG/0.6 ML DISP.SYRIN SQ ONE (16:46)
[2017-10-18] MEDS: ENOXAPARIN SODIUM 60 MG/0.6 ML DISP.SYRIN SQ SCH (16:57)
--- NOTE | 2017-10-18 17:08 | NUR ---
REPORT GIVEN TO CONRADO GARRIDO FOR FLOYD
--- NOTE | 2017-10-18 17:50 | NUR ---
MANPOWER DEVELOPMENT SPECIALIST MANAGER RECEIVED PATENT FROM THE ER. PATIENT IS ALERT AND ORIENTED X 4. NO ACUTE DISTRESS. ABLE TO VERBALIZE NEEDS. VENT SETTINGS REVIEWED AND VERIFIED. AFEBRILE. SINUS TACH ON MONITOR. TURNED AND REPOSITIONED FOR COMFORT AND WOUND PREVENTION. WILL CONTINUE TO MONITOR AND PROVIDE CARE.
[2017-10-18] MEDS ORDERED: ALTEPLASE 100 MG in WATER FOR INJECTION,STERILE 100 ML IV ONE (18:00)
--- NOTE | 2017-10-18 18:10 | NUR ---
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 NO ACTIVASE PER DR CHANDLER.
[2017-10-18] MEDS ORDERED: ZOLPIDEM TARTRATE 5 MG TABLET PO PRN (18:30)
[2017-10-18] MEDS ORDERED: ONDANSETRON HCL/PF 4 MG/2 ML VIAL IVP PRN (18:30)
[2017-10-18] MEDS ORDERED: ACETAMINOPHEN 325 MG TABLET PO PRN (18:30)
[2017-10-18] MEDS ORDERED: MAGNESIUM HYDROXIDE 30 ML UDC PO PRN (18:30)
[2017-10-18] MEDS ORDERED: HYDROCODONE/APAP 5/325MG 1 EACH TABLET PO PRN (18:30)
[2017-10-18] MEDS ORDERED: MAG HYDROX/AL HYDROX/SIMETH 30 ML UDC PO PRN (18:30)
[2017-10-18] MEDS ORDERED: FEE PK DOSING 1 MIN EA MC ONE (18:36)
--- NOTE | 2017-10-18 19:00 | NUR ---
PATHOLOGY TECH NOTES Received patient awake,alert on the ventilator via tracheostomy on AC mode.Stable,follows commands,seems coherent and appropriate,no SOB,breathing regular and non labored.Moves all extremities ,weaker on lower extremities. GT tube clamped,patent., PICC line via DEVENDRA ,comfort care done,needs attended. 2030 Ultrasound of abdomen being done at the bedside.
--- NOTE | 2017-10-18 19:18 | NUR ---
PT REC'D TRACH PORTEX 8 ON NOTED [facility] VENT SETTINGS CHARTED. PT IS COMFORTABLE AND NO RESP DISTRESS NOTED. WIRE BORDER ASSEMBLER CUFF PRESSURE NOTED. ALARMS ARE SET AND AUDIBLE. AMBU BAG IS BEDSIDE. VENT IS PLUGGED INTO RED OUTLET. WILL CONTINUE TO MONITOR Addendum: 10/18/17 at 2013 by LATRICE PAEZ RT Amended: Links added.
[2017-10-18] MEDS: METRONIDAZOLE 500 MG TABLET PO SCH (22:10)
[2017-10-18] MEDS: ZOSYN IVPB 3.375 G in IV D5W 50ml IV SCH (22:10)
[2017-10-18] MEDS: IV NS 0.9% 1,000 ML IV PRN (22:26)
[2017-10-18] MEDS: VANCOMYCIN 0.75 GM in IV NS 0.9% 250 ML IV SCH (23:55)
[2017-10-19] VITALS (38 sets, daily range): BP systolic 83–118; BP diastolic 47–91
--- NOTE | 2017-10-19 | NUR ---
TILTROTOR CREW CHIEF NOTES Remains stable,awake,alert,not in distress.Skin care done,patient incontinent of urine.Noted urine to be foul smelly,perineal area excoriated and sacral area with diffuse area of MASD with some open areas . Applied Z Guard ointment all over perineal area.
[2017-10-19] MEDS: ZOSYN IVPB 3.375 G in IV D5W 50ml IV SCH ×4 (03:50→23:01)
[2017-10-19] MEDS: Z GUARD REMEDY 2 OZ OINT TP PRN (03:51)
[2017-10-19] MEDS: METRONIDAZOLE 500 MG TABLET PO SCH ×3 (04:41→21:22)
[2017-10-19] MEDS: ENOXAPARIN SODIUM 60 MG/0.6 ML DISP.SYRIN SQ SCH (04:42)
[2017-10-19 05:03] LABS: EOSINOPHILS # (AUTO) 0.2 /CMM (0.0-0.7); EOSINOPHILS % (AUTO) 1.2 % (0.0-6.0); HEMATOCRIT 32 % (33-45); HEMOGLOBIN 10.2 g/dL (11.5-14.8); LYMPHOCYTES # (AUTO) 1.6 /CMM (0.8-4.8); LYMPHOCYTES % (AUTO) 8.4 % (20.0-44.0); MEAN CORPUSCULAR HEMOGLOBIN 28 PG (26.0-33.0); MEAN CORPUSCULAR HGB CONC 32 g/dl (31.0-36.0); MEAN CORPUSCULAR VOLUME 88 fL (82-100); MONOCYTES # (AUTO) 0.1 /CMM (0.1-1.30); MONOCYTES % (AUTO) 0.7 % (2.0-12.0); NEUTROPHILS # (AUTO) 16.8 /CMM (1.8-8.9); NEUTROPHILS % (AUTO) 89.7 % (43.0-81.0); PLATELET COUNT (AUTO) 252 /CMM (150-450); RDW COEFFICIENT OF VARIATION 17.6 (11.5-15.0); WHITE BLOOD COUNT (AUTO) 18.7 K/uL (4.3-11.0)
[2017-10-19 05:17] LABS: ALBUMIN 2.2 g/dL (3.4-5.0); BILIRUBIN,DIRECT 0.2 mg/dL (0.0-0.2); BILIRUBIN,TOTAL 0.9 mg/dL (0.2-1.0); CALCIUM, SERUM 7.9 mg/dL (8.5-10.1); CREATININE 0.6 mg/dL (0.6-1.3); MAGNESIUM 1.9 mg/dL (1.8-2.4); PHOSPHORUS 2.4 mg/dL (2.5-4.9); POTASSIUM 4.3 mmol/L (3.5-5.1); TOTAL PROTEIN, SERUM 4.9 g/dL (6.4-8.2)
[2017-10-19 05:19] LABS: INR 1.01 (0.87-1.13)
[2017-10-19 05:35] LABS: CREATINE KINASE MB 1.5 ng/mL (0-3.6); PREALBUMIN 26.7 MG/DL (18.0-35.7); THYROID STIMULATING HORMONE 0.688 uIU/mL (0.358-3.74)
--- NOTE | 2017-10-19 07:00 | NUR ---
WHEEL ALIGNER NOTES Remains stable,asleep,not in distress,arousable,comfortable,denies any pain.Report given to Sreekanth GARRIDO.
--- NOTE | 2017-10-19 07:11 | NUR ---
DEPUTY DISTRICT CUSTOMS DIRECTOR RECEIVED PATIENT FROM THE PREVIOUS SHIFT. PATIENT IS IN BED. RESTING COMFORTABLY. NO ACUTE DISTRESS NOTED. VITAL SINGS STABLE. SINUS TACH ON MONITOR. VENT SETTINGS REVIEWED AND VERIFIED. TURNED AND REPOSITIONED FOR COMFORT AND WOUND PREVENTION. WILL CONTINUE TO MONITOR AND PROVIDE CARE.
[2017-10-19] MEDS ORDERED: RIVAROXABAN 10 MG TABLET PO SCH (07:30)
[2017-10-19] MEDS: VANCOMYCIN 0.75 GM in IV NS 0.9% 250 ML IV SCH (08:09)
[2017-10-19 08:38] LABS: LYMPHOCYTES % (MANUAL) 12 % (16-48); MONOCYTES % (MANUAL) 2 % (0-11.0); NEUTROPHILS % (MANUAL) 86 (42-76)
[2017-10-19] MEDS: IV NS 0.9% 1,000 ML IV PRN (11:19)
[2017-10-19] MEDS: FIBERSOURCE HN 1,000 ML BOTTLE GT PRN (11:20)
[2017-10-19] MEDS ORDERED: NEUTRA PHOS 1 POWD.PACKET NG ONE (11:30)
[2017-10-19] MEDS: NYSTATIN TOP POWDER 15 GM BOTTLE TP SCH ×2 (15:08→21:24)
--- NOTE | 2017-10-19 15:48 | NUR ---
SHUTDOWN PLANNER TRANSFERRED THE PATIENT TO GERMAN LEVEL OF CARE ON STABLE CONDITIONS.
--- NOTE | 2017-10-19 16:03 | NUR ---
GERMAN RN NOTES RECEIVED PATIENT FROM ICU FROM RN CONRADO, ON VENT SETTINGS ORDERED, SATURATED WELL, VITAL SIGNS STABLE. MADE COMFORTABLE, NO DISTRESS NOTED, NO CO OF PAIN, DAUGHTER AT BEDSIDE, WILL CONTINUE TO MONITOR.
[2017-10-19] MEDS: RIVAROXABAN 10 MG TABLET PO SCH (17:24)
--- NOTE | 2017-10-19 18:15 | NUR ---
RT END OF THE SHIFT REPORT PT. 67 Y OLD ALERT AND RESPONSIVE FEMALE REMAIN PORTEX # 8 AND ON VENT WITH NOTED SETTINGS, ALARMS ARE SET AND FUNCTIONAL. NO DISTRESS NOTED T/O SHIFT. B/S BILATERALLY RHONCHI. EQUAL CHEST RISE NOTED. SUX'D FOR MINIMUM AMT. YELLOWISH SECRETIONS, FIO2 TITRATED PER DR. MEEHAN TO 35 AND TRANSFERS TO GERMAN T/O SHIFT NO OTHER CHANGES AND CONTINUE FOR MONITOR AND CARE FOR PT. AMBU BAG REMAIN AT THE BEDSIDE. VENT PLUGGED INTO RED OUTLET. HME CHANGED, REPORT WILL PASS TO PM SHIFT. Addendum: 10/19/17 at 1816 by VAMSI GUNTER RT Amended: Links added.
--- NOTE | 2017-10-19 19:05 | NUR ---
GERMAN RN END NOTES PATIENT RESTING IN BED NO SIGNS OF DISTRESS, PATIENT AND FAMILY REQUESTING NORCO FOR PAIN, NOTED MEDICATION DC EARLIER TODAY, NOTIFIED DR MALLIKA PICHARDO TO GIVE, WILL ENDORSE TO AWS DEVELOPER.
--- NOTE | 2017-10-19 19:30 | NUR ---
GERMAN/RN NOTES: RECEIVED PT. IN BED W/ HOB ELEVATED ON MECHANICAL VENTILATOR W/ PRESCRIBED SETTING TOLERATING WELL. PT. IS A/O X 4. ABLE TO MOUTH WORDS. DENIES ANY C/O CHEST PAIN OR SOB AT THIS TIME. HAS A PICC LINE ON DEVENDRA W/ DRESSING INTACT AND PATENT W/ NO S/S OF INFECTION/INFILTRATION NOTED. HAS IVF OF NS AT 75 CC/HR TOLERATING WELL. HAS GTF INPLACE AND PATENT W/ NO RESIDUAL NOTED. ON TELE MONITOR W/ ATRIAL FLUTTER 86. CALL LIGHT W/ REACH. ALL NEEDS MEET. SUCTIONED PRN. WILL CONTINUE TO MONITOR.
[2017-10-19] MEDS: VANCOMYCIN 0.75 GM in IV D5W 250 ML IV SCH (21:20)
[2017-10-20] VITALS: BP 96/55
[2017-10-20] MEDS: IV NS 0.9% 1,000 ML IV PRN ×2 (03:24→16:40)
[2017-10-20 04:00] VITALS: BP 132/68
[2017-10-20] MEDS: ZOSYN IVPB 3.375 G in IV D5W 50ml IV SCH ×4 (04:42→22:12)
[2017-10-20] MEDS: METRONIDAZOLE 500 MG TABLET PO SCH ×3 (04:42→20:55)
[2017-10-20 06:39] LABS: BASOPHILS % (AUTO) 0.1 % (0.0-2.0); EOSINOPHILS # (AUTO) 0.2 /CMM (0.0-0.7); EOSINOPHILS % (AUTO) 1.5 % (0.0-6.0); HEMATOCRIT 29 % (33-45); HEMOGLOBIN 9.5 g/dL (11.5-14.8); LYMPHOCYTES # (AUTO) 1.3 /CMM (0.8-4.8); LYMPHOCYTES % (AUTO) 9.8 % (20.0-44.0); MEAN CORPUSCULAR HEMOGLOBIN 28 PG (26.0-33.0); MEAN CORPUSCULAR HGB CONC 33 g/dl (31.0-36.0); MEAN CORPUSCULAR VOLUME 87 fL (82-100); MONOCYTES # (AUTO) 0.5 /CMM (0.1-1.30); MONOCYTES % (AUTO) 3.8 % (2.0-12.0); NEUTROPHILS # (AUTO) 11.3 /CMM (1.8-8.9); NEUTROPHILS % (AUTO) 84.8 % (43.0-81.0); PLATELET COUNT (AUTO) 211 /CMM (150-450); RDW COEFFICIENT OF VARIATION 17.9 (11.5-15.0); RED BLOOD CELL COUNT(AUTO) 3.33 MIL/uL (4.0-5.2); WHITE BLOOD COUNT (AUTO) 13.3 K/uL (4.3-11.0)
--- NOTE | 2017-10-20 06:55 | NUR ---
GERMAN/RN NOTES: NO ACUTE CHANGES NOTED DURING THIS SHIFT. REPORT GIVEN TO AM NURSE TO FLOYD.
--- NOTE | 2017-10-20 07:10 | NUR ---
RN INITIAL NOTES: REC'D PT AWAKE ON BED, A/O X 4, NOT IN ANY DISTRESS, ABLE TO MAKE NEEDS KNOWN, MOUTHS WORDS. ON MV VIA TRACH, NO SOB. ON TELEMONITOR, A.FLUTTER W/ HR 75 BPM. HAS GT PATENT & INTACT, ON CONT TUBE FEEDING FIBERSOURCE X 40 CC/HR INFUSING WELL. HAS DEVENDRA PICC LINE, PATENT & INTACT W/ NO S/SX OF INFECTION/INFILTRATION NOTED, ON NS X 75 CC/HR INFUSING WELL. PROVIDED COMFORT & SAFETY MEASURES. BED KEPT LOW & IN LOCKED POS. CALL LIGHT PLACED W/IN REACH. WILL CONTINUE TO MONITOR & ATTEND PT NEEDS.
[2017-10-20 07:11] LABS: CALCIUM, SERUM 7.9 mg/dL (8.5-10.1); CREATININE 0.7 mg/dL (0.6-1.3); MAGNESIUM 1.8 mg/dL (1.8-2.4); POTASSIUM 4.3 mmol/L (3.5-5.1)
--- NOTE | 2017-10-20 07:27 | NUR ---
Awake and alert trach pt received on mechanical vent. Pt trach is secure. Vent is plugged into a red outlet, alarms are set and audible, and BVM is at bedside. Addendum: 10/20/17 at 0749 by ANIL SOTELO RT Amended: Links added.
[2017-10-20 08:00] VITALS: BP 99/55
[2017-10-20] MEDS: Z GUARD REMEDY 2 OZ OINT TP PRN (08:17)
[2017-10-20] MEDS: VANCOMYCIN 0.75 GM in IV D5W 250 ML IV SCH ×2 (08:17→20:55)
[2017-10-20] MEDS: NYSTATIN TOP POWDER 15 GM BOTTLE TP SCH ×2 (08:17→20:56)
[2017-10-20 12:00] VITALS: BP 101/62
[2017-10-20] MEDS: MUPIROCIN OINT 2% 22 GM TUBE TP SCH (13:00)
[2017-10-20 16:00] VITALS: BP 112/58
[2017-10-20] MEDS: RIVAROXABAN 10 MG TABLET PO SCH (16:48)
[2017-10-20] MEDS: FIBERSOURCE HN 1,000 ML BOTTLE GT PRN (17:41)
--- NOTE | 2017-10-20 18:35 | NUR ---
RN CLOSING NOTES: NO ACUTE CHANGES NOTED W/IN SHIFT. PT TOLERATED MV VIA TRACH, NO SOB. ON TELEMONITOR, STILL A.FLUTTER. GT KEPT PATENT & INTACT, TUBE FEEDING FIBERSOURCE X 40 CC/HR TOLERATED WELL. DEVENDRA PICC LINE, KEPT PATENT & INTACT W/ NO S/SX OF INFECTION/INFILTRATION NOTED, ON NS X 75 CC/HR INFUSING WELL. KEPT WELL RESTED. NEEDS ATTENDED. BED KEPT LOW & IN LOCKED POS. CALL LIGHT PLACED W/IN REACH. WILL ENDORSE TO PM RN FOR FLOYD. FAMILY AT BEDSIDE.
--- NOTE | 2017-10-20 19:30 | NUR ---
RN INITIAL NOTES, RECEIVED PATIENT IN BED, ALERT AND ORIENTED, ABLE TO LET NEEDS AND CONCERNS KNOW,FAMILY AT BEDSIDE AT THIS TIME, ON VENT SETTINGS, NO S/S OF SOB/ACUTE DISTRESS NOTED, WITH DEVENDRA PICC LINE INTACT AND PATENT, IVF RUNNING WELL AND PATIENT TOLERATED WELL, GTF INFUSING WELL AND PATIENT TOLERATED WELL, WITH ZERO RESIDUAL AT THIS TIME, HOB AT ALL TIMES, BED LOCKED AND IN LOWEST POSITION, CALL LIGHT W/I REACH, NOTED DRY AND CLEAN AT THIS TIME. WILL CONTINUE TO MONITOR CLOSELY.
[2017-10-20 20:00] VITALS: BP 98/57
[2017-10-20] MEDS: HYDROMORPHONE INJ 0.5 MG/0.5 ML SYRINGE IV PRN (23:44)
[2017-10-21] VITALS: BP 114/61
[2017-10-21] MEDS: MUPIROCIN OINT 2% 22 GM TUBE TP SCH ×2 (01:29→12:25)
[2017-10-21 04:00] VITALS: BP 106/55
[2017-10-21] MEDS: FIBERSOURCE HN 1,000 ML BOTTLE GT PRN (04:20)
[2017-10-21] MEDS: METRONIDAZOLE 500 MG TABLET PO SCH ×3 (04:28→20:54)
[2017-10-21] MEDS: ZOSYN IVPB 3.375 G in IV D5W 50ml IV SCH ×4 (04:28→22:49)
--- NOTE | 2017-10-21 06:50 | NUR ---
RN CLOSING NOTES, PATIENT IN BED, AWAKE ALERT AND ORIENTED, ON VENT SETTINGS, NO S/S OF SOB/ACUTE DISTRESS, SUCTIONING PROVIDED, PICC LINE IN DEVENDRA INTACT AND PATENT, IVF INFUSING WELL AND PATIENT TOLERATED WELL, GTF RUNNING WELL AND PATIENT TOLERATED WELL TO, NO RESIDUAL AT THIS TIME, KEPT DRY AND CLEAN, REPOSITION Q2HRSN AND PRN FOR COMFORT, HOB ELEVATED AT ALL TIMES FOR ASPIRATION PRECAUTIONS, BED LOCKED AND IN LOWEST POSITION, AUREA LIGHT W/I REACH, WILL ENDORSE TO NEXT SHIFT NURSE.
[2017-10-21 06:59] LABS: BASOPHILS % (AUTO) 0.3 % (0.0-2.0); EOSINOPHILS # (AUTO) 0.2 /CMM (0.0-0.7); EOSINOPHILS % (AUTO) 1.9 % (0.0-6.0); HEMATOCRIT 28 % (33-45); HEMOGLOBIN 9.1 g/dL (11.5-14.8); LYMPHOCYTES # (AUTO) 1.2 /CMM (0.8-4.8); LYMPHOCYTES % (AUTO) 10.8 % (20.0-44.0); MEAN CORPUSCULAR HEMOGLOBIN 29 PG (26.0-33.0); MEAN CORPUSCULAR HGB CONC 33 g/dl (31.0-36.0); MEAN CORPUSCULAR VOLUME 88 fL (82-100); MONOCYTES # (AUTO) 0.6 /CMM (0.1-1.30); MONOCYTES % (AUTO) 5.3 % (2.0-12.0); NEUTROPHILS # (AUTO) 9.2 /CMM (1.8-8.9); NEUTROPHILS % (AUTO) 81.7 % (43.0-81.0); PLATELET COUNT (AUTO) 192 /CMM (150-450); RDW COEFFICIENT OF VARIATION 18.5 (11.5-15.0); RED BLOOD CELL COUNT(AUTO) 3.18 MIL/uL (4.0-5.2); WHITE BLOOD COUNT (AUTO) 11.2 K/uL (4.3-11.0)
--- NOTE | 2017-10-21 07:00 | NUR ---
opening note: RECEIVED PT ON BED, VENT/ TRACH DEPENDENT , ALERT , ABLE TO MOUTH WORDS , RESPIRATION EVEN AND UNLABORED, NO SOB NOTED, ON TELE A-FLUTTER HR IN 90'S , TF, FIBERSOURCE AT 40CC/HR RUNNING VIA GT , TOLERATING WELL, L UPPER ARM PICC LINE SITE CDI, WITH NS AT 75 CC/HR , BED LOCKED AND IN LOWEST POSITION , CALL LIGHTS WITHIN EASY REACH, WILL CONTINUE TO MONITOR .
[2017-10-21 07:20] LABS: CALCIUM, SERUM 8.3 mg/dL (8.5-10.1); CREATININE 0.6 mg/dL (0.6-1.3); POTASSIUM 4.1 mmol/L (3.5-5.1)
[2017-10-21 08:00] VITALS: BP 100/51
[2017-10-21] MEDS: IV NS 0.9% 1,000 ML IV PRN (09:06)
[2017-10-21] MEDS: VANCOMYCIN 0.75 GM in IV D5W 250 ML IV SCH ×2 (09:38→20:54)
[2017-10-21] MEDS: NYSTATIN TOP POWDER 15 GM BOTTLE TP SCH ×2 (09:44→21:04)
[2017-10-21 12:00] VITALS: BP 104/54
[2017-10-21 12:52] LABS: BILIRUBIN,DIRECT 0.1 mg/dL (0.0-0.2); BILIRUBIN,TOTAL 0.5 mg/dL (0.2-1.0); PHOSPHORUS 3.9 mg/dL (2.5-4.9); TOTAL PROTEIN, SERUM 4.8 g/dL (6.4-8.2)
[2017-10-21 13:00] LABS: MAGNESIUM 1.6 mg/dL (1.8-2.4)
[2017-10-21 16:00] VITALS: BP 95/65
[2017-10-21] MEDS: RIVAROXABAN 10 MG TABLET PO SCH (16:20)
[2017-10-21] MEDS ORDERED: BISACODYL SUPP (10 MG) 10 MG/SUPP.RECT SUPP.RECT RC PRN (18:00)
[2017-10-21] MEDS ORDERED: MAGNESIUM HYDROXIDE 30 ML UDC GT PRN (18:00)
[2017-10-21] MEDS ORDERED: LORAZEPAM 1 MG TABLET GT PRN (18:00)
[2017-10-21] MEDS ORDERED: NA PHOS,M-B/NA PHOS,DI-BA 1 EA ENEMA RC PRN (18:00)
[2017-10-21] MEDS: MULTIVIT, IRON, MIN NO. 8, FA 1 TAB GT SCH (18:37)
--- NOTE | 2017-10-21 19:03 | NUR ---
CLOSING NOTES MD TENA RECONCILE MEDICATIONS NORCO NOT ORDERED. SPOUSE REQUESTING MEDICATION OTHER PAIN MEDICATIONS ORDERED OFFERED TO PT WHO REFUSED. PT VITAL SIGNS STABLE AFIBRILE NO SOB REMAINS ON VENTILATOR.
[2017-10-21 20:00] VITALS: BP 111/65
[2017-10-21] MEDS: METOPROLOL TARTRATE 25 MG TABLET GT SCH (20:56)
[2017-10-21] MEDS ORDERED: Medication Not On Formulary EA (Melatonin 3 MG) GT SCH (22:00)
[2017-10-21] MEDS: HYDROMORPHONE INJ 0.5 MG/0.5 ML SYRINGE IV PRN (23:02)
[2017-10-21] MEDS ORDERED: LEVALBUTEROL HCL NEB 1.25 MG/0.5 ML VIAL.NEB IH PRN (23:30)
[2017-10-22] VITALS: BP 109/63
[2017-10-22] MEDS: MUPIROCIN OINT 2% 22 GM TUBE TP SCH ×2 (00:21→13:57)
[2017-10-22] MEDS: IV NS 0.9% 1,000 ML IV PRN (03:16)
[2017-10-22 04:00] VITALS: BP 103/54
[2017-10-22] MEDS: ZOSYN IVPB 3.375 G in IV D5W 50ml IV SCH ×3 (04:50→17:21)
[2017-10-22] MEDS: METRONIDAZOLE 500 MG TABLET PO SCH ×3 (04:51→21:21)
[2017-10-22] MEDS: FIBERSOURCE HN 1,000 ML BOTTLE GT PRN (04:54)
--- NOTE | 2017-10-22 07:35 | NUR ---
LOWERATOR OPERATOR: OPENING NOTE RECEIVED PT A/OX4. NO DISTRESS NOTED. NO SOB NOTED. ON MECHANICAL VENTILATION SETTING INCLUDE PORTEX 7 AC 16 TV 400, FIO2 35% PEEP 0. TELE MONITORING CONTROLLED A.FLUTTER. ON FIBERSOURCE FEEDING RUNNING AT 40ML/HR. DEVENDRA PICC LINE RUNNING NS AT 75ML/HR. SITE CLEAR AND PATENT. ON CONTACT ISOLATION FOR MRSA NARES. RESTING COMFORTABLY IN BED. CALL LIGHT WITHIN REACH.
[2017-10-22 07:56] LABS: BASOPHILS % (AUTO) 0.4 % (0.0-2.0); EOSINOPHILS # (AUTO) 0.2 /CMM (0.0-0.7); EOSINOPHILS % (AUTO) 2.1 % (0.0-6.0); HEMATOCRIT 27 % (33-45); HEMOGLOBIN 8.9 g/dL (11.5-14.8); LYMPHOCYTES # (AUTO) 1.3 /CMM (0.8-4.8); LYMPHOCYTES % (AUTO) 12.7 % (20.0-44.0); MEAN CORPUSCULAR HEMOGLOBIN 29 PG (26.0-33.0); MEAN CORPUSCULAR HGB CONC 33 g/dl (31.0-36.0); MEAN CORPUSCULAR VOLUME 88 fL (82-100); MONOCYTES # (AUTO) 0.6 /CMM (0.1-1.30); MONOCYTES % (AUTO) 5.3 % (2.0-12.0); NEUTROPHILS # (AUTO) 8.3 /CMM (1.8-8.9); NEUTROPHILS % (AUTO) 79.5 % (43.0-81.0); PLATELET COUNT (AUTO) 178 /CMM (150-450); RDW COEFFICIENT OF VARIATION 18.5 (11.5-15.0); WHITE BLOOD COUNT (AUTO) 10.4 K/uL (4.3-11.0)
[2017-10-22 08:00] VITALS: BP_SYST 100; BP_SYST 98; BP_DIAS 54; BP_DIAS 60
[2017-10-22 08:03] LABS: CALCIUM, SERUM 8.3 mg/dL (8.5-10.1); CREATININE 0.6 mg/dL (0.6-1.3); MAGNESIUM 1.6 mg/dL (1.8-2.4); PHOSPHORUS 3.6 mg/dL (2.5-4.9); POTASSIUM 3.8 mmol/L (3.5-5.1)
[2017-10-22] MEDS: VANCOMYCIN 0.75 GM in IV D5W 250 ML IV SCH (08:25)
[2017-10-22] MEDS: DOCUSATE SODIUM LIQ 100 MG/10 ML UDC GT SCH ×2 (08:25→17:00)
[2017-10-22] MEDS: FUROSEMIDE 20 MG TABLET GT SCH (08:25)
[2017-10-22] MEDS: FOLIC ACID 1 MG TABLET GT SCH (08:25)
[2017-10-22] MEDS: SIMETHICONE SUSP 40 MG/0.6 ML BOTTLE GT SCH (08:26)
[2017-10-22] MEDS: METOPROLOL TARTRATE 25 MG TABLET GT SCH ×2 (08:26→21:22)
[2017-10-22] MEDS: NYSTATIN TOP POWDER 15 GM BOTTLE TP SCH ×2 (08:31→21:00)
--- NOTE | 2017-10-22 09:31 | NUR ---
GAVE REPORT TO CONRADO GARRIDO FROM ICU. LEFT PT A/OX4. NO DISTRESS NOTED. NO SOB NOTED. NO PAIN NOTED. ALL MORNING MEDICATIONS GIVEN THROUGH G-TUBE. ENDORSED ALL OTHER INFORMATION TO RN.
[2017-10-22 12:00] VITALS: BP 97/56
[2017-10-22] MEDS: HYDROMORPHONE INJ 0.5 MG/0.5 ML SYRINGE IV PRN (13:56)
[2017-10-22] MEDS: Magnesium 1GM/D5W 100ML PREMIX 100 ML IV SCH ×2 (13:56→15:32)
[2017-10-22 16:00] VITALS: BP 115/69
--- NOTE | 2017-10-22 16:09 | NUR ---
Patient received trached on PB 840 vent. Alarms verified and audible. Suctioned and lavaged moderate-large amount of thick venegas secretions. Vent plugged into red outlet. Ambu bag at [facility].
[2017-10-22] MEDS: MULTIVIT, IRON, MIN NO. 8, FA 1 TAB GT SCH (17:22)
[2017-10-22] MEDS: RIVAROXABAN 10 MG TABLET PO SCH (17:22)
[2017-10-22] MEDS: ASCORBIC ACID 500 MG TABLET PO SCH (17:22)
[2017-10-22 20:00] VITALS: BP 119/54
[2017-10-22] MEDS: ATORVASTATIN 10 MG TABLET GT SCH (21:21)
[2017-10-23] VITALS: BP 106/43
[2017-10-23] MEDS: MUPIROCIN OINT 2% 22 GM TUBE TP SCH ×2 (01:00→13:00)
[2017-10-23 04:00] VITALS: BP 102/57
[2017-10-23] MEDS: METRONIDAZOLE 500 MG TABLET PO SCH ×3 (04:32→21:18)
[2017-10-23] MEDS: FIBERSOURCE HN 1,000 ML BOTTLE GT PRN (04:33)
[2017-10-23 06:39] LABS: BASOPHILS % (AUTO) 0.3 % (0.0-2.0); EOSINOPHILS # (AUTO) 0.2 /CMM (0.0-0.7); EOSINOPHILS % (AUTO) 2.2 % (0.0-6.0); HEMATOCRIT 27 % (33-45); HEMOGLOBIN 8.9 g/dL (11.5-14.8); LYMPHOCYTES # (AUTO) 1.4 /CMM (0.8-4.8); MEAN CORPUSCULAR HEMOGLOBIN 29 PG (26.0-33.0); MEAN CORPUSCULAR HGB CONC 33 g/dl (31.0-36.0); MEAN CORPUSCULAR VOLUME 88 fL (82-100); MONOCYTES # (AUTO) 0.6 /CMM (0.1-1.30); MONOCYTES % (AUTO) 6.4 % (2.0-12.0); NEUTROPHILS # (AUTO) 7.1 /CMM (1.8-8.9); NEUTROPHILS % (AUTO) 76.1 % (43.0-81.0); PLATELET COUNT (AUTO) 204 /CMM (150-450); RDW COEFFICIENT OF VARIATION 19.7 (11.5-15.0); RED BLOOD CELL COUNT(AUTO) 3.06 MIL/uL (4.0-5.2); WHITE BLOOD COUNT (AUTO) 9.3 K/uL (4.3-11.0)
[2017-10-23 07:05] LABS: CALCIUM, SERUM 8.3 mg/dL (8.5-10.1); CREATININE 0.6 mg/dL (0.6-1.3); POTASSIUM 3.7 mmol/L (3.5-5.1)
--- NOTE | 2017-10-23 07:19 | NUR ---
RT PATIENT REC'D TRACHED ON [facility] VENT WITH SETTINGS SET BY MD CONCHA TABOR. VENT ALARMS CHECKED + AUDIBLE. CUFF PRESSURE CHECKED ROCKET MOTOR TESTER. SUCTIONED WITH SMALL AMT HUGHES SEMITHICK SECRETIONS. DIM COARSE B/S. PATIENT IN NO DISTRESS AT THIS TIME. AMBU BAG AT HOB. Addendum: 10/23/17 at 0911 by LORENZO BARRIOS RT Amended: Links added.
--- NOTE | 2017-10-23 07:42 | NUR ---
CORPORATE DEVELOPMENT INTERN INITIAL NOTE RN RECEIVED PT A/OX4 RESTING COMFORTABLY IN BED. NO DISTRESS NOTED. NO SOB NOTED. PT REMAIN ON ON MECHANICAL VENTILATION SETTING INCLUDE PORTEX 7 AC 16 TV 400, FIO2 35% PEEP 0. TELE IN PLACE SHOWING CONTROLLED A.FLUTTER. GTF CONTINUED FIBERSOURCE RUNNING AT 40ML/HR. PT HAS DEVENDRA PICC LINE RUNNING NS AT 75ML/HR. SITE CLEAR AND PATENT. CONTACT ISOLATION FOR MRSA NARES OBSERVED AND FOLLOWED. CALL LIGHT WITHIN REACH. SAFETY MEASURE IN PLACE RN WILL CONTINUE TO FOLLOW THROUGHOUT THE DAY
[2017-10-23 08:00] VITALS: BP 96/54
[2017-10-23] MEDS: DOCUSATE SODIUM LIQ 100 MG/10 ML UDC GT SCH ×2 (08:37→16:46)
[2017-10-23] MEDS: FOLIC ACID 1 MG TABLET GT SCH (08:37)
[2017-10-23] MEDS: METOPROLOL TARTRATE 25 MG TABLET GT SCH ×2 (08:37→21:00)
[2017-10-23] MEDS: SIMETHICONE SUSP 40 MG/0.6 ML BOTTLE GT SCH (08:38)
[2017-10-23] MEDS: FUROSEMIDE 20 MG TABLET GT SCH (08:38)
[2017-10-23] MEDS: HYDROMORPHONE INJ 0.5 MG/0.5 ML SYRINGE IV PRN ×3 (08:38→22:26)
[2017-10-23] MEDS: NYSTATIN TOP POWDER 15 GM BOTTLE TP SCH ×2 (08:43→21:00)
[2017-10-23 12:00] VITALS: BP 96/51
[2017-10-23 16:00] VITALS: BP 111/53
[2017-10-23] MEDS: MULTIVIT, IRON, MIN NO. 8, FA 1 TAB GT SCH (16:45)
[2017-10-23] MEDS: ASCORBIC ACID 500 MG TABLET PO SCH (16:45)
[2017-10-23] MEDS: RIVAROXABAN 10 MG TABLET PO SCH (16:46)
--- NOTE | 2017-10-23 18:50 | NUR ---
RN CLOSING NOTE PT REMAINED STABLE THROUGHOUT THE SHIFT. NO ACUTE DISTRESS NOTED. ALL NEEDS ATTENDED TO PATIENT REQUESTING DIET SPEECH EVALUATION ORDERED VIA ECHO TECHNICIAN LENKA. PT KEPT CLEAN AND DRY. CALL LIGHT WITHIN REACH. RN WILL ENDORSE TO PM RN FOR CONTINUITY OF CARE.
--- NOTE | 2017-10-23 19:45 | NUR ---
RN NOTE RECEIVED PT IN NO ACUTE DISTRESS IN BED. PT IS A/O X 3 AND ABLE TO MAKE NEEDS KNOWN. PT IS ON MECHANICAL VENT VIA TRACH. TRACH SITE IS CLEAN DRY AND INTACT. PT TOLERATING VENT SETTING WELL WITH O2 SAT @ 100%. PT IS ON TELE WITH AFLUTTER ON THE MONITOR. PT HAS GTUBE THAT IS CLEAN DRY INTACT AND PATENT WITH FIBERSOURCE @ 40ML/HR AND TOLERATING WELL WITH 0 RESIDUAL. PT HAS DEVENDRA PICC THAT IS CLEAN DRY INTACT AND PATENT WITH NS @ 75ML/HR AND TOLERATING WELL. BED IN LOW LOCK POSITION WITH RIALS UP X 2. CALL LIGHT WITHIN REACH AND ALL SAFETY MEASURES ENSURED AND CARRIED OUT. WILL CONTINUE TO MONITOR PT.
[2017-10-23 20:00] VITALS: BP 106/54
[2017-10-23] MEDS: ATORVASTATIN 10 MG TABLET GT SCH (21:21)
[2017-10-24] VITALS (7 sets, daily range): BP systolic 101–115; BP diastolic 45–62
[2017-10-24] MEDS: MUPIROCIN OINT 2% 22 GM TUBE TP SCH ×2 (01:00→12:35)
[2017-10-24] MEDS: IV NS 0.9% 1,000 ML IV PRN ×2 (04:00→16:16)
[2017-10-24] MEDS: METRONIDAZOLE 500 MG TABLET PO SCH ×2 (05:29→12:35)
--- NOTE | 2017-10-24 07:05 | NUR ---
RN CLOSING NOTE PT REMAINS IN NO ACUTE DISTRESS IN BED. PT DID NOT HAVE ANY SIGNIFICANT CHANGE IN CONDITION. PT TOLERATED VENT SETTING WELL. ALL NEEDS MET, ALL ORDERS CARRIED OUT. WILL ENDORSE CARE TO AM RN FOR CONTINUITY OF CARE.
[2017-10-24 07:26] LABS: CALCIUM, SERUM 8.3 mg/dL (8.5-10.1); CREATININE 0.5 mg/dL (0.6-1.3); POTASSIUM 3.9 mmol/L (3.5-5.1)
--- NOTE | 2017-10-24 07:42 | NUR ---
RN NOTES RECEIVED PT IN STABLE CONDITION, CHRONIC VENT/TRACH DEPENDENT, A&0X3, ABLE TO MOUTH OUT WORDS AND MAKE NEEDS KNOWN. A FLUTTER ON THE TELE HENRY HR 74. GTF AT 40ML/HR. DEVENDRA PICC LINE INTACT IVF AT 75ML/HR. BED LOCKED AND IN LOWEST POSITION, CALL LIGHT WITHIN REACH, WILL CONT TO HENRY.
[2017-10-24] MEDS: FUROSEMIDE 20 MG TABLET GT SCH (08:28)
[2017-10-24] MEDS: FOLIC ACID 1 MG TABLET GT SCH (08:28)
[2017-10-24] MEDS: METOPROLOL TARTRATE 25 MG TABLET GT SCH ×2 (08:29→21:27)
[2017-10-24] MEDS: NYSTATIN TOP POWDER 15 GM BOTTLE TP SCH ×2 (08:29→21:30)
[2017-10-24] MEDS: DOCUSATE SODIUM LIQ 100 MG/10 ML UDC GT SCH ×2 (08:29→16:17)
[2017-10-24] MEDS: SIMETHICONE SUSP 40 MG/0.6 ML BOTTLE GT SCH (08:30)
[2017-10-24] MEDS: MULTIVIT, IRON, MIN NO. 8, FA 1 TAB GT SCH (16:17)
[2017-10-24] MEDS: RIVAROXABAN 10 MG TABLET PO SCH (16:17)
[2017-10-24] MEDS: ASCORBIC ACID 500 MG TABLET PO SCH (16:17)
[2017-10-24] MEDS: HYDROMORPHONE INJ 0.5 MG/0.5 ML SYRINGE IV PRN (18:22)
--- NOTE | 2017-10-24 19:10 | NUR ---
RN NOTES PT REMAINED IN STABLE CONDITION THROUGHOUT THE SHIFT, ALL NEEDS MET WILL ENDORSE TO ONCOMING SHIFT.
--- NOTE | 2017-10-24 20:00 | NUR ---
RN NOTES RECEIVED PATIENT AWAKE IN BED WITH NO RESPIRATORY DISTRESS OR SHORTNESS OF BREATH. BREATHING EVEN AND UNLABORED. NO PHYSICAL MANIFESTATION OF PAIN OR DISCOMFORT. ALERT AND ORIENTED, NODS OR SHAKES HEAD TO ANSWER YES OR NO QUESTION. DAUGHTER AND BEDSIDE. WILL BE PICKED UP BY AMBULANCE AT 2145. VITAL SIGNS WNL. KEPT CLEAN AND DRY. WILL CONTINUE TO MONITOR.
[2017-10-24] MEDS: ATORVASTATIN 10 MG TABLET GT SCH (21:27)
--- NOTE | 2017-10-24 22:20 | NUR ---
RN NOTES PATIENT BEING PICKED UP BY [facility] TO DISCHARGE TO [facility]. IN STABLE CONDITION, ALERT AND ORIENTED, NON VERBAL. VITAL SIGNS WNL. NO SIGN OR SYMPTOM OF DISTRESS. CALLED [facility], SPOKE TO NATHAN, ENDORSED PATIENT. SPOKE TO HEAD OF AMBULANCE, ENDORSED PATIENT. ALL IV ABT AND FEEDING TURNED OFF AND REMOVED FROM PATIENT.
== END 2017-10-24 22:25 | DRG 870 ==
LOC: ER 13:57 → ICU 16:42 → TELE-TD 10-19 15:21 → TELE1 10-20 10:40
PROVIDERS: ADMIT Internal Medicine; ATTEND Internal Medicine
PROC: 5A1955Z Respiratory Ventilation, Greater than 96 Consecutive Hours (ICD-10-PCS; principal; 2017-10-18)
DX: A41.9 Sepsis, unspecified organism (principal); I21.4 Non-ST elevation (NSTEMI) myocardial infarction; J96.21 Acute and chronic respiratory failure with hypoxia; K72.00 Acute and subacute hepatic failure without coma; R65.21 Severe sepsis with septic shock; Z99.11 Dependence on respirator [ventilator] status; E44.0 Moderate protein-calorie malnutrition; Z93.0 Tracheostomy status; I48.91 Unspecified atrial fibrillation; E87.3 Alkalosis; J96.22 Acute and chronic respiratory failure with hypercapnia; D68.59 Other primary thrombophilia; I48.92 Unspecified atrial flutter; Z68.1 Body mass index [BMI] 19.9 or less, adult; E83.39 Other disorders of phosphorus metabolism; I11.0 Hypertensive heart disease with heart failure; E78.5 Hyperlipidemia, unspecified; F41.9 Anxiety disorder, unspecified; K21.9 Gastro-esophageal reflux disease without esophagitis; Z79.01 Long term (current) use of anticoagulants; E88.09 Other disorders of plasma-protein metabolism, not elsewhere classified; E83.42 Hypomagnesemia; J44.9 Chronic obstructive pulmonary disease, unspecified; I27.20 Pulmonary hypertension, unspecified; D63.8 Anemia in other chronic diseases classified elsewhere; R74.0 Nonspecific elevation of levels of transaminase and lactic acid dehydrogenase [LDH]; L98.8 Other specified disorders of the skin and subcutaneous tissue; L30.4 Erythema intertrigo; R13.10 Dysphagia, unspecified; I50.9 Heart failure, unspecified; Z22.322 Carrier or suspected carrier of Methicillin resistant Staphylococcus aureus; M41.9 Scoliosis, unspecified; Z90.2 Acquired absence of lung [part of]; T38.0X5A Adverse effect of glucocorticoids and synthetic analogues, initial encounter; Y92.129 Unspecified place in nursing home as the place of occurrence of the external cause
CPT/HCPCS: 31720; 36415; 36600; 71045-TC; 76700-TC; 78226; 80048-TC; 80053-TC; 80061-TC; 80076-TC; 80202-TC; 82553-TC; 82746; 82803-TC; 83540-TC; 83605-TC; 83735-TC; 83880; 84100-TC; 84134-TC; 84443-TC; 84484-TC; 85025-TC; 85652-TC; 85730-TC; 86850-TC; 87040-TC; 87081-TC; 92611-TC; 93307-TC; 93970-TC; 94002-TC; 94003-TC; 94760-TC; 94762-TC; 99082-TC; A4606; A9537; J1650; J2543; J2997; J3370; J3475; J7030; J7040; J7050; J7060; Q9967; Z7610

== ENCOUNTER 2017-12-26 12:30 | Emergency (ER) | payer OTHER, MEDICAID ==
[~2017-12-26] VITALS: Ht 167.6 cm; Wt 65.8 kg
[~2017-12-26 12:30] MED LIST changes: +ASCO500T9 PO; +BISA10SU8 RC; +DOCU50LI GT; -DOCU50LI15 GT; +ENOX30DI SQ; -FAMO40TA7 GT; -FERR325T23 GT; +LACT-96 GT; +LEVA1.2528 IH; -LEVA1.2528 NEB; +MAGN400O6 GT; +MELA3TAB GT; +METO25TA20 GT; -METO25TA20 PO; +MULT-447 GT; +NA P133E RC; +OMEP20CA10 GT; -PANT40TA2 GT; -RIVA10TA PO; -TIOT18CA3 IH; -[UNRECOGNIZED DRUG - CODE] GT
[2017-12-26 12:55] VITALS: BP 107/69
[2017-12-26 15:46] VITALS: BP 129/73
[2017-12-26 17:20] VITALS: BP 116/65
[2017-12-26 17:31] VITALS: BP 116/65
== END 2017-12-26 17:34 | disposition home or self-care (01) ==
LOC: ER 12:33
DX: K94.23 Gastrostomy malfunction (principal); I10 Essential (primary) hypertension; D64.9 Anemia, unspecified; E78.00 Pure hypercholesterolemia, unspecified; Z88.8 Allergy status to other drugs, medicaments and biological substances; Z88.5 Allergy status to narcotic agent; Z88.6 Allergy status to analgesic agent; Z79.01 Long term (current) use of anticoagulants
CPT/HCPCS: 74018; A4606; A4623; Z7610

== ENCOUNTER 2018-01-08 00:32 | Emergency (ER) | payer OTHER, BC, MEDICAID | END 2018-01-08 06:05 | disposition home or self-care (01) | DX: R41.82 Altered mental status, unspecified (principal); F11.10 Opioid abuse, uncomplicated; D64.9 Anemia, unspecified; E78.00 Pure hypercholesterolemia, unspecified; I10 Essential (primary) hypertension; I48.91 Unspecified atrial fibrillation; I48.92 Unspecified atrial flutter; J90 Pleural effusion, not elsewhere classified; R18.8 Other ascites; Z88.5 Allergy status to narcotic agent; Z88.8 Allergy status to other drugs, medicaments and biological substances; Z88.6 Allergy status to analgesic agent; Z98.890 Other specified postprocedural states ==

== ENCOUNTER 2018-01-11 06:37 | Inpatient (IN) | payer OTHER, MEDICAID ==
[~2018-01-11] VITALS: Ht 170.2 cm; Wt 54.9 kg
--- NOTE | 2018-01-11 06:37 | NUR ---
TO BED 8 BIB PARAMEDICS C/O SOB WITH LOW O2 SAT PER EMS REPORT. PT AAOX2. RT AT BEDSIDE PLACE PT ON VENT. PLACE PT ON CARDIAC MONITORING, CONTINUOUS POX. ER MD AT BEDSIDE TO EVAL PT WITH ORDERS RECEIVED. WILL CARRY OUT ORDERS.
--- NOTE | 2018-01-11 06:38 | NUR ---
VENT SETTINGS AC-16, TV-450, FIO2-35%, PEEP-0. WILL CONTINUE TO MONITOR PT CLOSELY.
--- NOTE | 2018-01-11 06:40 | NUR ---
STARTED SL 18G TO LFA, BLOOD DRAWN AND SENT TO LAB.
[2018-01-11 06:53] VITALS: BP 159/90
--- NOTE | 2018-01-11 06:55 | NUR ---
PT TRANSPORTED TO RADIOLOGY FOR CT HEAD.
[2018-01-11 06:56] LABS: BASOPHILS % (AUTO) 0.2 % (0.0-2.0); EOSINOPHILS % (AUTO) 0.1 % (0.0-6.0); HEMATOCRIT 35 % (33-45); HEMOGLOBIN 10.7 g/dL (11.5-14.8); LYMPHOCYTES # (AUTO) 0.8 /CMM (0.8-4.8); LYMPHOCYTES % (AUTO) 5.2 % (20.0-44.0); MEAN CORPUSCULAR HGB CONC 31 g/dl (31.0-36.0); MEAN CORPUSCULAR VOLUME 84 fL (82-100); MONOCYTES # (AUTO) 0.8 /CMM (0.1-1.30); MONOCYTES % (AUTO) 5.2 % (2.0-12.0); NEUTROPHILS # (AUTO) 13.5 /CMM (1.8-8.9); NEUTROPHILS % (AUTO) 89.3 % (43.0-81.0); PLATELET COUNT (AUTO) 275 /CMM (150-450); RDW COEFFICIENT OF VARIATION 17.8 (11.5-15.0); RED BLOOD CELL COUNT(AUTO) 4.14 MIL/uL (4.0-5.2); WHITE BLOOD COUNT (AUTO) 15.1 K/uL (4.3-11.0)
--- NOTE | 2018-01-11 06:56 | NUR ---
PT REC'D TRACHED PORTEX 7 VIA AMBU BAG BY FIRE DEPARTMENT. PT PLACED ON NOTED MECH VENT SETTINGS GIVEN FROM FIRE DEPPARTMENT. NO RESP DISTRESS NOTED. SX'D THICK SMALL AMT OF BLOOD SECRETIONS. ALARMS ARE SET AND AUDIBLE, VENT PLUGGED INTO RED OUTLET. AMBU BAG BEDSIDE. WILL CONTINUE TO MONITOR Addendum: 01/11/18 at 0658 by LATRICE PAEZ RT Amended: Links added.
[2018-01-11] MEDS ORDERED: IV NS 0.9% 1,000 ML BAG IV ONE (07:00)
--- NOTE | 2018-01-11 07:13 | NUR ---
REPORT GIVEN TO AM SHIFT RN SSOB WITH LOW O2 SAT PER EMS REPORTARKIS.
[2018-01-11 07:18] LABS: ALBUMIN 3.2 g/dL (3.4-5.0); BILIRUBIN,DIRECT 0.2 mg/dL (0.0-0.2); BILIRUBIN,TOTAL 0.6 mg/dL (0.2-1.0); CALCIUM, SERUM 9.2 mg/dL (8.5-10.1); CREATININE 0.6 mg/dL (0.6-1.3); POTASSIUM 4.5 mmol/L (3.5-5.1); TOTAL PROTEIN, SERUM 8.7 g/dL (6.4-8.2)
[2018-01-11 07:21] LABS: TROPONIN I 0.034 ng/mL (0.00-0.056)
[2018-01-11 07:28] LABS: INR 1.22 (0.87-1.13)
--- NOTE | 2018-01-11 07:48 | NUR ---
urine obtained called lab for pickup
[2018-01-11] MEDS ORDERED: PIPERACILLIN /TAZOBACTAM 3.375 G in IV D5W 50 ML IV ONE (08:00)
[2018-01-11] MEDS ORDERED: VANCOMYCIN 1 GM in IV D5W 250 ML IV ONE (08:00)
[2018-01-11 08:06] LABS: APPEARANCE,URINE CLEAR (CLEAR); BILIRUBIN,URINE NEGATIVE (NEGATIVE); BLOOD, URINE NEGATIVE Ery/uL (NEGATIVE); COLOR,URINE YELLOW (YELLOW); KETONES,URINE NEGATIVE (NEGATIVE); LEUKOCYTE ESTERASE ,URINE NEGATIVE (NEGATIVE); NITRITE, URINE NEGATIVE (NEGATIVE); PROTEIN,URINE 3+ mg/dl (NEGATIVE); UGLUCOSE NEGATIVE (NEGATIVE); UROBILINOGEN,URINE 0.2 EU/dL (0.2)
[2018-01-11 09:23] VITALS: BP 159/90
[2018-01-11 09:48] LABS: BACTERIA,URINE Few /HPF (None Seen); RBC,URINE NONE SEEN /HPF (0-2); SQUAMOUS EPITHELIAL CELL,UR Few /HPF (None Seen); WBC,URINE 0-2 /HPF (0-3)
[2018-01-11 09:49] LABS: URINE AMORPHOUS URATE Few /HPF (None Seen)
--- NOTE | 2018-01-11 10:25 | NUR ---
REPORT GIVEN TO VANDANA GARRIDO FOR FLOYD UPON ADMISSION.
--- NOTE | 2018-01-11 10:30 | NUR ---
PATIENT TRANSPORTED TO [facility] VIA ACLS PROTOCOL WITH RN, RT, AND EMT. RN, VANDANA TO PROVIDE FLOYD.
--- NOTE | 2018-01-11 11:00 | NUR ---
TELE/CLIENT SERVER DEVELOPER PATIENT TRANSFERRED FROM ER IN STABLE CONDITION. REPORT GIVEN BY CAITLIN GARRIDO FROM ER. A/O X 2, MOUTH WORDS AND HEAD AND FACIAL GESTURES. NO SIGNS OF ACUTE DISTRESS. NO COMPLAIN OF PAIN OR DISCOMFORT. TRACH AND VENT DEPENDENT TOLERATING WELL. G TUBE FLUSHING WELL, LEFT FOREARM 18G IV SITE, INTACT AND FLUSHING WELL. ON TELE MONITOR NOTED WITH SINUS TACHY WITH RATE OF 105. HOB ELEVATED FOR ASPIRATION PRECAUTION. INCONTINENT OF BOWEL AND BLADDER. NO SKIN OPENING/WOUND NOTED BESIDES BILATERAL FEET DRYNESS, LEFT BUTTOCK SCATTERED DRYNESS. ALL NEEDS ATTENDED TO. CALL LIGHT WITHIN REACH. WILL CONTINUE TO MONITOR TO ENSURE SAFETY. RAZ GRULLON PAGED FOR ADMISSION ORDERS. AWAITING FOR ADMISSION ORDERS.
[2018-01-11 11:29] VITALS: BP 136/78
--- NOTE | 2018-01-11 13:41 | NUR ---
TELE/RN SEEN BY DR OCHOA PATIENT SEEN BY DR OCHOA WITH ORDERS TO START XOPENEX 1.25 NEB Q 8 HRS, MADE AWARE PATIENT ALLERGIC TO ALBUTEROL PER DR OCHOA OKAY TO GIVE.
[2018-01-11] MEDS ORDERED: ALBUTEROL FS 2.5 MG/0.5 ML VIAL.NEB NEB SCH (13:47)
[2018-01-11] MEDS ORDERED: MAG HYDROX/AL HYDROX/SIMETH 30 ML UDC PO PRN (14:00)
[2018-01-11] MEDS: JEVITY 1.2 CAL 1,000 ML BOTTLE GT PRN (14:00)
[2018-01-11] MEDS: LEVALBUTEROL HCL NEB 1.25 MG/0.5 ML VIAL.NEB IH SCH ×2 (15:00→23:59)
[2018-01-11] MEDS ORDERED: FUROSEMIDE 20 MG/2 ML VIAL IV ONE (16:00)
[2018-01-11] MEDS ORDERED: ENOXAPARIN SODIUM 40 MG/0.4 ML DISP.SYRIN SQ ONE (16:00)
[2018-01-11] MEDS: ASCORBIC ACID 500 MG TABLET PO SCH (17:18)
[2018-01-11] MEDS: DOCUSATE SODIUM LIQ 100 MG/10 ML UDC GT SCH (17:18)
[2018-01-11] MEDS: FUROSEMIDE 20 MG TABLET GT SCH (17:25)
--- NOTE | 2018-01-11 17:25 | NUR ---
TELE/RN LASIX 20MG 5:30PM HELD LASIX 20MG 5:30PM HELD SECONDARY TO LASIX 40MG IV PUSH TIMES ONE GIVEN AT 5PM
[2018-01-11] MEDS: CEFTRIAXONE 1 G in IV D5W 50 ML IV SCH (17:50)
[2018-01-11] MEDS: ACETAMINOPHEN 325 MG TABLET PO PRN (18:02)
--- NOTE | 2018-01-11 18:10 | NUR ---
TELE/RN CLOSING NOTE PATIENT IN BED IN STABLE CONDITION. A/OX 2-3, ABLE TO MAKE NEEDS KNOWN AND MAKE DECISION. TRACH AND VENT DEPENDENT. NO SIGNS OF ACUTE DISTRESS. NO COMPLAIN OF PAIN OR DISCOMFORT. ON TELE MONITOR NOTED WITH SINUS TAHCY IN 105. ALL NEEDS ATTENDED TO. CALL LIGHT WITHIN REACH. WILL ENDORSE TO NEXT SHIFT FOR CONTINUITY OF CARE.
[2018-01-11 20:00] VITALS: BP 130/67
--- NOTE | 2018-01-11 20:15 | NUR ---
RN NOTES IN BED, LYING COMFORTABLY WITH NO DISTRESS NOTED. BREATHING EVEN AND UNLABORED. NO COMPLAINT OF PAIN OR DISCOMFORT. REMAINS AFEBRILE WITH SKIN WARM AN DRY TO TOUCH. ALERT AND ORIENTED, ABLE TO VERBALLY COMMUNICATE NEEDS.. KEPT CLEAN AND DRY WILL CONTINUE TO MONITOR.
[2018-01-11] MEDS: METOPROLOL TARTRATE 25 MG TABLET GT SCH (22:40)
[2018-01-11] MEDS: ZOLPIDEM TARTRATE 5 MG TABLET PO PRN (22:41)
[2018-01-11] MEDS: ATORVASTATIN 10 MG TABLET PO SCH (22:41)
[2018-01-12] VITALS: BP 96/48
[2018-01-12 04:00] VITALS: BP 104/83
[2018-01-12 06:42] LABS: BASOPHILS % (AUTO) 0.3 % (0.0-2.0); EOSINOPHILS % (AUTO) 0.4 % (0.0-6.0); HEMATOCRIT 29 % (33-45); HEMOGLOBIN 8.9 g/dL (11.5-14.8); LYMPHOCYTES # (AUTO) 1.1 /CMM (0.8-4.8); MEAN CORPUSCULAR HGB CONC 31 g/dl (31.0-36.0); MEAN CORPUSCULAR VOLUME 84 fL (82-100); MONOCYTES # (AUTO) 0.6 /CMM (0.1-1.30); MONOCYTES % (AUTO) 7.3 % (2.0-12.0); NEUTROPHILS # (AUTO) 5.9 /CMM (1.8-8.9); PLATELET COUNT (AUTO) 242 /CMM (150-450); RDW COEFFICIENT OF VARIATION 17.7 (11.5-15.0); RED BLOOD CELL COUNT(AUTO) 3.41 MIL/uL (4.0-5.2); WHITE BLOOD COUNT (AUTO) 7.6 K/uL (4.3-11.0)
[2018-01-12 06:55] LABS: CALCIUM, SERUM 8.4 mg/dL (8.5-10.1); CREATININE 0.6 mg/dL (0.6-1.3); MAGNESIUM 1.6 mg/dL (1.8-2.4); PHOSPHORUS 2.7 mg/dL (2.5-4.9); POTASSIUM 3.5 mmol/L (3.5-5.1)
[2018-01-12] MEDS: LEVALBUTEROL HCL NEB 1.25 MG/0.5 ML VIAL.NEB IH SCH ×3 (06:56→23:13)
[2018-01-12 08:00] VITALS: BP 125/75
[2018-01-12] MEDS: PANTOPRAZOLE 40 MG TABLET.DR PO SCH (08:33)
[2018-01-12] MEDS: FUROSEMIDE 20 MG TABLET GT SCH (08:33)
[2018-01-12] MEDS: METOPROLOL TARTRATE 25 MG TABLET GT SCH ×2 (08:33→21:09)
[2018-01-12] MEDS: FOLIC ACID 1 MG TABLET GT SCH (08:33)
[2018-01-12] MEDS: Z GUARD REMEDY 2 OZ OINT TP PRN (08:35)
[2018-01-12] MEDS: DOCUSATE SODIUM LIQ 100 MG/10 ML UDC GT SCH ×2 (08:35→16:25)
[2018-01-12] MEDS: ENOXAPARIN SODIUM 30 MG/0.3 ML DISP.SYRIN SQ SCH (08:44)
[2018-01-12] MEDS ORDERED: SIMETHICONE SUSP 40 MG/0.6 ML BOTTLE GT SCH (09:00)
[2018-01-12] MEDS: Magnesium 1GM/D5W 100ML PREMIX 100 ML IV SCH ×5 (09:19→14:03)
[2018-01-12 12:00] VITALS: BP 123/83
[2018-01-12] MEDS: JEVITY 1.2 CAL 1,000 ML BOTTLE GT PRN (12:45)
[2018-01-12 16:00] VITALS: BP 116/62
[2018-01-12] MEDS: CEFTRIAXONE 1 G in IV D5W 50 ML IV SCH (16:25)
[2018-01-12] MEDS: ASCORBIC ACID 500 MG TABLET PO SCH (16:25)
[2018-01-12] MEDS: HYDROCODONE/APAP 5/325MG 1 EACH TABLET PO PRN ×2 (16:44→21:08)
[2018-01-12] MEDS ORDERED: SIMETHICONE SUSP 40 MG/0.6 ML BOTTLE PO PRN (17:30)
[2018-01-12] MEDS: SIMETHICONE SUSP 40 MG/0.6 ML BOTTLE GT SCH ×2 (18:45→21:09)
--- NOTE | 2018-01-12 19:03 | NUR ---
PT RCVD TRACHED PORTEX 7 ON VENT WITH NOTED SETTINGS. PT IS ALERT AND AWAKE. NO RESP DISTRESS NOTED. SUCTIONED SMALL AMOUNT OF YELLOW THICK SECRETIONS. ALARMS ARE SET AND AUDIBLE, VENT PLUGGED INTO RED OUTLET. AMBU BAG BEDSIDE. AMBU BAG AT BEDSIDE ,WILL CONTINUE TO MONITOR
--- NOTE | 2018-01-12 19:07 | NUR ---
DRESSMAKER HELPER NOTES RECEIVED PT ON BED. A/O X2. ON TELE MONITOR SINUS TACHY 110. PT FAMILY ON BEDSIDE. ON [facility] VENT SETTING SATURATING WELL. ON GTUBE FEEDING, ON RESIDUAL. IV ACCESS ON [facility] SL #18. PATENT AND INTACT. HEAD OF BED ELEVATED. SIDE RAILS UP. CALL LIGHT WITHIN REACH. BED ALARM ON.WILL CONTINUE TO MONITOR PT CLOSELY. Addendum: 01/13/18 at 0142 by TAVON PHELAN RN NO RESIDUAL*
[2018-01-12 20:00] VITALS: BP 122/65
[2018-01-12] MEDS: ATORVASTATIN 10 MG TABLET PO SCH (21:09)
--- NOTE | 2018-01-12 21:37 | NUR ---
EQUITY MANAGER NOTES PT COMPLAINED OF GTUBE SITE PAIN. PAIN SCORE OF 7/10. GTUBE FEEDING HOLD. 2 NURSE VERIFY GI TUBE PLACEMENT, GURGLING SOUND HEARD UPON AUSCULTATION. CALLED RENAY CRANDALL. ORDERED KUB WITH GASTROGRAFIN ROUTINE. WILL MONITOR PT PAIN CLOSELY.
[2018-01-12] MEDS ORDERED: DIATR MEGLU/DIATRIZOATE SODIUM 30 ML BOTTLE (GASTROGRAPHIN) ONE (23:04)
[2018-01-13] VITALS: BP 119/62
--- NOTE | 2018-01-13 01:33 | NUR ---
LEACHER NOTES PT KEPT NPO. KUB DONE. STILL WAITING ON THE RESULTS. WILL CONTINUE TO MONITOR.
[2018-01-13] MEDS: HYDROCODONE/APAP 5/325MG 1 EACH TABLET PO PRN ×3 (03:01→21:38)
[2018-01-13 04:00] VITALS: BP 106/61
--- NOTE | 2018-01-13 06:23 | NUR ---
GUN SYNCHRONIZER NOTES GTUBE FEEDING RESUMED. KUB CAME UP NEGATIVE, GTUBE PLACEMENT INTACT WITH NO EVIDENCE OF EXTRAVASATION
[2018-01-13 06:25] LABS: BASOPHILS # (AUTO) 0.1 /CMM (0.0-0.2); BASOPHILS % (AUTO) 0.6 % (0.0-2.0); EOSINOPHILS % (AUTO) 1.4 % (0.0-6.0); HEMATOCRIT 32 % (33-45); LYMPHOCYTES # (AUTO) 1.8 /CMM (0.8-4.8); LYMPHOCYTES % (AUTO) 20.9 % (20.0-44.0); MEAN CORPUSCULAR HGB CONC 31 g/dl (31.0-36.0); MEAN CORPUSCULAR VOLUME 83 fL (82-100); MONOCYTES # (AUTO) 0.6 /CMM (0.1-1.30); MONOCYTES % (AUTO) 6.6 % (2.0-12.0); NEUTROPHILS % (AUTO) 70.5 % (43.0-81.0); PLATELET COUNT (AUTO) 247 /CMM (150-450); RDW COEFFICIENT OF VARIATION 17.6 (11.5-15.0); RED BLOOD CELL COUNT(AUTO) 3.84 MIL/uL (4.0-5.2); WHITE BLOOD COUNT (AUTO) 8.6 K/uL (4.3-11.0)
[2018-01-13 06:33] LABS: CREATININE 0.6 mg/dL (0.6-1.3); PHOSPHORUS 2.9 mg/dL (2.5-4.9); POTASSIUM 4.1 mmol/L (3.5-5.1)
--- NOTE | 2018-01-13 07:19 | NUR ---
CARBONIZER NOTES NO ACUTE CHANGES NOTED DURING THE SHIFT. DUE MEDS GIVEN. PROVIDED COMFORT AND SAFETY. WILL ENDORSE TO THE AM NURSE FOR FLOYD.
--- NOTE | 2018-01-13 07:30 | NUR ---
INTERIOR DESIGN FACULTY MEMBER AM NOTES RECEIVED PT IN BED. A/O X2. ON PORTEX 7 TRACH TO MECHANICAL VENT WITH SETTING ORDERED. SATTING WELL. ABLE TO MOUTH WORDS, BREATHING EVEN AND UNLABORED, TELEMETRY READS SINUS TACH HR 103. NO SIGNS OF PAIN. LFA G 18 WITH NS AT TKO. SITE CLEAR. ON GTUBE FEEDING, JEVITY 50 ML/HR, O RESIDUAL. HEAD OF BED ELEVATED. SIDE RAILS UP. CALL LIGHT WITHIN REACH. BED ALARM ON. CALL IGHT WITHIN REACH. WILL CONTINUE TO MONITOR PT CLOSELY.
[2018-01-13] MEDS: LEVALBUTEROL HCL NEB 1.25 MG/0.5 ML VIAL.NEB IH SCH ×3 (07:43→23:42)
[2018-01-13 08:00] VITALS: BP 123/69
[2018-01-13] MEDS: SIMETHICONE SUSP 40 MG/0.6 ML BOTTLE GT SCH ×4 (09:00→21:41)
[2018-01-13] MEDS: PANTOPRAZOLE 40 MG TABLET.DR PO SCH (09:06)
[2018-01-13] MEDS: DOCUSATE SODIUM LIQ 100 MG/10 ML UDC GT SCH ×2 (09:06→17:50)
[2018-01-13] MEDS: METOPROLOL TARTRATE 25 MG TABLET GT SCH ×2 (09:07→21:40)
[2018-01-13] MEDS: FOLIC ACID 1 MG TABLET GT SCH (09:07)
[2018-01-13] MEDS: FUROSEMIDE 20 MG TABLET GT SCH (09:07)
[2018-01-13] MEDS: ENOXAPARIN SODIUM 30 MG/0.3 ML DISP.SYRIN SQ SCH (09:14)
--- NOTE | 2018-01-13 09:30 | NUR ---
PATIENT REPRESENTATIVE NOTES DUE MEDS GIVEN
--- NOTE | 2018-01-13 11:46 | NUR ---
PIGSKIN TRIMMER NOTES SPOKE WITH [facility] RE ZYVOX IV SHCEDULED FOR 1100 NOT AVAILABLE.
[2018-01-13 12:00] VITALS: BP 119/77
[2018-01-13] MEDS: LINEZOLID RTU BAG 600 MG in PREMIX 1 EA IV SCH ×2 (12:49→23:22)
--- NOTE | 2018-01-13 12:49 | NUR ---
SCRAP DROP ENGINEER NOTES ZYVOX IV STARTED.
[2018-01-13] MEDS ORDERED: IV NS 0.9% 500 ML IV PRN (13:00)
[2018-01-13] MEDS ORDERED: PEG 3350/NA SULF,BICARB,CL/KCL 4,000 ML BOTTLE PO ONE ×2 (14:00→22:00)
[2018-01-13] MEDS: LACTOBACILLUS RHAMNOSUS GG 1 EACH CAP.SPRINK PO SCH ×2 (15:01→17:50)
[2018-01-13] MEDS: RIFAXIMIN 550 MG TABLET PO SCH ×2 (15:01→17:50)
--- NOTE | 2018-01-13 15:11 | NUR ---
DRAWING IN MACHINE TENDER NOTES PATIENT SEEN BY DR. LEONARD GI DOCTOR. PATIENT SCHEDULED FOR COLONOSCOPY TOMORROW AT 1200. NPO POST MIDNIGHT. GOLYTELY TO START AT 10 PM TONIGHT. CONSENT SIGNED BY PATIENT.
[2018-01-13 16:00] VITALS: BP 117/77
[2018-01-13] MEDS: LORAZEPAM 1 MG TABLET GT PRN (17:50)
[2018-01-13] MEDS: ASCORBIC ACID 500 MG TABLET PO SCH (17:50)
[2018-01-13] MEDS: JEVITY 1.2 CAL 1,000 ML BOTTLE GT PRN (17:59)
--- NOTE | 2018-01-13 19:04 | NUR ---
EQUIPMENT ANALYST CLOSING NOTES PT IN BED. A/O X2. ON PORTEX 7 TRACH TO MECHANICAL VENT WITH SETTING ORDERED. SATTING WELL. ABLE TO MOUTH WORDS, BREATHING EVEN AND UNLABORED, TELEMETRY READS SINUS TACH HR 106. NO SIGNS OF PAIN. LFA G 18 WITH NS AT TKO. SITE CLEAR. ON GTUBE FEEDING, JEVITY 50 ML/HR, O RESIDUAL. NPO POST MIDNIGHT. HEAD OF BED ELEVATED. SIDE RAILS UP. CALL LIGHT WITHIN REACH. BED ALARM ON. CALL LIGHT WITHIN REACH. ALL NEEDS MET. PM CARE DONE. NO OTHER SIGNIFICANT CHANGE IN CONDITION. WILL ENDORSE TO NEXT SHIFT FOR FLOYD.
--- NOTE | 2018-01-13 19:25 | NUR ---
BLOCK CAPTAIN NOTES, PATIENT IN BED, ALERT AND ORIENTED X2, ABLE TO MOUTH WORDS AND COMMUNICATE NEEDS AND CONCERN, ON MECHANICAL VENTILATOR, TOLERATING SETTINGS WELL, NO SOB/ACUTE DISTRESS NOTED, LFA IV ACCESS INTACT AND PATENT, GTF RUNNING WELL AND PATIENT TOLERATED WELL, DRY AND CLEAN AT THIS TIME, ALL NEEDS PROVIDED AND ANTICIPATED, CALL LIGHT W/I REACH, WILL CONTINUE TO MONITOR CLOSELY.
[2018-01-13 20:00] VITALS: BP 131/71
--- NOTE | 2018-01-13 20:25 | NUR ---
INVENTORY CONTROL CLERK NOTES, HD DONE AT THIS TIME WITH 1L REMOVED, BP AT THIS TIME, 95/49, HR 78, PATIENT IN STABLE CONDITION, NO S/S OF PAIN OR DISCOMFORT AT THIS TIME, TOLERATED HD PROCESS WELL, WILL CONTINUE TO MONITOR CLOSELY.
[2018-01-13] MEDS: ATORVASTATIN 10 MG TABLET PO SCH (21:38)
[2018-01-14] VITALS: BP 144/83
[2018-01-14] MEDS: ONDANSETRON HCL/PF 4 MG/2 ML VIAL IVP PRN (01:29)
[2018-01-14 04:00] VITALS: BP 116/75
[2018-01-14 06:34] LABS: BASOPHILS % (AUTO) 0.5 % (0.0-2.0); EOSINOPHILS % (AUTO) 1.1 % (0.0-6.0); HEMATOCRIT 32 % (33-45); HEMOGLOBIN 9.9 g/dL (11.5-14.8); LYMPHOCYTES # (AUTO) 1.3 /CMM (0.8-4.8); LYMPHOCYTES % (AUTO) 14.1 % (20.0-44.0); MEAN CORPUSCULAR HGB CONC 31 g/dl (31.0-36.0); MEAN CORPUSCULAR VOLUME 83 fL (82-100); MONOCYTES # (AUTO) 0.5 /CMM (0.1-1.30); MONOCYTES % (AUTO) 5.5 % (2.0-12.0); NEUTROPHILS # (AUTO) 7.3 /CMM (1.8-8.9); NEUTROPHILS % (AUTO) 78.8 % (43.0-81.0); PLATELET COUNT (AUTO) 271 /CMM (150-450); RDW COEFFICIENT OF VARIATION 17.7 (11.5-15.0); RED BLOOD CELL COUNT(AUTO) 3.81 MIL/uL (4.0-5.2); WHITE BLOOD COUNT (AUTO) 9.3 K/uL (4.3-11.0)
--- NOTE | 2018-01-14 06:36 | NUR ---
N TELE NOTES, PATIENT IN BED, ALERT AND ORIENTED X2, ABLE TO MOUTH WORDS AND COMMUNICATE NEEDS AND CONCERN, ON MECHANICAL VENTILATOR, TOLERATING SETTINGS WELL, NO SOB/ACUTE DISTRESS NOTED, LFA IV ACCESS INTACT AND PATENT, GTF RUNNING WELL AND PATIENT TOLERATED WELL, DRY AND CLEAN AT THIS TIME, GOLYTELY ADMINISTER ORDERED, AND NPO FOR COLONOSCOPY THIS MORNING, NO SIGNIFICANT CHANGE OF CONDITION THROUGHOUT THE SHIFT, ALL NEEDS PROVIDED AND ANTICIPATED, CALL LIGHT W/I REACH, WILL ENDORSE CONTINUITY OF CARE TO ON COMING SHIFT.
[2018-01-14 07:06] LABS: CALCIUM, SERUM 8.9 mg/dL (8.5-10.1); CREATININE 0.6 mg/dL (0.6-1.3); MAGNESIUM 1.7 mg/dL (1.8-2.4); PHOSPHORUS 3.4 mg/dL (2.5-4.9); POTASSIUM 3.8 mmol/L (3.5-5.1)
[2018-01-14] MEDS: PANTOPRAZOLE 40 MG TABLET.DR PO SCH (07:30)
--- NOTE | 2018-01-14 07:30 | NUR ---
PREVENTIVE MAINTENANCE COORDINATOR AM NOTES RECEIVED PT IN BED. A/O X2. ON PORTEX 7 TRACH TO MECHANICAL VENT WITH SETTING ORDERED. SATTING 99%. ABLE TO MOUTH WORDS, BREATHING EVEN AND UNLABORED, TELEMETRY READS AFIB HR 90. NO SIGNS OF PAIN. LFA G 18 WITH NS AT TKO. SITE CLEAR. GTUBE CLAMP, NPO FOR SCHEDULED COLONOSCOPY. HEAD OF BED ELEVATED. SIDE RAILS UP. CALL LIGHT WITHIN REACH. BED ALARM ON. CALL LIGHT WITHIN REACH. WILL CONTINUE TO MONITOR PT CLOSELY.
[2018-01-14] MEDS: LEVALBUTEROL HCL NEB 1.25 MG/0.5 ML VIAL.NEB IH SCH ×3 (07:48→23:00)
[2018-01-14 08:00] VITALS: BP 117/69
[2018-01-14] MEDS: DOCUSATE SODIUM LIQ 100 MG/10 ML UDC GT SCH ×2 (08:23→16:18)
[2018-01-14] MEDS: FOLIC ACID 1 MG TABLET GT SCH (08:23)
[2018-01-14] MEDS: FUROSEMIDE 20 MG TABLET GT SCH (08:23)
[2018-01-14] MEDS: METOPROLOL TARTRATE 25 MG TABLET GT SCH ×2 (08:24→20:07)
[2018-01-14] MEDS: SIMETHICONE SUSP 40 MG/0.6 ML BOTTLE GT SCH ×4 (08:24→20:08)
[2018-01-14] MEDS: LACTOBACILLUS RHAMNOSUS GG 1 EACH CAP.SPRINK PO SCH ×2 (08:25→16:18)
[2018-01-14] MEDS: ENOXAPARIN SODIUM 30 MG/0.3 ML DISP.SYRIN SQ SCH (08:25)
[2018-01-14] MEDS: RIFAXIMIN 550 MG TABLET PO SCH ×2 (08:25→16:18)
[2018-01-14 09:14] LABS: ABG BASE EXCESS 10.1 mmol/L; ABG OXYGEN SATURATION 97.6 % (92.0-98.5); ABG PCO2 52.1 mmHg (35.0-45.0); ABG PH 7.451 (7.350-7.450); ABG PO2 110.1 mmHg (75.0-100.0); AaDO2 78.9 mmHg; COHb 0.3 % (0.5-1.5); MetHb 0.4 % (0.0-1.5); O2Hb 96.9 % (94.0-97.0); PEEP,BG 0 cm H2O; SITE, ABG Right Radial
--- NOTE | 2018-01-14 09:30 | NUR ---
AWNINGS MECHANIC NOTES ALL MEDS HELD FOR NOW INCLUDING LOVENOX.
[2018-01-14] MEDS: Magnesium 1GM/D5W 100ML PREMIX 100 ML IV SCH ×2 (11:20→13:18)
[2018-01-14] MEDS: LINEZOLID RTU BAG 600 MG in PREMIX 1 EA IV SCH ×2 (11:22→22:52)
--- NOTE | 2018-01-14 11:22 | NUR ---
MANAGER OPERATIONAL NOTES ZYVOX IV STARTED. 1120 - MAGNESIUM IV BAG #1 STARTED.
[2018-01-14 12:00] VITALS: BP 124/76
--- NOTE | 2018-01-14 12:45 | NUR ---
E COMMERCE RETAILER NOTES S/P COLONOSCOPY WITH BIOPSY BY DR. LEONARD
--- NOTE | 2018-01-14 12:45 | NUR ---
GENETIC TECHNOLOGIST NOTES RESUME DIET TOLERATED.
--- NOTE | 2018-01-14 13:18 | NUR ---
BRAZER ASSEMBLER NOTES MAGNESIUM IV BAG #2 STARTED. UNABLE TO GIVE SCHEDULED DUE TO ONGOING COLONOSCOPY.
[2018-01-14] MEDS: JEVITY 1.2 CAL 1,000 ML BOTTLE GT PRN (14:33)
[2018-01-14 16:00] VITALS: BP 120/79
[2018-01-14] MEDS: ASCORBIC ACID 500 MG TABLET PO SCH (16:18)
--- NOTE | 2018-01-14 18:39 | NUR ---
CO FOUNDER & CEO CLOSING NOTES PT IN BED. A/O X2. S/P COLONOSCOPY WITH BIOPSY TODAY BY DR. LEONARD. ON PORTEX 7 TRACH TO MECHANICAL VENT WITH SETTING ORDERED. SATTING WELL. ABLE TO MOUTH WORDS, BREATHING EVEN AND UNLABORED, TELEMETRY READS SINUS TACH HR 107. NO SIGNS OF PAIN. LFA G 18 WITH NS AT TKO. SITE CLEAR. ON GTUBE FEEDING, JEVITY 50 ML/HR, O RESIDUAL. HEAD OF BED ELEVATED. SIDE RAILS UP. CALL LIGHT WITHIN REACH. BED ALARM ON. CALL LIGHT WITHIN REACH. ALL NEEDS MET. PM CARE DONE. NO OTHER SIGNIFICANT CHANGE IN CONDITION. WILL ENDORSE TO NEXT SHIFT FOR FLOYD.
--- NOTE | 2018-01-14 19:30 | NUR ---
METAL CAN INSPECTOR NOTES, PATIENT IN BED, ALERT AND ORIENTED X2, ABLE TO MOUTH WORDS AND COMMUNICATE NEEDS AND CONCERN, ON MECHANICAL VENTILATOR, TOLERATING SETTINGS WELL, NO SOB/ACUTE DISTRESS NOTED, LFA IV ACCESS INTACT AND PATENT, GTF RUNNING WELL AND PATIENT TOLERATED WELL, DRY AND CLEAN AT THIS TIME, ALL NEEDS PROVIDED AND ANTICIPATED, S/P COLONOSCOPY AND BIOPSY, NO C/O DISCOMFORT , STILL C/O ABDOMINAL PAIN, WILL ADMINISTER MEDS ORDERED, CALL LIGHT W/I REACH, WILL CONTINUE TO MONITOR CLOSELY.
[2018-01-14 20:00] VITALS: BP 143/71
[2018-01-14] MEDS: ATORVASTATIN 10 MG TABLET PO SCH (21:10)
--- NOTE | 2018-01-14 21:26 | NUR ---
PT RECEIVED TRACH PTX 7 ON VENT. PT IS AWAKE AND ALERT NO RESP DISTRESS NOTED. SX'D FOR MOD AMT OF THICK YELLOW SECRETIONS. VENT ALARMS SET AND AUDIBLE. AMBU BAG AT BEDSIDE. VENT PLUGGED INTO RED OUTLET. WILL CONTINUE TO MONITOR. Addendum: 01/14/18 at 2128 by TAVON JORDAN RT Amended: Links added.
[2018-01-14] MEDS: LORAZEPAM 1 MG TABLET GT PRN (22:44)
[2018-01-15] VITALS: BP_SYST 116; BP_SYST 133; BP_DIAS 69; BP_DIAS 70
[2018-01-15] MEDS: ZOLPIDEM TARTRATE 5 MG TABLET PO PRN (00:50)
[2018-01-15 04:00] VITALS: BP 124/70
--- NOTE | 2018-01-15 06:30 | NUR ---
SALESPERSON CHILDREN'S SHOES NOTES, PATIENT IN BED, SLEEPING BUT EASILY AROUSABLE, ABLE TO MOUTH WORDS AND COMMUNICATE NEEDS AND CONCERN, ON MECHANICAL VENTILATOR, TOLERATING SETTINGS WELL, NO SOB/ACUTE DISTRESS NOTED, LFA IV ACCESS INTACT AND PATENT, GTF RUNNING WELL AND PATIENT TOLERATED WELL, DRY AND CLEAN AT THIS TIME, AND WELL REPOSITIONED, ALL NEEDS PROVIDED AND ANTICIPATED, NO C/O PAIN OR DISCOMFORT , , CALL LIGHT W/I REACH, WILL ENDORSE CONTINUITY OF CARE TO ONCOMING NURSE.
[2018-01-15 07:12] LABS: CALCIUM, SERUM 9.1 mg/dL (8.5-10.1); CREATININE 0.6 mg/dL (0.6-1.3); MAGNESIUM 2.2 mg/dL (1.8-2.4); POTASSIUM 4.2 mmol/L (3.5-5.1)
[2018-01-15] MEDS: LEVALBUTEROL HCL NEB 1.25 MG/0.5 ML VIAL.NEB IH SCH ×3 (07:23→23:20)
[2018-01-15 08:00] VITALS: BP 116/73
[2018-01-15] MEDS: DOCUSATE SODIUM LIQ 100 MG/10 ML UDC GT SCH ×2 (09:00→18:13)
[2018-01-15] MEDS: HYDROCODONE/APAP 5/325MG 1 EACH TABLET PO PRN (09:01)
[2018-01-15] MEDS: LACTOBACILLUS RHAMNOSUS GG 1 EACH CAP.SPRINK PO SCH (09:02)
[2018-01-15] MEDS: PANTOPRAZOLE 40 MG TABLET.DR PO SCH (09:02)
[2018-01-15] MEDS: FOLIC ACID 1 MG TABLET GT SCH (09:03)
[2018-01-15] MEDS: RIFAXIMIN 550 MG TABLET PO SCH (09:03)
[2018-01-15] MEDS: METOPROLOL TARTRATE 25 MG TABLET GT SCH ×2 (09:03→21:02)
[2018-01-15] MEDS: SIMETHICONE SUSP 40 MG/0.6 ML BOTTLE GT SCH ×4 (09:04→21:03)
[2018-01-15] MEDS: ENOXAPARIN SODIUM 30 MG/0.3 ML DISP.SYRIN SQ SCH (09:05)
[2018-01-15] MEDS: FUROSEMIDE 20 MG TABLET GT SCH (09:05)
[2018-01-15] MEDS ORDERED: MAG HYDROX/AL HYDROX/SIMETH 30 ML UDC GT PRN (11:45)
[2018-01-15 12:00] VITALS: BP 94/58
[2018-01-15] MEDS: ONDANSETRON HCL/PF 4 MG/2 ML VIAL IVP PRN (12:13)
[2018-01-15] MEDS ORDERED: MAG HYDROX/AL HYDROX/SIMETH 30 ML UDC PO PRN (15:30)
[2018-01-15] MEDS ORDERED: BARIUM SULFATE 98% 135 ML SUSP.RECON PO ONE (15:47)
[2018-01-15 16:00] VITALS: BP 112/57
[2018-01-15] MEDS: LORAZEPAM 1 MG TABLET GT PRN (16:01)
[2018-01-15] MEDS: ASCORBIC ACID 500 MG TABLET GT SCH (18:14)
[2018-01-15] MEDS: LACTOBACILLUS RHAMNOSUS GG 1 EACH CAP.SPRINK GT SCH (18:14)
[2018-01-15] MEDS: RIFAXIMIN 550 MG TABLET GT SCH (18:14)
[2018-01-15] MEDS: HYDROCODONE/APAP 5/325MG 1 EACH TABLET GT PRN ×2 (18:15→22:19)
[2018-01-15] MEDS: JEVITY 1.2 CAL 1,000 ML BOTTLE GT PRN (18:25)
--- NOTE | 2018-01-15 19:32 | NUR ---
RT NOTE: RECEIVED TRACH PT ON VENT ON NOTED SETTINGS. TRACH SIZE PORTEX 7. TRACH IS SECURED AND PATENT. RETAIL PHARMACY TECHNICIAN DONE. PT IS AWAKE AND ALERT. NO RESP DISTRESS NOTED. SX'D FOR MOD AMT OF THICK WHITE/YELLOW SECRETIONS. VENT ALARMS SET AND AUDIBLE. AMBU BAG AT BEDSIDE. VENT PLUGGED INTO RED OUTLET. Q8 BREATHING TX GIVEN MD ORDERED. WILL CONTINUE TO MONITOR.
[2018-01-15 20:00] VITALS: BP 122/70
[2018-01-15] MEDS: LINEZOLID 600 MG TABLET GT SCH (21:02)
[2018-01-15] MEDS: ACETAMINOPHEN 325 MG TABLET PO PRN (21:03)
[2018-01-15] MEDS: ATORVASTATIN 10 MG TABLET GT SCH (21:04)
[2018-01-16] VITALS (7 sets, daily range): BP systolic 93–139; BP diastolic 54–78
[2018-01-16] MEDS: HYDROCODONE/APAP 5/325MG 1 EACH TABLET GT PRN ×4 (03:10→22:08)
--- NOTE | 2018-01-16 07:30 | NUR ---
INSURANCE WRITER NOTE: RECEIVED PATIENT IN BED, AWAKE, ALERT AND ABLE TO STATE HER NEEDS. VENT-TRACH DEPENDENT SATURATING 100%. ON BUSINESS DEVELOPMENT PROFESSIONAL, A. FIB HR= 77. HOB ELEVATED. ON GT FEEDING OF JEVITY 1.2 @50CC/HR TOLERATING WELL. (L) FA IV LINE NOTED INTACT AND PATENT. BED LOCKED AND ALARMED AT ALL TIMES. ON CONTACT ISOLATION FOR VRE URINE. CALL LIGHT WITHIN REACH. NEEDS ANTICIPATED.
--- NOTE | 2018-01-16 07:41 | NUR ---
SURGEON CHIEF NOTE PT REMAINED STABLE DURING SHIFT. NO ACUTE DISTRESS NOTED. ALL NEEDS ATTENDED TO PROMPTLY. CALL LIGHT WITHIN REACH. WILL ENDORSE TO NEXT SHIFT FOR CONTINUITY OF CARE.
[2018-01-16] MEDS: LEVALBUTEROL HCL NEB 1.25 MG/0.5 ML VIAL.NEB IH SCH ×3 (08:07→23:02)
[2018-01-16] MEDS: PANTOPRAZOLE 40 MG TABLET.DR PO SCH (08:38)
[2018-01-16] MEDS: LACTOBACILLUS RHAMNOSUS GG 1 EACH CAP.SPRINK GT SCH ×2 (08:39→17:13)
[2018-01-16] MEDS: ENOXAPARIN SODIUM 30 MG/0.3 ML DISP.SYRIN SQ SCH (08:40)
[2018-01-16] MEDS: FOLIC ACID 1 MG TABLET GT SCH (08:40)
[2018-01-16] MEDS: LINEZOLID 600 MG TABLET GT SCH ×2 (08:40→21:04)
[2018-01-16] MEDS: SIMETHICONE SUSP 40 MG/0.6 ML BOTTLE GT SCH ×4 (08:41→21:04)
[2018-01-16] MEDS: RIFAXIMIN 550 MG TABLET GT SCH ×2 (08:41→17:13)
[2018-01-16] MEDS: DOCUSATE SODIUM LIQ 100 MG/10 ML UDC GT SCH ×2 (09:00→17:00)
[2018-01-16] MEDS: METOPROLOL TARTRATE 25 MG TABLET GT SCH ×2 (09:23→21:03)
[2018-01-16] MEDS: FUROSEMIDE 20 MG TABLET GT SCH (09:23)
--- NOTE | 2018-01-16 10:00 | NUR ---
MATERIAL CREW SUPERVISOR NOTE: SEEN AND FOLLOWED UP BY THE SPEECH THERAPIST AND ACCORDING TO HER, THE PATIENT IS NOT SAFE FOR SWALLOWING THIN LIQUID RIGHT NOW. NO ORAL GRATIFICATION WILL BE GIVEN AT THIS TIME. DR. MORALEZ MADE AWARE.
[2018-01-16] MEDS: JEVITY 1.2 CAL 1,000 ML BOTTLE GT PRN (14:40)
[2018-01-16 15:39] LABS: ALBUMIN 2.6 g/dL (3.4-5.0); BILIRUBIN,TOTAL 0.4 mg/dL (0.2-1.0); CALCIUM, SERUM 8.9 mg/dL (8.5-10.1); CREATININE 0.6 mg/dL (0.6-1.3); POTASSIUM 4.6 mmol/L (3.5-5.1); TOTAL PROTEIN, SERUM 7.5 g/dL (6.4-8.2)
[2018-01-16] MEDS: ACETAMINOPHEN 325 MG TABLET PO PRN (15:52)
[2018-01-16] MEDS: ASCORBIC ACID 500 MG TABLET GT SCH (17:13)
--- NOTE | 2018-01-16 19:20 | NUR ---
WELDER TOOL AND DIE NOTE: PATIENT IN BED, AWAKE, ALERT AND ABLE TO STATE HER NEEDS. VENT-TRACH DEPENDENT SATURATING 100%. ON FLASK CLEANER, A. FIB HR= 75. HOB ELEVATED. ON GT FEEDING OF JEVITY 1.2 @50CC/HR TOLERATING WELL. (L) FA IV LINE NOTED INTACT AND PATENT. BED LOCKED AND ALARMED AT ALL TIMES. ON CONTACT ISOLATION FOR VRE URINE. CALL LIGHT WITHIN REACH. REPORT GIVEN TO PM SHIFT NURSE FOR CONTINUITY OF CARE.
--- NOTE | 2018-01-16 19:30 | NUR ---
STRING STUDIES DIRECTOR NOTES RECEIVED ON BED A/O X3,ABLE TO MUMBLE HER NEEDS,ON T/V,SETTINGS TOLERATED WELL.O2 SAT 100%.AFIB 106 ON TELE MONITOR.SALINE LOCK LFA INTACT AND PATENT.ON GT FEEDING OF JEVITY 1.2 AT 50ML/HR RATE CONTINUOSLY.WITH 5ML RESIDUAL VOLUME NOTED.ISOLATION PRECAUTION FOR VRE URINE.VISITORS AT BEDSIDE.CALL LIGHT IN REACH,NEEDS ANTICIPATED.
[2018-01-16] MEDS: ATORVASTATIN 10 MG TABLET GT SCH (21:04)
[2018-01-16 22:05] LABS: BASOPHILS # (AUTO) 0.1 /CMM (0.0-0.2); BASOPHILS % (AUTO) 0.7 % (0.0-2.0); EOSINOPHILS % (AUTO) 1.8 % (0.0-6.0); HEMATOCRIT 31 % (33-45); HEMOGLOBIN 9.7 g/dL (11.5-14.8); LYMPHOCYTES # (AUTO) 1.4 /CMM (0.8-4.8); LYMPHOCYTES % (AUTO) 16.1 % (20.0-44.0); MEAN CORPUSCULAR HGB CONC 31 g/dl (31.0-36.0); MEAN CORPUSCULAR VOLUME 84 fL (82-100); MONOCYTES # (AUTO) 0.6 /CMM (0.1-1.30); MONOCYTES % (AUTO) 6.3 % (2.0-12.0); NEUTROPHILS # (AUTO) 6.7 /CMM (1.8-8.9); NEUTROPHILS % (AUTO) 75.1 % (43.0-81.0); PLATELET COUNT (AUTO) 244 /CMM (150-450); RED BLOOD CELL COUNT(AUTO) 3.73 MIL/uL (4.0-5.2); WHITE BLOOD COUNT (AUTO) 8.9 K/uL (4.3-11.0)
--- NOTE | 2018-01-16 22:08 | NUR ---
MEDICAL CLAIMS REPRESENTATIVE NOTES C/O ABDOMINAL PAIN 5/10 ON PAIN SCALE,NORCO 5/325MG 1TAB /GT GIVEN
[2018-01-16] MEDS: LORAZEPAM 1 MG TABLET GT PRN (22:56)
--- NOTE | 2018-01-16 22:56 | NUR ---
BEHAVIORAL SCIENCE CHAIR NOTES APPEARS ANXIOUS,ATIVAN 1MG/GT GIVEN
[2018-01-16] MEDS: Z GUARD REMEDY 2 OZ OINT TP PRN (22:59)
--- NOTE | 2018-01-16 23:15 | NUR ---
MS RN NOTES RT AT BEDSIDE ADMINISTERING BREATHING TREATMENT FOR SOB,SUCTIONED NEEDED.
--- NOTE | 2018-01-16 23:19 | NUR ---
CONTRACT LEAD NOTES ABDOMEN SLIGHTLY DISTENDED,GT FEEDING HELD FOR NOW
[2018-01-17] VITALS (7 sets, daily range): BP systolic 105–126; BP diastolic 54–78
--- NOTE | 2018-01-17 01:30 | NUR ---
COLORED LIQUID PLASTIC APPLIER NOTES STILL AWAKE,AMBIEN 5MG /GT GIVEN
[2018-01-17] MEDS: ZOLPIDEM TARTRATE 5 MG TABLET GT PRN ×2 (01:38→21:05)
[2018-01-17] MEDS: HYDROCODONE/APAP 5/325MG 1 EACH TABLET GT PRN ×4 (03:54→21:01)
--- NOTE | 2018-01-17 03:54 | NUR ---
OYSTER SHUCKER NOTES C/O ABDOMINAL PAIN 5/10 ON PAIN SCALE,NORCO 5/325MG,1TAB/GT GIVEN
--- NOTE | 2018-01-17 06:40 | NUR ---
TERRA COTTA ROOFER NOTES REFUSED TO RE START GT FEEDING.CALM AT THIS TIME.IN NO ACUTE DISTRESS.WILL ENDORSE TO DAY NURSE FOR FLOYD.
--- NOTE | 2018-01-17 07:30 | NUR ---
LOAD TESTER OPENING NOTES RECEIVED PATIENT IN STABLE CONDITION. IN NO APPARENT DISTRESS. BEDSIDE RAILS ARE UPX2. BED IS LOCKED AND LOWERED. CALL LIGHT IS WITHIN REACH. WILL CONTINUE TO MONITOR.
[2018-01-17] MEDS: LEVALBUTEROL HCL NEB 1.25 MG/0.5 ML VIAL.NEB IH SCH ×3 (08:12→23:36)
[2018-01-17] MEDS: DOCUSATE SODIUM LIQ 100 MG/10 ML UDC GT SCH ×2 (08:36→17:34)
[2018-01-17] MEDS: FUROSEMIDE 20 MG TABLET GT SCH (08:38)
[2018-01-17] MEDS: PANTOPRAZOLE 40 MG TABLET.DR PO SCH (08:38)
[2018-01-17] MEDS: METOPROLOL TARTRATE 25 MG TABLET GT SCH ×2 (08:39→21:02)
[2018-01-17] MEDS: LINEZOLID 600 MG TABLET GT SCH ×2 (08:39→21:00)
[2018-01-17] MEDS: LACTOBACILLUS RHAMNOSUS GG 1 EACH CAP.SPRINK GT SCH ×2 (08:39→17:34)
[2018-01-17] MEDS: RIFAXIMIN 550 MG TABLET GT SCH ×2 (08:39→17:33)
[2018-01-17] MEDS: FOLIC ACID 1 MG TABLET GT SCH (08:39)
[2018-01-17] MEDS: SIMETHICONE SUSP 40 MG/0.6 ML BOTTLE GT SCH ×4 (08:41→21:02)
[2018-01-17] MEDS: ENOXAPARIN SODIUM 30 MG/0.3 ML DISP.SYRIN SQ SCH (08:47)
[2018-01-17] MEDS ORDERED: LINE600T GT (11:42)
--- NOTE | 2018-01-17 14:25 | NUR ---
PT TRACHD ON MECHANICAL VENT. TXS GIVEN AND NO ADVERSE REACTION NOTED. SX PT T/O SHIFT. PT TRACH PATENT AND SECURE. AMBU BAG AT BEDSIDE. VENT PLUGGED INTO RED OUTLET. ALARMS ARE ON AND AUDIBLE. Addendum: 01/17/18 at 1428 by BENJI PUCKETT RT Amended: Links added.
[2018-01-17] MEDS: ASCORBIC ACID 500 MG TABLET GT SCH (17:34)
--- NOTE | 2018-01-17 18:30 | NUR ---
WIRELESS SALES CONSULTANT CLOSING NOTES PATIENT IN STABLE CONDITION. IN NO APPARENT DISTRESS. BEDSIDE RAILS ARE UPX2. BED IS LOCKED AND LOWERED. IV LINE IS INTACT AND PATENT. ALL NEEDS WERE MET. CALL LIGHT IS WITHIN REACH. WILL ENDORSE CARE TO RECEIVABLE CLERK NURSE FOR FLOYD.
[2018-01-17] MEDS: ATORVASTATIN 10 MG TABLET GT SCH (21:00)
[2018-01-18] VITALS: BP 108/77
[2018-01-18] MEDS: JEVITY 1.2 CAL 1,000 ML BOTTLE GT PRN (01:41)
[2018-01-18] MEDS: HYDROCODONE/APAP 5/325MG 1 EACH TABLET GT PRN ×4 (01:42→21:16)
[2018-01-18 04:00] VITALS: BP 115/77
--- NOTE | 2018-01-18 07:15 | NUR ---
HOSPICE DIRECTOR OPENING NOTES RECEIVED PATIENT IN BED.SLEEPING.TRACH VENT DEPENDANT.TOLERATING WELL WITH SETTING ORDERED .ON TELEMONITOR SINUS RHYTHM OF 71 WITH OCCASIONALLY UNCONTROLLED AFIB.ON GT FEEDING OFF JEVITY 1.2 @50CC/HR.IV ON LFA #18.BED IS LOCKED AND IN LOW POSITION.SRX3.CALL LIGHT IN REACH.SAFETY MAINTAINED .WILL CONTINUE TO MONITOR.
[2018-01-18] MEDS: LEVALBUTEROL HCL NEB 1.25 MG/0.5 ML VIAL.NEB IH SCH ×2 (07:50→16:01)
[2018-01-18 08:00] VITALS: BP 120/67
[2018-01-18] MEDS: RIFAXIMIN 550 MG TABLET GT SCH ×2 (08:35→17:29)
[2018-01-18] MEDS: FOLIC ACID 1 MG TABLET GT SCH (08:35)
[2018-01-18] MEDS: LINEZOLID 600 MG TABLET GT SCH ×2 (08:36→21:08)
[2018-01-18] MEDS: FUROSEMIDE 20 MG TABLET GT SCH (08:36)
[2018-01-18] MEDS: DOCUSATE SODIUM LIQ 100 MG/10 ML UDC GT SCH ×2 (08:36→17:29)
[2018-01-18] MEDS: LACTOBACILLUS RHAMNOSUS GG 1 EACH CAP.SPRINK GT SCH ×2 (08:36→17:29)
[2018-01-18] MEDS: ENOXAPARIN SODIUM 30 MG/0.3 ML DISP.SYRIN SQ SCH (08:40)
[2018-01-18] MEDS: SIMETHICONE SUSP 40 MG/0.6 ML BOTTLE GT SCH ×4 (08:54→21:08)
[2018-01-18] MEDS: METOPROLOL TARTRATE 25 MG TABLET GT SCH ×2 (08:54→21:08)
[2018-01-18] MEDS: PANTOPRAZOLE 40 MG/PACK PACK GT SCH (08:55)
--- NOTE | 2018-01-18 09:00 | NUR ---
BOILER ASSISTANT OPERATOR NOTES CHANGED PROTONIX TAB TO PROTONIX GRANULES TO GIVE VIA GT.DISCARDED THE TABLET.
[2018-01-18 12:00] VITALS: BP 112/74
--- NOTE | 2018-01-18 15:00 | NUR ---
BOX TENDER NOTES SEEN BY FROM GI,NOTIFIED THAT PATIENT'S ABDOMEN IS BLOATED AND BURPING MANY TIMES.NO RESIDUAL NOTED.HAS SOFT BM.GOT NEW ORDER.CONTINUE TO MONITOR.
[2018-01-18 16:00] VITALS: BP 115/80
[2018-01-18] MEDS: ASCORBIC ACID 500 MG TABLET GT SCH (17:29)
--- NOTE | 2018-01-18 19:00 | NUR ---
PRODUCTION SORTER SHIFT END NOTES PATIENT IN BED.AWAKE.TRACH VENT DEPENDANT.TOLERATING WELL WITH SETTING ORDERED .NO SOB NO DISTRESS NOTICED DURING CARE.ON TELEMONITOR SINUS RHYTHM OF 84 WITH OCCASIONALLY UNCONTROLLED AFIB.ON GT FEEDING OFF JEVITY 1.2 @50CC/HR.NO RESIDUAL NOTED DURING THE SHIFT.IV ON LFA #18.BED IS LOCKED AND IN LOW POSITION.SRX3.CALL LIGHT IN REACH.SAFETY MAINTAINED .ALL NEEDS MET.WILL ENDORSE TO PM NURSE FOR FLOYD.
--- NOTE | 2018-01-18 19:20 | NUR ---
ACCOUNTS ADMINISTRATOR OPENING NOTES RECEIVED REPORT FROM AERLE GARRIDO. PATIENT A/A/O X3, ABLE TO VERBALIZE NEEDS. BREATHING EVEN & UNLABORED W/ TRACH INTACT & VENT SETTINGS AC 16, TV 450, FI02 35%, PEEP 0. ON TELE W/ SINUS TACH W/ OCCASIONAL A-FIB, HR 105. DENIES ANY CHEST PAIN OR DISCOMFORT @ THIS TIME. NO RESPIRATORY DISTRESS NOTED. LEFT FOREARM IV #18 INTACT & PATENT W/ DRESSING CDI, SALINE LOCKED. G-TUBE FLUSHING WELL W/ NO RESIDUAL NOTED @ THIS TIME. GTF JEVITY 1.2 @ 50 ML/HR. SKIN WARM, DRY & INTACT. DENIES ANY PAIN OR DISCOMFORT. DENIES N/V/D. SAFETY MEASURES IN PLACE & CALL LIGHT WITHIN REACH. HOB ELEVATED FOR ASPIRATION PRECAUTIONS. FAMILY @ BEDSIDE. WILL CONTINUE TO MONITOR.
[2018-01-18 20:00] VITALS: BP_SYST 101; BP_SYST 127; BP_DIAS 77; BP_DIAS 88
[2018-01-18] MEDS: ATORVASTATIN 10 MG TABLET GT SCH (21:08)
[2018-01-18] MEDS: LORAZEPAM 1 MG TABLET GT PRN (22:50)
[2018-01-19] VITALS: BP 105/58
[2018-01-19] MEDS: LEVALBUTEROL HCL NEB 1.25 MG/0.5 ML VIAL.NEB IH SCH ×3 (00:09→15:26)
[2018-01-19] MEDS: JEVITY 1.2 CAL 1,000 ML BOTTLE GT PRN (02:19)
[2018-01-19 04:00] VITALS: BP 120/67
[2018-01-19] MEDS: HYDROCODONE/APAP 5/325MG 1 EACH TABLET GT PRN ×2 (05:07→12:57)
[2018-01-19 08:00] VITALS: BP 125/68
--- NOTE | 2018-01-19 08:00 | NUR ---
TELE1/RN AM SHIFT INITIAL NOTES RECEIVED AT AWAKE IN BED, NO ACUTE RESPIRATORY DISTRESS NOTED. PT A/O X 3, CALM AT THIS TIME. ON VENTILATOR SUPPORT WITH RATES SET PRESCRIBED, SATURATING @ 100%, LUNG SOUNDS CLEAR. ON TELE WITH SINUS TACHY, HR 106. IV SITE FLUSHED, PATENT WITH NO S/S OF INFECTION, SL. WITH ON GOING GT FEEDING @ 50CC/HR, NO GASTRIC RESIDUAL NOTED, FLUSHED. PT IS COMFORTABLE AT THIS TIME. SCHEDULED AM MEDS TO BE GIVEN. CL WITHIN REACHED, SAFETY MAINTAINED AND ISOLATION OBSERVED. ON GOING MONITORING.
[2018-01-19] MEDS: ENOXAPARIN SODIUM 30 MG/0.3 ML DISP.SYRIN SQ SCH (09:15)
[2018-01-19] MEDS: RIFAXIMIN 550 MG TABLET GT SCH ×2 (09:16→18:05)
[2018-01-19] MEDS: PANTOPRAZOLE 40 MG/PACK PACK GT SCH (09:16)
[2018-01-19] MEDS: METOPROLOL TARTRATE 25 MG TABLET GT SCH ×2 (09:16→20:46)
[2018-01-19] MEDS: FOLIC ACID 1 MG TABLET GT SCH (09:16)
[2018-01-19] MEDS: FUROSEMIDE 20 MG TABLET GT SCH (09:16)
[2018-01-19] MEDS: DOCUSATE SODIUM LIQ 100 MG/10 ML UDC GT SCH (09:16)
[2018-01-19] MEDS: LACTOBACILLUS RHAMNOSUS GG 1 EACH CAP.SPRINK GT SCH ×2 (09:16→18:05)
[2018-01-19] MEDS: LINEZOLID 600 MG TABLET GT SCH ×2 (09:16→20:46)
[2018-01-19] MEDS: SIMETHICONE SUSP 40 MG/0.6 ML BOTTLE GT SCH ×4 (09:17→20:55)
[2018-01-19 12:00] VITALS: BP 127/75
[2018-01-19] MEDS: Z GUARD REMEDY 2 OZ OINT TP PRN (12:58)
--- NOTE | 2018-01-19 13:45 | NUR ---
TELE1/RN ROUNDS - DR. LEONARD UPDATED PT'S CONDITION. PT SEEN & EXAMINED BY DR. LEONADR WITH FAMILY MEMBERS AT BEDSIDE. NO NEW ORDERS RECEIVED AT THIS TIME. MONITORING CONTINUED.
[2018-01-19 16:00] VITALS: BP 138/83
--- NOTE | 2018-01-19 17:00 | NUR ---
TELE1/RN AFTERNOON ROUNDS PM CARE PROVIDED, NO ACUTE CHANGE OF CONDITION. ON GOING MONITORING.
[2018-01-19] MEDS: ASCORBIC ACID 500 MG TABLET GT SCH (18:05)
--- NOTE | 2018-01-19 19:30 | NUR ---
TELE1/RN AM SHIFT END NOTES ALL NEEDS MET. NO ACUTE CHANGE OF CONDITION NOTED DURING THE SHIFT. PT ENDORSED TO PM NURSE TO CONTINUE CARE. ALSO ENDORSED TO COLLECT URINE FOR CULTURE. CL WITHIN REACHED, SAFETY MAINTAINED AND ISOLATION OBSERVED.
--- NOTE | 2018-01-19 19:30 | NUR ---
PERSONAL CLOTHING LAUNDRY AIDE NOTES, RECEIVED PATIENT IN BED, AWAKE ALERT AND ORIENTED, ABLE TO COMMUNICATE NEEDS AND CONCERNS, ON VENT SUPPORT TOLERATING SETTINGS WELL, BURPING CONSTANTLY, NO DISCOMFORT OR PAIN AT THIS TIME, STOMACH SOF AND NONDISTENDED, GTF RUNNING WELL AND PATIENT TOLERATED WELL, LEFT FA IV ACCESS PATENT AND INTACT, FAMILY AT BEDSIDE, ALL NEEDS PROVIDED AND ATTEMPTED, DRY AND CLEAN AT THIS TIME, REPOSITION PROVIDED, CALL LIGHT W/I REACH, WILL CONTINUE TO MONITOR CLOSELY.
[2018-01-19 20:00] VITALS: BP 127/88
[2018-01-19] MEDS: LORAZEPAM 1 MG TABLET GT PRN (20:54)
[2018-01-19] MEDS: ATORVASTATIN 10 MG TABLET GT SCH (21:02)
--- NOTE | 2018-01-19 22:00 | NUR ---
LAUNDRY PRESS OPERATOR NOTES, WHEN LETTING PATIENT KNOW ABOUT THE PICTURES WE TOOK EVERY SATURDAY PROTOCOL, SHE REFUSED AND STATED THAT SHE DIDNT WANT US TO TAKE PICTURES, EXPLAINED RISKS AND BENEFITS AND THE INDICATION FOR IT, STILL REFUSED, WILL CONTINUE TO MONITOR CLOSELY.
[2018-01-20] VITALS (8 sets, daily range): BP systolic 95–142; BP diastolic 53–80
[2018-01-20] MEDS: LEVALBUTEROL HCL NEB 1.25 MG/0.5 ML VIAL.NEB IH SCH ×4 (00:16→23:30)
[2018-01-20] MEDS: HYDROCODONE/APAP 5/325MG 1 EACH TABLET GT PRN ×3 (02:28→20:22)
--- NOTE | 2018-01-20 06:40 | NUR ---
ADVERTISEMENT DISTRIBUTOR NOTES, PATIENT IN BED, AWAKE ALERT AND ORIENTED, ABLE TO COMMUNICATE NEEDS AND CONCERNS, ON VENTILATOR SUPPORT TOLERATING SETTINGS WELL, SUCTIONING PROVIDED AT THIS TIME, NO DISCOMFORT OR PAIN AT THIS TIME, STOMACH SOFT AND NONDISTENDED, GTF RUNNING WELL AND PATIENT TOLERATED WELL, HOB ELEVATED AT ALL TIMES FOR ASPIRATION PRECAUTIONS LEFT FA IV ACCESS PATENT AND INTACT, ALL NEEDS PROVIDED AND ATTEMPTED, DRY AND CLEAN AT THIS TIME, REPOSITION PROVIDED, NO SIGNIFICANT CHANGE OF CONDITION THROUGHOUT THE SHIFT, BED LOCLED AND IN PROPER POSITION, CALL LIGHT W/I REACH, WILL ENDORSE CONTINUITY OF CARE TO ONCOMING NURSE.
--- NOTE | 2018-01-20 09:45 | NUR ---
Pt in bed awake, alert, oriented x2, thrach in place suctions prn, gt feeding continues and tolerated, reposition for comfort, ST on the monitor, no s/s of complications.
[2018-01-20] MEDS: PANTOPRAZOLE 40 MG/PACK PACK GT SCH (11:51)
[2018-01-20] MEDS: RIFAXIMIN 550 MG TABLET GT SCH ×2 (11:51→18:38)
[2018-01-20] MEDS: METOPROLOL TARTRATE 25 MG TABLET GT SCH ×2 (11:52→20:23)
[2018-01-20] MEDS: FOLIC ACID 1 MG TABLET GT SCH (11:52)
[2018-01-20] MEDS: LINEZOLID 600 MG TABLET GT SCH ×2 (11:52→20:21)
[2018-01-20] MEDS: FUROSEMIDE 20 MG TABLET GT SCH (11:52)
[2018-01-20] MEDS: LACTOBACILLUS RHAMNOSUS GG 1 EACH CAP.SPRINK GT SCH ×2 (11:53→18:34)
[2018-01-20] MEDS: ENOXAPARIN SODIUM 30 MG/0.3 ML DISP.SYRIN SQ SCH (11:55)
[2018-01-20] MEDS: SIMETHICONE SUSP 40 MG/0.6 ML BOTTLE GT SCH ×4 (11:56→20:23)
--- NOTE | 2018-01-20 14:00 | NUR ---
RN notes: pt in bed repositioned for comfort, incontinent of B/B, gt feeding tolerated well, no sob, no respiratory distress.
[2018-01-20] MEDS: ASCORBIC ACID 500 MG TABLET GT SCH (18:34)
[2018-01-20] MEDS: LORAZEPAM 1 MG TABLET GT PRN (18:38)
--- NOTE | 2018-01-20 18:40 | NUR ---
Pt c/o pain to abdomen by 1430 was medicated with norco 5/325 gt /, now pain /, also medicated with ativan 1 mg gt for anxiety, Dr Sun was called to [phone] by [phone] awaiting for call back to report pt's abdominal pain at gt site, gt site clean no drainage and no s/s of infection, but pt feels pain at gt site,and was clean, reposition for comfort.
--- NOTE | 2018-01-20 19:30 | NUR ---
SCALES INSPECTOR NOTES, RECEIVED PATIENT IN BED, AWAKE ALERT AND ORIENTED, ABLE TO COMMUNICATE NEEDS AND CONCERNS, ON VENTILATOR SUPPORT TOLERATING SETTINGS WELL, O2 SATURATION 100% AT THIS TIME , C/O PAIN AT THIS TIME, WILL ADMINISTER PAIN MEDICATION ORDERED, STOMACH SOFT AND NONDISTENDED, GTF RUNNING WELL AND PATIENT TOLERATED WELL, LEFT FA IV ACCESS PATENT AND INTACT S/L, ALL NEEDS PROVIDED AND ATTEMPTED, DRY AND CLEAN AT THIS TIME, REPOSITION PROVIDED, BED LOCLED AND PROPER POSITION, CALL LIGHT W/I REACH, WILL CONTINUE TO MONITOR CLOSELY.
[2018-01-20] MEDS: ATORVASTATIN 10 MG TABLET GT SCH (21:01)
[2018-01-21] VITALS: BP 142/80
[2018-01-21] MEDS: LEVALBUTEROL HCL NEB 1.25 MG/0.5 ML VIAL.NEB IH SCH ×4 (00:30→23:37)
[2018-01-21 04:00] VITALS: BP 118/52
[2018-01-21] MEDS: JEVITY 1.2 CAL 1,000 ML BOTTLE GT PRN (06:02)
[2018-01-21] MEDS: HYDROCODONE/APAP 5/325MG 1 EACH TABLET GT PRN ×3 (06:03→21:58)
--- NOTE | 2018-01-21 06:48 | NUR ---
BUTADIENE CONVERTER OPERATOR NOTES, PATIENT AWAKE ALERT AND ORIENTED, ABLE TO COMMUNICATE NEEDS AND CONCERNS, ON VENTILATOR SUPPORT TOLERATING SETTINGS WELL, O2 SATURATION 100% AT THIS TIME , C/O PAIN EARLIER AND NORCO ADMINISTERED ORDERED, GTF RUNNING WELL AND PATIENT TOLERATED WELL, LEFT FA IV ACCESS PATENT AND INTACT S/L, ALL NEEDS PROVIDED AND ATTEMPTED, DRY AND CLEAN AT THIS TIME, REPOSITION PROVIDED, BED LOCKED AND PROPER POSITION, CALL LIGHT W/I REACH, NO SIGNIFICANT CHANGE OF CONDITION DURING THE SHIFT, WILL ENDORSED CONTINUITY OF CARE TO ONCOMING NURSE.
--- NOTE | 2018-01-21 07:35 | NUR ---
RN NOTE RECEIVED PATIENT IN BED, AWAKE ALERT AND ORIENTED WATCHING T.V, SHE IS ABLE TO COMMUNICATE AND MOUTH HER WORDS TO VERBALIZE NEEDS, ON VENTILATOR SUPPORT WITH APPROPRIATE SETTINGS AND TOLERATING WELL. GTF INTACT AND PATENT WITH ONGOING FEEDINGS RUNNING WELL WITH NO RESIDUALS NOTED. LEFT FA IV SITE INTACT AND PATENT. BED LOCKED AND LOW POSITION, ALL ISOLATION PRECAUTIONS DONE, PLACED CALL LIGHT WITH IN REACH, WILL CONTINUE TO MONITOR.
[2018-01-21 08:00] VITALS: BP 105/78
[2018-01-21] MEDS: RIFAXIMIN 550 MG TABLET GT SCH ×2 (08:28→16:04)
[2018-01-21] MEDS: FUROSEMIDE 20 MG TABLET GT SCH (08:28)
[2018-01-21] MEDS: LACTOBACILLUS RHAMNOSUS GG 1 EACH CAP.SPRINK GT SCH ×2 (08:29→16:04)
[2018-01-21] MEDS: FOLIC ACID 1 MG TABLET GT SCH (08:29)
[2018-01-21] MEDS: PANTOPRAZOLE 40 MG/PACK PACK GT SCH (08:29)
[2018-01-21] MEDS: LINEZOLID 600 MG TABLET GT SCH ×2 (08:29→21:53)
[2018-01-21] MEDS: ENOXAPARIN SODIUM 30 MG/0.3 ML DISP.SYRIN SQ SCH (08:30)
[2018-01-21] MEDS: SIMETHICONE SUSP 40 MG/0.6 ML BOTTLE GT SCH ×4 (08:30→21:54)
[2018-01-21] MEDS: METOPROLOL TARTRATE 25 MG TABLET GT SCH ×2 (08:35→21:54)
[2018-01-21] MEDS: LORAZEPAM 1 MG TABLET GT PRN (10:30)
[2018-01-21 12:00] VITALS: BP 120/85
--- NOTE | 2018-01-21 13:55 | NUR ---
RN NOTE 89 YEAR OLD MALE DISCHARGED TO [facility] IN STABLE CONDITION. COMPLIANT WITH MEDICATIONS, COOPERATIVE WITH TREATMENT PLANS. TREATMENT PLANS AND MEDICAL PLANS DEFERRED FOR CONTINUAL MONITORING. EDUCATED PATIENT ABOUT AFTER CARE PLAN AND COPIES PROVIDED WITH PATIENT AND AMBULANCE. RETURNED PERSONAL BELONGINGS TO PATIENT. MEDICATIONS RECONCILED, REPORT GIVEN TO DEDE GARRIDO AT [facility] FOR CONTINUITY OF CARE. PATIENT UNABLE TO SIGN DISCHARGE PAPERWORK, BUT WAS ABLE TO GET SECOND RN JANEL TO WITNESS AND SIGN. WOUND PICTURES TAKEN AND DOCUMENTED IN CHART. PATIENTS WAS NOTIFIED ABOUT DISCHARGE AND TRANSFER TO FACILITY. PATIENT LEFT THE UNIT AT 1355 VIA AMBULANCE. Addendum: 01/21/18 at 1858 by ELINA MOLINA RN RADHIKA NOTE DISREGARD PREVIOUS DOCUMENTATION AT 1355
[2018-01-21 16:00] VITALS: BP 121/62
[2018-01-21] MEDS: ASCORBIC ACID 500 MG TABLET GT SCH (16:30)
--- NOTE | 2018-01-21 19:03 | NUR ---
RN NOTE PATIENT REMAINED STABLE THROUGHOUT SHIFT. NO DISTRESS OR DISCOMFORT NOTED. WILL ENDORSE TO NEXT SHIFT TO COLLECT URINE (URINE CULTURE) BEFORE MIDNIGHT AND SEND IT TO LAB.
--- NOTE | 2018-01-21 19:30 | NUR ---
TELE/RN NOTES: RECEIVED PT. IN BED W/ HOB ELEVATED. A/O X 3. ABLE TO MOUTH WORDS. ON MECHANICAL VENTILATOR TOLERATING SETTINGS WELL W/ NO S/S OF FACIAL GRIMACES OR MOANING NOTED. W/ GTF TOLERATING WELL W/ NO RESIDUAL NOTED. ON TELE MONITOR W/ ST @ 110. HAS LFA G 18 PATENT AND INTACT W/ NO RESIDUAL NOTED. CALL LIGHT W/REACH. SUCTION PRN. WILL CONTINUE TO MONITOR.
[2018-01-21 20:00] VITALS: BP 123/67
[2018-01-21] MEDS: ATORVASTATIN 10 MG TABLET GT SCH (21:53)
[2018-01-22] VITALS: BP 107/54
--- NOTE | 2018-01-22 | NUR ---
RELIABILITY SPECIALIST NOTES: INSERTED A F/C TO GET A URINE CULTURE. WAITING FOR URINE.
[2018-01-22] MEDS: HYDROCODONE/APAP 5/325MG 1 EACH TABLET GT PRN ×4 (02:50→23:38)
[2018-01-22 04:00] VITALS: BP 128/66
[2018-01-22] MEDS: JEVITY 1.2 CAL 1,000 ML BOTTLE GT PRN (06:17)
[2018-01-22 06:36] LABS: BASOPHILS % (AUTO) 0.1 % (0.0-2.0); HEMATOCRIT 34 % (33-45); HEMOGLOBIN 10.3 g/dL (11.5-14.8); LYMPHOCYTES # (AUTO) 1.7 /CMM (0.8-4.8); LYMPHOCYTES % (AUTO) 17.1 % (20.0-44.0); MEAN CORPUSCULAR HGB CONC 31 g/dl (31.0-36.0); MEAN CORPUSCULAR VOLUME 84 fL (82-100); MONOCYTES # (AUTO) 0.5 /CMM (0.1-1.30); MONOCYTES % (AUTO) 4.5 % (2.0-12.0); NEUTROPHILS # (AUTO) 7.8 /CMM (1.8-8.9); NEUTROPHILS % (AUTO) 77.3 % (43.0-81.0); PLATELET COUNT (AUTO) 228 /CMM (150-450); RDW COEFFICIENT OF VARIATION 18.1 (11.5-15.0); RED BLOOD CELL COUNT(AUTO) 4.04 MIL/uL (4.0-5.2); WHITE BLOOD COUNT (AUTO) 10.1 K/uL (4.3-11.0)
[2018-01-22 06:58] LABS: CREATININE 0.7 mg/dL (0.6-1.3); MAGNESIUM 1.8 mg/dL (1.8-2.4); PHOSPHORUS 3.6 mg/dL (2.5-4.9); POTASSIUM 4.4 mmol/L (3.5-5.1)
--- NOTE | 2018-01-22 07:05 | NUR ---
RN NOTES: RECEIVED PT ON BED, A/Ox3, PT MOUTH WORDS , VENT/ TRACH DEPENDENT, TOLERATING CURRENT VENT SETTING WELL, TRACH CARE DONE, ON TELE ST, HR IN 100'S , TOLERATING TF JEVITY AT 50CC/HR , NO RESIDUAL NOTED, HOB ELEVATED, , LFA IV SITE G 18 PATENT AND INTACT, SR UPx3, CALL LIGHT WITHIN EASY REACH, BED LOCKED AND IN LOWEST POSITION , CONTINUE TO MONITOR.
--- NOTE | 2018-01-22 07:24 | NUR ---
TELE/RN NOTES: NOT IN ANY ACUTE DISTRESS. REPORT GIVEN TO AM NURSE FOR FLOYD.
[2018-01-22] MEDS: LEVALBUTEROL HCL NEB 1.25 MG/0.5 ML VIAL.NEB IH SCH ×3 (07:38→23:48)
[2018-01-22 08:00] VITALS: BP 100/66
[2018-01-22] MEDS: RIFAXIMIN 550 MG TABLET GT SCH ×2 (08:03→16:35)
[2018-01-22] MEDS: FOLIC ACID 1 MG TABLET GT SCH (08:03)
[2018-01-22] MEDS: ENOXAPARIN SODIUM 30 MG/0.3 ML DISP.SYRIN SQ SCH (08:05)
[2018-01-22] MEDS: METOPROLOL TARTRATE 25 MG TABLET GT SCH ×2 (08:06→21:26)
[2018-01-22] MEDS: LACTOBACILLUS RHAMNOSUS GG 1 EACH CAP.SPRINK GT SCH ×2 (08:07→16:35)
[2018-01-22] MEDS: FUROSEMIDE 20 MG TABLET GT SCH (08:10)
[2018-01-22] MEDS: LINEZOLID 600 MG TABLET GT SCH ×2 (08:10→21:26)
[2018-01-22] MEDS: PANTOPRAZOLE 40 MG/PACK PACK GT SCH (08:11)
[2018-01-22] MEDS: SIMETHICONE SUSP 40 MG/0.6 ML BOTTLE GT SCH ×4 (08:13→21:26)
[2018-01-22 12:00] VITALS: BP 117/66
--- NOTE | 2018-01-22 14:00 | NUR ---
RN NOTES PT STABLE , SUPPORTIVE FAMILY AT THE BEDSIDE, CONTINUE TO MONITOR .
[2018-01-22] MEDS: LORAZEPAM 1 MG TABLET GT PRN (15:36)
[2018-01-22 16:00] VITALS: BP 105/69
[2018-01-22] MEDS: ASCORBIC ACID 500 MG TABLET GT SCH (16:35)
[2018-01-22] MEDS: Z GUARD REMEDY 2 OZ OINT TP PRN (16:37)
--- NOTE | 2018-01-22 18:33 | NUR ---
RN NOTES PT EATING HER DINER , ON 2L O2 N/C , NO SOB NOTED, O2 SAT 94%, KAREN DRANING TO GRAVITY , SR UP x3, CALL LIGHT WITHIN EASY REACH, WILL ENDORSE TO PM NURSE FOR FLOYD . Addendum: 01/22/18 at 1835 by BARRY CANTU RN PLEASE DISRGARD ABOVE CHARTING , CHARTED ON WRONG PT
--- NOTE | 2018-01-22 18:35 | NUR ---
RN NOTES PT STABLE , WOUND NOTED ON LABIAL , WOUND CONSULT ORDERED , TOLERATING CURRENT VENT SETTING WELL, NO DISTRESS NOTED, NO TF RESIDUAL NOTED, L FA IV SITE CDI, SR UP x3, WILL ENDOSE TO PALS NURSE NURSE FOR FLOYD
[2018-01-22] MEDS: ACETAMINOPHEN 325 MG TABLET PO PRN (19:03)
--- NOTE | 2018-01-22 19:20 | NUR ---
ELECTRIC TRACK SWITCH MAINTAINER OPENING NOTES RECEIVED REPORT FROM KATHY GARRIDO. PATIENT A/A/O X3, ABLE TO MOUTH WORDS & MAKE NEEDS KNOWN. BREATHING EVEN & UNLABORED W/ TRACH INTACT & VENT SETTINGS AC 16, TV 450, FI02 35%, PEEP 0. ON TELE W/ SINUS TACH, HR 104. DENIES ANY CHEST PAIN OR DISCOMFORT @ THIS TIME. NO RESPIRATORY DISTRESS NOTED. LEFT FOREARM IV #18 INTACT & PATENT W/ DRESSING CDI, SALINE LOCKED. G-TUBE FLUSHING WELL W/ NO RESIDUAL NOTED @ THIS TIME. GTF JEVITY 1.2 @ 50 ML/HR. SKIN WARM, DRY & INTACT. DENIES ANY PAIN OR DISCOMFORT. DENIES N/V/D. SAFETY MEASURES IN PLACE & CALL LIGHT WITHIN REACH. HOB ELEVATED FOR ASPIRATION PRECAUTIONS. WILL CONTINUE TO MONITOR.
[2018-01-22 20:00] VITALS: BP 131/71
--- NOTE | 2018-01-22 21:00 | NUR ---
HUMAN SERVICES MANAGER INITIAL NOTE PT IS IN BED AWAKE AND ALERT, ABLE TO MOUTH WORDS. PT IS ON VENT, TOLERATING SETTINGS WELL. NO SIGNS OF SOB OR DISTRESS, BREATHING EVENLY AND UNLABORED. DENIES PAIN AT THIS TIME. JONES CATHETER IS INTACT AND PATENT. TUBE FEEDING RUNNING AT 50 ML/HR. IV ACCESS IS INTACT AND PATENT ON SALINE LOCK. BED IS IN LOW AND LOCKED POSITION, CALL LIGHT WITHIN REACH. WILL CONTINUE TO MONITOR PT Addendum: 01/23/18 at 0632 by MOSES BACK DOCUMENTED JONES CATH ON INCORRECT PT. PT IS IN DIAPER, INCONTINENT
[2018-01-22] MEDS: ATORVASTATIN 10 MG TABLET GT SCH (21:26)
[2018-01-23 00:11] VITALS: BP 128/64
[2018-01-23] MEDS: ZOLPIDEM TARTRATE 5 MG TABLET GT PRN ×2 (01:20→21:05)
[2018-01-23 04:00] VITALS: BP 127/70
[2018-01-23] MEDS: JEVITY 1.2 CAL 1,000 ML BOTTLE GT PRN (05:32)
--- NOTE | 2018-01-23 06:27 | NUR ---
CANDLE MOLDER CLOSING NOTE PT IS IN BED RESTING. NO SIGNS OF SOB OR DISTRESS, TOLERATING VENT SETTINGS WELL. G-TUBE IS INTACT WITH FEEDING AT 50 ML/HR.NO ACUTE CHANGES THROUGHOUT THE SHIFT. ALL NEEDS WERE ANTICIPATED AND MET. BED IS IN LOW AND LOCKED POSITION, CALL LIGHT WITHIN REACH. WILL ENDORSE TO DAYSHIFT.
[2018-01-23] MEDS: LEVALBUTEROL HCL NEB 1.25 MG/0.5 ML VIAL.NEB IH SCH ×3 (07:22→23:57)
--- NOTE | 2018-01-23 07:39 | NUR ---
1ST PRESSMAN OPENING NOTES RECEIVED PATIENT IN BED ALERT AND ORIENTED X3, ON TRACH WITH VENT SETTINGS AC 16, TV 450, FI02 35%, PEEP 0. ABLE TO MOUTH WORDS & MAKE NEEDS KNOWN ON TELE MONITOR PER READING SINUS TACH, HR 103. RT AT BEDSIDE PROVIDING RESPIRATORY CARE, SUCTION. IV TO LEFT FOREARM #18 INTACT & PATENT, GTF JEVITY 1.2 @ 50 ML/HR, RESIDUAL CHECKED. PATIENT COMPLAINTS OF NAUSEA, SMALL WHITE SPUTUM SECRETIONS NOTED, SAFETY MEASURES IN PLACE & CALL LIGHT WITHIN REACH. WILL CONTINUE TO MONITOR.
[2018-01-23 08:00] VITALS: BP 123/69
[2018-01-23] MEDS: ONDANSETRON HCL/PF 4 MG/2 ML VIAL IVP PRN (08:04)
[2018-01-23] MEDS: HYDROCODONE/APAP 5/325MG 1 EACH TABLET GT PRN ×3 (08:04→18:13)
[2018-01-23] MEDS: RIFAXIMIN 550 MG TABLET GT SCH ×2 (08:12→18:06)
[2018-01-23] MEDS: PANTOPRAZOLE 40 MG/PACK PACK GT SCH (08:12)
[2018-01-23] MEDS: LACTOBACILLUS RHAMNOSUS GG 1 EACH CAP.SPRINK GT SCH ×2 (08:12→18:06)
[2018-01-23] MEDS: METOPROLOL TARTRATE 25 MG TABLET GT SCH ×2 (08:12→21:05)
[2018-01-23] MEDS: FUROSEMIDE 20 MG TABLET GT SCH (08:12)
[2018-01-23] MEDS: LINEZOLID 600 MG TABLET GT SCH ×2 (08:12→21:05)
[2018-01-23] MEDS: FOLIC ACID 1 MG TABLET GT SCH (08:12)
[2018-01-23] MEDS: ENOXAPARIN SODIUM 30 MG/0.3 ML DISP.SYRIN SQ SCH (08:13)
--- NOTE | 2018-01-23 08:25 | NUR ---
RT NOTE PT IN STABLE CONDITION. PT IS MECHANICALLY VENTILATED VIA PORTEX 7 CUFFED TRACHEOSTOMY TUBE. SETTINGS ON VENT PRESCRIBED. ALARMS SET PER PROTOCOL AND AUDIBLE. TRACH MIDLINE AND SECURE. CUFF INFLATED BY PRIME BROKER. PT AWAKE AND ALERT. NO DISTRESS NOTED. AMBU BAG AT BED SIDE. VENT PLUGGED IN TO RED OUTLET. WILL CONTINUE TO MONITOR.
[2018-01-23] MEDS: SIMETHICONE SUSP 40 MG/0.6 ML BOTTLE GT PRN (09:27)
[2018-01-23] MEDS: SIMETHICONE SUSP 40 MG/0.6 ML BOTTLE GT SCH ×4 (09:28→21:05)
[2018-01-23 12:00] VITALS: BP 135/75
--- NOTE | 2018-01-23 12:09 | NUR ---
TELE/RN NOTES URINE CULTURE OBTAINED VIA JONES CATH AND SENT TO LAB FOR RESULTS. WILL F/U ORDERED,
[2018-01-23] MEDS: LORAZEPAM 1 MG TABLET GT PRN (13:25)
[2018-01-23] MEDS ORDERED: DIATR MEGLU/DIATRIZOATE SODIUM 30 ML BOTTLE (GASTROGRAPHIN) ONE (14:36)
[2018-01-23 16:00] VITALS: BP 123/65
--- NOTE | 2018-01-23 16:30 | NUR ---
TELE/RN NOTES CLINICAL TECHNICIAN BLANQUITA NAIR AT BEDSIDE DISCUSSING PATIENT PLAN OF CARE. PATIENT HAVING FREQUENT LOOSE BOWEL MOVEMENTS, ORDERS RECEIVED FOR C.DIFF STOOL AND KUB ABDOMEN. ORDERS CARRIED OUT INDICATED.
[2018-01-23] MEDS: ASCORBIC ACID 500 MG TABLET GT SCH (18:06)
--- NOTE | 2018-01-23 19:00 | NUR ---
TELE/RN NOTES PATIENT RESTING IN BED, AWAKE AND ORIENTED X3, FAMILY AT BEDSIDE. PATIENT IN NO APPARENT DISTRESS, REMAINED STABLE THROUGHOUT SHIFT, NO SIGNIFICANT CHANGES, PATIENT KEPT CLEAN AND COMFORTABLE. SKIN AND HYGIENE CARE PROVIDED, CLEANED AND REPOSITIONED. RT PROVIDED BREATHING TREATMENT AND SUCTIONED NEEDED, VENT SETTING TOLERATED WELL. CONTINUED WITH GT FEEDINGS, NO RESIDUAL NOTED. SEEN BY GI AND WOUND SURGEON. SAFETY MEASURES RENDERED, CALL LIGHT PLACED WITHIN REACH, WILL ENDORSE CARE TO VB NET DEVELOPER FOR FLOYD.
--- NOTE | 2018-01-23 19:30 | NUR ---
TELE/RN NOTES: RECEIVED PT. IN BED ALERT AND AWAKE X 3. ABLE TO MOUTH WORD AND MAKE HER NEEDS KNOWN. ON MECHANICAL VENT. TOLERATING SETTINGS WELL. NO S/S OF RESPIRATORY DISTRESS. NO FACIAL GRIMACES OR MOANING NOTED. HOB ELEVATED. ON CONTACT AND ASPIRATION PRECAUTION. ON TELE MONITOR W/ ST @ 109 W/ ELEVATED T WAVES. ON GTF TOLERATING WELL W/ NO RESIDUAL NOTED. INCONTINENT OF B/B. IV RT. HAND G 24 PATENT AND INTACT W/ NO S/S OF INFECTION/INFILTRATION NOTED. BED LOCKED AND IN LOW POSITION. CALL LIGHT W/ REACH. ALL NEEDS MEET AND ATTENDED. WILL CONTINUE TO MONITOR.
[2018-01-23 20:00] VITALS: BP 121/61
[2018-01-23] MEDS: ATORVASTATIN 10 MG TABLET GT SCH (21:10)
--- NOTE | 2018-01-23 22:30 | NUR ---
RN NOTES PATIENT'S STRIP READING ON TELE SHOWS ST WITH T-WAVE ELEVATION, WITH HR IN THE 200s (WITH THE TELE MACHINE READING AND INCLUDING THE T-WAVE PART OF THE QRS COMPLEXES). PATIENT'S PALPABLE RADIAL PULSE IS 105, PATIENT WITH NO COMPLAINTS, NOT IN ANY DISTRESS. PATIENT'S LAST LAB DRAWN WAS ON 01/22/18 WITH K=4.4, Mg=1.8. STRIP READING SENT TO JASMYN GRULLON NP, MADE AWARE OF THE PATIENT'S CONDITION. ORDER FOR EKG AND BMP, MG RECEIVED. NOTED AND CARRIED OUT. PRIMARY RN, KATHY, MADE AWARE.
[2018-01-23 23:08] LABS: CALCIUM, SERUM 8.8 mg/dL (8.5-10.1); CREATININE 0.8 mg/dL (0.6-1.3); MAGNESIUM 1.6 mg/dL (1.8-2.4); POTASSIUM 4.1 mmol/L (3.5-5.1)
[2018-01-23] MEDS ORDERED: Magnesium 1GM/D5W 100ML PREMIX 200 ML IV ONE (23:17)
[2018-01-23] MEDS ORDERED: Magnesium 1GM/D5W 100ML PREMIX PIGGYBACK IV ONE (23:30)
--- NOTE | 2018-01-23 23:30 | NUR ---
TELE / RN NOTES: FIRST BAG OF MAGNESIUM STARTED. WILL CONTINUE TO MONITOR.
--- NOTE | 2018-01-23 23:33 | NUR ---
RN NOTES EKG SHOWING ST 107, NONSPECIFIC ST AND T-WAVE ABNORMALITY. K=4.1, Mg=1.6, Zb=672. JASMYN GRULLON NP, MADE AWARE. NEW ORDER OBTAINED FOR 2MG MAGNESIUM IV, NOTED AND CARRIED OUT. PRIMARY RN MADE AWARE.
[2018-01-24] VITALS (7 sets, daily range): BP systolic 93–132; BP diastolic 46–67
--- NOTE | 2018-01-24 | NUR ---
TELE/RN NOTES: BP LEFT THIGH 98/54, HEART RATE 106 BP RIGHT THIGH 86/40 , 102 BP LEFT ARM 88/52, 104. TEXTED PROJECT PROGRAM MANAGER JASMYN GRULLON W/ NNO AT THIS TIME. WILL CONTINUE TO MONITOR. CHARGE NURSE MADE AWARE OF BP READING.
[2018-01-24] MEDS ORDERED: Magnesium 1GM/D5W 100ML PREMIX PIGGYBACK IV ONE (00:30)
[2018-01-24] MEDS: HYDROCODONE/APAP 5/325MG 1 EACH TABLET GT PRN ×4 (02:45→20:56)
[2018-01-24] MEDS: JEVITY 1.2 CAL 1,000 ML BOTTLE GT PRN (06:23)
--- NOTE | 2018-01-24 07:15 | NUR ---
TELE/RN NOTES: NO ACUTE CHANGES NOTED DURING THIS SHIFT. REPORT GIVEN TO AM NURSE FOR FLOYD.
[2018-01-24] MEDS: LEVALBUTEROL HCL NEB 1.25 MG/0.5 ML VIAL.NEB IH SCH ×3 (07:54→23:03)
--- NOTE | 2018-01-24 08:00 | NUR ---
TELE1/RN AM SHIFT INITIAL NOTES RECEIVED AT AWAKEN SITTING IN BED, NO ACUTE RESPIRATORY DISTRESS NOTED. PT A/O X 3, ABLE TO MOUTH WORDS, DENIES ANY SYMPTOMS AT THIS TIME. ON VENTILATOR SUPPORT WITH RATES SET PRESCRIBED, SATURATING @ 100%, LUNG SOUNDS CLEAR, SUCTIONED FOR AIRWAY CLEARANCE. ON TELE WITH SINUS TACHY, HR 107. IV SITE FLUSHED, PATENT WITH NO S/S OF INFECTION, SL. WITH ON GOING GT FEEDING @ 50CC/HR, NO GASTRIC RESIDUAL NOTED, FLUSHED. PT IS COMFORTABLE AT THIS TIME. SCHEDULED AM MEDS TO BE GIVEN. CL WITHIN REACHED, SAFETY MAINTAINED AND ISOLATION OBSERVED. ON GOING MONITORING.
[2018-01-24] MEDS: PANTOPRAZOLE 40 MG/PACK PACK GT SCH (08:45)
[2018-01-24] MEDS: RIFAXIMIN 550 MG TABLET GT SCH ×2 (08:45→16:41)
[2018-01-24] MEDS: LACTOBACILLUS RHAMNOSUS GG 1 EACH CAP.SPRINK GT SCH ×2 (08:45→16:41)
[2018-01-24] MEDS: FOLIC ACID 1 MG TABLET GT SCH (08:45)
[2018-01-24] MEDS: LINEZOLID 600 MG TABLET GT SCH ×2 (08:45→20:10)
[2018-01-24] MEDS: ENOXAPARIN SODIUM 30 MG/0.3 ML DISP.SYRIN SQ SCH (08:45)
[2018-01-24] MEDS: METOPROLOL TARTRATE 25 MG TABLET GT SCH ×2 (08:46→20:29)
[2018-01-24] MEDS: SIMETHICONE SUSP 40 MG/0.6 ML BOTTLE GT SCH ×4 (08:46→20:09)
[2018-01-24] MEDS: FUROSEMIDE 20 MG TABLET GT SCH (08:46)
--- NOTE | 2018-01-24 10:45 | NUR ---
TELE1/RN G TUBE DISLODGE G-TUBE NOTED CAME OFF STOMA, THE BALLOON OF THE G-TUBE POPPED, NOTIFIED CHARGE NURSE, EXISTING G-TUBE RE-INSERTED TO KEEP STOMA OPEN. GI MD NOTIFIED FOR RE-INSERTION. MONITORING CONTINUED.
--- NOTE | 2018-01-24 11:50 | NUR ---
TELE1/ESTATE PLANNER OF CARE REPORT GIVEN TO NURSE RASHID, ENDORSED TO CONTINUE CARE. CL WITHIN REACHED, SAFETY MAINTAINED AND ISOLATION OBSERVED. MONITORING CONTINUED.
--- NOTE | 2018-01-24 12:01 | NUR ---
RN NOTES RECEIVED PT FROM CLARIBEL FOR CONTINUITY OF CARE. VENT/TRACH DEPENDENT TOLERATING VENT SETTINGS. ST ON THE TELE [facility]. PENDING GTUBE REPLACEMENT. RH 24G IV SITE INTACT. BED LOCKED AND IN LOWEST POSITION, CALL LIGHT WITHIN REACH, SIDE RAILS UPX3, WILL CONT TO [facility].
[2018-01-24] MEDS ORDERED: DIATR MEGLU/DIATRIZOATE SODIUM 30 ML BOTTLE (GASTROGRAPHIN) ONE (12:14)
--- NOTE | 2018-01-24 12:39 | NUR ---
WOUND CARE CONSULT WOUND CARE RECEIVED WOUND CONSULT FOR LABIAL WOUND. WOUND CARE WILL DEFER CONSULT AND TREATMENT PLAN TO SURGICAL TEAM WHO ARE CURRENTLY FOLLOWING PATIENT. PATIENT WITH TAMAR AT 13, ALL PRESSURE ULCER PREVENTION MEASURES ARE NOTED TO BE IN PLACE.
[2018-01-24] MEDS: NYSTATIN TOP POWDER 15 GM BOTTLE TP SCH ×2 (13:59→20:09)
[2018-01-24] MEDS: ASCORBIC ACID 500 MG TABLET GT SCH (16:41)
--- NOTE | 2018-01-24 17:00 | NUR ---
RADHIKA NOTES US OF ABDOMEN SHOWS GALLSTONES, GI RAZ JUARES NOTIFIED. Addendum: 01/24/18 at 1756 by SANDY MATA RN RADHIKA NOTES US OF ABDOMEN SHOWS GALLSTONES, GI RAZ JUARES AND FARZAD NOTIFIED. PER FARZAD PICHARDO TO CONT GTF.
--- NOTE | 2018-01-24 18:21 | NUR ---
RN NOTES PT REMAINED IN STABLE CONDITION THROUGHOUT THE SHIFT, NO SIGNIFICANT CHANGES NOTED. WILL ENDORSE TO ONCOMING SHIFT.
--- NOTE | 2018-01-24 19:10 | NUR ---
INSPECTOR PENETRANT NOTE PATIENT PRESENTS AOX3, TRACH TO MECHANICAL VENT ON SETTINGS ORDERED, ABLE TO MOUTH WORDS, INCONTINENT DIAPER IN PLACE, SKIN KEPT CLEAN AND DRY, TELE ST 109, CONTACT PRECAUTIONS OBSERVED FOR ESBL URINE, NO CARDIAC OR RESPIRATORY DISTRESS NOTED, R HAND #24 SL, SAFETY MAINTAINED AT ALL TIMES, CALL LIGHT WITHIN REACH, BED IN LOW LOCKED POSITION, DUE TO D/C TOMORROW, WILL CONTINUE TO MONITOR FOR ANY CHANGES IN CONDITION.
--- NOTE | 2018-01-24 19:20 | NUR ---
RN NOTES PER NIGEL JENKINS THERAPEUTIC MENTOR, PT OK TO DC BACK TO [facility].
[2018-01-24] MEDS: ATORVASTATIN 10 MG TABLET GT SCH (21:29)
[2018-01-24] MEDS: ZOLPIDEM TARTRATE 5 MG TABLET GT PRN (23:35)
[2018-01-25] VITALS: BP 103/46
[2018-01-25] MEDS: HYDROCODONE/APAP 5/325MG 1 EACH TABLET GT PRN ×5 (01:30→21:45)
[2018-01-25 04:00] VITALS: BP 115/61
[2018-01-25 06:36] LABS: BASOPHILS % (AUTO) 0.5 % (0.0-2.0); EOSINOPHILS % (AUTO) 1.3 % (0.0-6.0); HEMATOCRIT 30 % (33-45); HEMOGLOBIN 9.4 g/dL (11.5-14.8); LYMPHOCYTES # (AUTO) 1.4 /CMM (0.8-4.8); LYMPHOCYTES % (AUTO) 17.6 % (20.0-44.0); MEAN CORPUSCULAR HGB CONC 31 g/dl (31.0-36.0); MEAN CORPUSCULAR VOLUME 83 fL (82-100); MONOCYTES # (AUTO) 0.5 /CMM (0.1-1.30); MONOCYTES % (AUTO) 5.8 % (2.0-12.0); NEUTROPHILS % (AUTO) 74.8 % (43.0-81.0); PLATELET COUNT (AUTO) 174 /CMM (150-450); RED BLOOD CELL COUNT(AUTO) 3.61 MIL/uL (4.0-5.2); WHITE BLOOD COUNT (AUTO) 8.1 K/uL (4.3-11.0)
[2018-01-25 06:59] LABS: CALCIUM, SERUM 8.6 mg/dL (8.5-10.1); CREATININE 0.7 mg/dL (0.6-1.3); MAGNESIUM 1.4 mg/dL (1.8-2.4); POTASSIUM 4.5 mmol/L (3.5-5.1)
--- NOTE | 2018-01-25 07:30 | NUR ---
RADIOLOGIC TECHNOLOGIST MAMMOGRAM INITIAL NOTES RECEIVED PATIENT IN BED, AOX4, ON VENTILATOR SETTINGS ORDERED TOLERATING WELL, SUCTIONED, WHITE THICK SECRETIONS, ON TELE MONITORING ST, IN DIAPER, G-TUBE FEEDINDS 50ML/HR, NO RESIDUAL NOTED, IV R HAND 24G SL, CLEAN AND PATENT, MAGNESIUM LEVEL 1.4 THIS AM, LATCHER FARZAD KELLEY MADE AWARE, BED IN LOW AND LOCKED POSITION, CALL LIGHT WITHIN REACH, WILL CONTINUE TO MONITOR.
[2018-01-25] MEDS: LEVALBUTEROL HCL NEB 1.25 MG/0.5 ML VIAL.NEB IH SCH ×3 (07:48→21:34)
[2018-01-25 08:00] VITALS: BP 101/62
[2018-01-25] MEDS ORDERED: Magnesium 1GM/D5W 100ML PREMIX PIGGYBACK IV ONE (08:00)
[2018-01-25] MEDS: LINEZOLID 600 MG TABLET GT SCH ×2 (08:17→21:39)
[2018-01-25] MEDS: FOLIC ACID 1 MG TABLET GT SCH (08:17)
[2018-01-25] MEDS: RIFAXIMIN 550 MG TABLET GT SCH ×2 (08:17→17:20)
[2018-01-25] MEDS: LACTOBACILLUS RHAMNOSUS GG 1 EACH CAP.SPRINK GT SCH ×2 (08:17→17:19)
[2018-01-25] MEDS: Magnesium 1GM/D5W 100ML PREMIX 100 ML IV SCH ×4 (08:17→11:31)
[2018-01-25] MEDS: METOPROLOL TARTRATE 25 MG TABLET GT SCH ×2 (08:18→21:00)
[2018-01-25] MEDS: FUROSEMIDE 20 MG TABLET GT SCH (08:18)
[2018-01-25] MEDS: PANTOPRAZOLE 40 MG/PACK PACK GT SCH (08:18)
[2018-01-25] MEDS: NYSTATIN TOP POWDER 15 GM BOTTLE TP SCH ×2 (08:19→17:21)
[2018-01-25] MEDS: SIMETHICONE SUSP 40 MG/0.6 ML BOTTLE GT PRN (08:19)
[2018-01-25] MEDS: SIMETHICONE SUSP 40 MG/0.6 ML BOTTLE GT SCH ×4 (08:19→21:45)
[2018-01-25] MEDS: ENOXAPARIN SODIUM 30 MG/0.3 ML DISP.SYRIN SQ SCH (08:21)
[2018-01-25 12:00] VITALS: BP 108/55
[2018-01-25] MEDS ORDERED: IV NS 0.9% 500 ML IV ONE (12:30)
[2018-01-25 16:00] VITALS: BP 101/54
[2018-01-25] MEDS: ASCORBIC ACID 500 MG TABLET GT SCH (17:20)
--- NOTE | 2018-01-25 17:27 | NUR ---
Awake and alert pt received on mechanical vent. Pt trach is secure. Pt tolerated current vent settings well. No changes made. Vent is plugged into a red outlet, alarms are set and audible, and BVM is at bedside. Addendum: 01/25/18 at 1728 by ANIL SOTELO RT Amended: Links added.
--- NOTE | 2018-01-25 18:22 | NUR ---
VICE PRESIDENT FOR PHILANTHROPY END NOTES PATIENT RESTING IN BED, ALL NEEDS MET, PATIENT CLEANED AND REPOSITIONED, AT BEDSIDE, PAIN MEDICATIONS GIVEN, SUCTIONED THICK SECRETIONS, WILL ENDORSE TO TRANSCRIPTION FOR CONTINUITY OF CARE.
--- NOTE | 2018-01-25 19:30 | NUR ---
TELE/RN OPENING NOTES PT RECEIVED AWAKE, HOB 45 DEGREES. FAMILY AT BEDSIDE. VENT SETTINGS NOTED. ABLE TO MOUTH WORDS AND MAKE NEEDS KNOWN. IV TO RIGHT HAND PATENT AND INTACT RUNNING IVF ORDERED, ONLY TO COMPLETE 1L. GTF RUNNING ORDERED. 15ML RESIDUALS NOTED. PT ANXIOUS, OFFERED PRN ATIVAN, PT ACCEPTED. WILL ADMINISTER. ON TELE MONITOR SHOWING SINUS TACH WITH HR 107. BED IN LOW/LOCKED POSITION WITH CALL LIGHT IN REACH. SIDE RAILS UPX2 WILL CONTINUE TO MONITOR
[2018-01-25 20:00] VITALS: BP 112/62
[2018-01-25] MEDS: JEVITY 1.2 CAL 1,000 ML BOTTLE GT PRN (20:02)
[2018-01-25] MEDS: LORAZEPAM 1 MG TABLET GT PRN (20:02)
[2018-01-25] MEDS: ATORVASTATIN 10 MG TABLET GT SCH (21:39)
--- NOTE | 2018-01-25 21:48 | NUR ---
PT RECEIVED TRACH ON VENT PTX 7. PT IS AWAKE AND FOLLOWS COMMANDS. NO RESP DISTRESS. PT TOLERATING VENT SETTINGS. SX'D FOR MOD AMT OF THICK HUGHES SECRETIONS. VENT ALARMS SET AND AUDIBLE. AMBU BAG AT BEDSIDE. VENT PLUGGED INTO RED OUTLET. WILL CONTINUE TO MONITOR. Addendum: 01/25/18 at 2150 by TAVON JORDAN RT Amended: Links added.
[2018-01-25] MEDS: ONDANSETRON HCL/PF 4 MG/2 ML VIAL IVP PRN (23:34)
--- NOTE | 2018-01-25 23:38 | NUR ---
TELE/RN NOTES PT C/O NAUSEA. ADMINISTERED PRN ZOFRAN ORDERED, WILL MONITOR FOR EFFECTIVENESS.
[2018-01-26] VITALS: BP 115/55
[2018-01-26] MEDS: HYDROCODONE/APAP 5/325MG 1 EACH TABLET GT PRN ×4 (02:08→19:48)
[2018-01-26 04:00] VITALS: BP 111/63
--- NOTE | 2018-01-26 06:28 | NUR ---
TELE/RN CLOSING NOTES PT AWAKE, RESTING IN BED. FOWLERS POSITION. VENT DEPENDENT. SUCTIONED PRN. BREATHING EVEN, LABORED. DENIES SOB AT THIS TIME. PAIN MEDICATION PROVIDED ORDERED. ON TELE MONITOR SHOWING ST 106. ABLE TO MAKE NEEDS KNOWN. GT FEEDING RUNNING AT 50ML/HR. APPROX 15ML RESIDUALS NOTED. IV TO LFA AND RIGHT WRIST PATENT AND INTACT. KEPT CLEAN AND DRY. WOUND CARE PROVIDED, TURNED/REPOSITIONED Q2H. HEELS OFFLOADED. KEPT PT COMFORTABLE DURING SHIFT. BED REMAINS IN LOW/LOCKED POSITION WITH CALL LIGHT IN REACH. SIDE RAILS UPX2. LAB UNABLE TO DRAW LABS THIS MORNING. WILL COME BACK TO REDRAW. WILL ENDORSE TO DAY SHIFT RN FLOYD.
[2018-01-26] MEDS: LEVALBUTEROL HCL NEB 1.25 MG/0.5 ML VIAL.NEB IH SCH ×3 (07:24→23:50)
--- NOTE | 2018-01-26 07:30 | NUR ---
TELE/RN OPENING NOTES PT RECEIVED AWAKE, HOB 45 DEGREES. FAMILY AT BEDSIDE. VENT SETTINGS NOTED. ABLE TO MOUTH WORDS AND MAKE NEEDS KNOWN. IV TO RIGHT HAND PATENT AND INTACT RUNNING IVF ORDERED, ONLY TO COMPLETE 1L. GTF RUNNING ORDERED. 15ML RESIDUALS NOTED. PT ANXIOUS, OFFERED PRN ATIVAN, PT ACCEPTED. WILL ADMINISTER. ON TELE MONITOR SHOWING SINUS TACH WITH HR 99. BED IN LOW/LOCKED POSITION WITH CALL LIGHT IN REACH. SIDE RAILS UPX2 WILL CONTINUE TO MONITOR
[2018-01-26 08:00] VITALS: BP_SYST 115; BP_DIAS 58; BP_DIAS 63
[2018-01-26 08:20] LABS: BASOPHILS % (AUTO) 0.4 % (0.0-2.0); HEMATOCRIT 28 % (33-45); HEMOGLOBIN 8.8 g/dL (11.5-14.8); MEAN CORPUSCULAR HGB CONC 31 g/dl (31.0-36.0); MEAN CORPUSCULAR VOLUME 82 fL (82-100); MONOCYTES # (AUTO) 0.3 /CMM (0.1-1.30); NEUTROPHILS # (AUTO) 5.5 /CMM (1.8-8.9); NEUTROPHILS % (AUTO) 79.6 % (43.0-81.0); PLATELET COUNT (AUTO) 130 /CMM (150-450); RDW COEFFICIENT OF VARIATION 17.6 (11.5-15.0); RED BLOOD CELL COUNT(AUTO) 3.41 MIL/uL (4.0-5.2); WHITE BLOOD COUNT (AUTO) 6.9 K/uL (4.3-11.0)
[2018-01-26 08:36] LABS: CALCIUM, SERUM 8.6 mg/dL (8.5-10.1); CREATININE 0.6 mg/dL (0.6-1.3); PHOSPHORUS 3.1 mg/dL (2.5-4.9); POTASSIUM 4.4 mmol/L (3.5-5.1)
[2018-01-26] MEDS: SIMETHICONE SUSP 40 MG/0.6 ML BOTTLE GT SCH ×4 (09:00→20:26)
[2018-01-26] MEDS: FOLIC ACID 1 MG TABLET GT SCH (09:15)
[2018-01-26] MEDS: METOPROLOL TARTRATE 25 MG TABLET GT SCH ×2 (09:15→20:14)
[2018-01-26] MEDS: PANTOPRAZOLE 40 MG/PACK PACK GT SCH (09:15)
[2018-01-26] MEDS: RIFAXIMIN 550 MG TABLET GT SCH ×2 (09:15→17:55)
[2018-01-26] MEDS: LACTOBACILLUS RHAMNOSUS GG 1 EACH CAP.SPRINK GT SCH ×2 (09:15→17:55)
[2018-01-26] MEDS: LINEZOLID 600 MG TABLET GT SCH ×2 (09:15→20:08)
[2018-01-26] MEDS: FUROSEMIDE 20 MG TABLET GT SCH (09:15)
[2018-01-26] MEDS: ENOXAPARIN SODIUM 30 MG/0.3 ML DISP.SYRIN SQ SCH (09:17)
[2018-01-26] MEDS: NYSTATIN TOP POWDER 15 GM BOTTLE TP SCH ×2 (09:19→17:00)
[2018-01-26 12:00] VITALS: BP_SYST 100; BP_SYST 125; BP_DIAS 56; BP_DIAS 63
[2018-01-26] MEDS: LORAZEPAM 1 MG TABLET GT PRN (15:26)
[2018-01-26 16:00] VITALS: BP_SYST 103; BP_SYST 115; BP_DIAS 63; BP_DIAS 65
[2018-01-26] MEDS: ASCORBIC ACID 500 MG TABLET GT SCH (17:55)
[2018-01-26] MEDS: ACETAMINOPHEN 325 MG TABLET PO PRN (18:10)
[2018-01-26 20:00] VITALS: BP 118/63
--- NOTE | 2018-01-26 20:47 | NUR ---
PT RECEIVED TRACH ON VENT PTX 7. PT IS AWAKE AND FOLLOWS COMMANDS. NO RESP DISTRESS. PT TOLERATING VENT SETTINGS. SX'D FOR MOD AMT OF THICK HUGHES SECRETIONS. VENT ALARMS SET AND AUDIBLE. AMBU BAG AT BEDSIDE. VENT PLUGGED INTO RED OUTLET. WILL CONTINUE TO MONITOR. Addendum: 01/26/18 at 2046 by TAVON JORDAN RT Amended: Links added.
[2018-01-26] MEDS: ATORVASTATIN 10 MG TABLET GT SCH (21:00)
[2018-01-26] MEDS: ZOLPIDEM TARTRATE 5 MG TABLET GT PRN (23:27)
[2018-01-27] VITALS: BP 119/90
[2018-01-27] MEDS: HYDROCODONE/APAP 5/325MG 1 EACH TABLET GT PRN ×4 (01:47→20:55)
[2018-01-27 04:00] VITALS: BP 110/61
[2018-01-27] MEDS: JEVITY 1.2 CAL 1,000 ML BOTTLE GT PRN (05:39)
--- NOTE | 2018-01-27 07:00 | NUR ---
TELE.RN OPENING NOTES. PT A&0X3, NON VERBAL BUT MOUTHING WORDS AND ABLE TO MAKE NEEDS KNOWN. PT WITH T&V. PT WITH TELLE [id number]. SETTING REVIEWED AND CORRECT, PLUGGED TO RED POINT AND ALARMS ON. PT AUSCULTATE WITH CRACKLES AND RIGHT SIDE RHONCHI, SAO2 WNL. PT WITH RT NOW. PT DENIES PAIN. PT WITH G TUBE INTACT AND OPERATIONAL. PT WITH IVC AT L FA G#22 INTACT AND SALINE FLUSH PATENT. PT BRIEFED ON TODAY'S POC AND IS WITHOUT CONCERN OR COMPLAINT.
[2018-01-27] MEDS: LEVALBUTEROL HCL NEB 1.25 MG/0.5 ML VIAL.NEB IH SCH ×3 (07:05→23:20)
--- NOTE | 2018-01-27 07:05 | NUR ---
RT PT RECEIVED TRACHED WITH A PORTEX 7 ON THE VENT WITH NOTED SETTINGS. PT IS AWAKE AND ALERT. VENT ALARMS ARE SET AND AUDIBLE WITH BVM BY BEDSIDE. SEGMENTAL PAVING SUPERVISOR CUFF PRESSURE NOTED. VENT IS PLUGGED INTO RED OUTLET. NO RESPIRATORY DISTRESS NOTED AT THIS TIME, WILL CONTINUE TO MONITOR. Addendum: 01/27/18 at 1756 by ANG BENOIT RT Amended: Links added.
[2018-01-27 08:00] VITALS: BP 112/64
[2018-01-27] MEDS: LACTOBACILLUS RHAMNOSUS GG 1 EACH CAP.SPRINK GT SCH ×2 (08:33→16:52)
[2018-01-27] MEDS: PANTOPRAZOLE 40 MG/PACK PACK GT SCH (08:33)
[2018-01-27] MEDS: RIFAXIMIN 550 MG TABLET GT SCH ×2 (08:33→16:52)
[2018-01-27] MEDS: ENOXAPARIN SODIUM 30 MG/0.3 ML DISP.SYRIN SQ SCH (08:33)
[2018-01-27] MEDS: FUROSEMIDE 20 MG TABLET GT SCH (08:33)
[2018-01-27] MEDS: LINEZOLID 600 MG TABLET GT SCH ×2 (08:33→20:41)
[2018-01-27] MEDS: FOLIC ACID 1 MG TABLET GT SCH (08:34)
[2018-01-27] MEDS: METOPROLOL TARTRATE 25 MG TABLET GT SCH ×2 (08:37→20:39)
[2018-01-27] MEDS: SIMETHICONE SUSP 40 MG/0.6 ML BOTTLE GT PRN (08:41)
[2018-01-27] MEDS: NYSTATIN TOP POWDER 15 GM BOTTLE TP SCH ×2 (08:42→16:53)
[2018-01-27] MEDS: SIMETHICONE SUSP 40 MG/0.6 ML BOTTLE GT SCH ×4 (09:33→20:41)
[2018-01-27] MEDS: ONDANSETRON HCL/PF 4 MG/2 ML VIAL IVP PRN ×3 (09:53→18:41)
[2018-01-27] MEDS ORDERED: JEVITY 1.2 CAL 1,000 ML BOTTLE GT PRN (10:30)
[2018-01-27] MEDS: ACETAMINOPHEN 325 MG TABLET PO PRN (11:36)
[2018-01-27 12:00] VITALS: BP 111/66
--- NOTE | 2018-01-27 12:00 | NUR ---
RN NOTES. PT WITH MULTIPLE EPISODES OF PAIN AT G-TUBE SITE. NAD AT SITE AND WITH MINIMAL RESIDUAL. VOLUNTEER SERVICES ASSISTANT AWARE.
[2018-01-27] MEDS ORDERED: HYDROCODONE/APAP 5/325MG 1 EACH TABLET PO STA (13:14)
[2018-01-27 16:00] VITALS: BP 112/64
[2018-01-27] MEDS: ASCORBIC ACID 500 MG TABLET GT SCH (16:53)
--- NOTE | 2018-01-27 18:12 | NUR ---
RN CLOSING NOTES. PT A&0X3, NON VERBAL BUT ABLE TO COMMUNICATE, FAMILY AT BEDSIDE. PT WITH T&V SETTINGS CORRECT AND USING RED PLUG. PT WITH MODERATE PAIN AT G-TUBE SITE. PT WITH G TUBE INTACT AND OPERATIONAL, MINIMAL RESIDUALS. PT WITH NEW IVC AT L FA G#20 INTACT AND SALINE FLUSH PATENT. PT BED IN LOWEST LOCKED POSITION WITH HANDRAILSX4 AND CALL CAMPOS WITHIN REACH. WOUND CARE COMPLETED ORDERED. PT REPOSITIONED Q2HR OR MORE FREQUENT. ALL DAY NURSE DUTIES ATTENDED TO AND PT AND ARE WITHOUT CONCERN OR COMPLAINT AT THIS TIME. WILL ENDORSE TO NIGHT NURSE AT BEDSIDE FOR FLOYD.
[2018-01-27] MEDS: LORAZEPAM 1 MG TABLET GT PRN (18:41)
--- NOTE | 2018-01-27 18:59 | NUR ---
PT RECEIVED TRACHED WITH A PORTEX 7 ON THE VENT WITH NOTED SETTINGS. PT IS AWAKE AND ALERT. VENT ALARMS ARE SET AND AUDIBLE ,EVENT SPECIALIST FOOD DEMONSTRATOR CUFF PRESSURE NOTED. VENT IS PLUGGED INTO RED OUTLET. SUCTIONED SMALL AMOUNT OF PALE YELLOW THICK SECRETIONS. NO RESPIRATORY DISTRESS NOTED AT THIS TIME, WILL CONTINUE TO MONITOR.
[2018-01-27 20:00] VITALS: BP 120/68
[2018-01-27] MEDS: ATORVASTATIN 10 MG TABLET GT SCH (20:44)
[2018-01-28] VITALS: BP 132/51
[2018-01-28] MEDS: HYDROCODONE/APAP 5/325MG 1 EACH TABLET GT PRN ×4 (02:34→16:42)
[2018-01-28 04:00] VITALS: BP 106/69
[2018-01-28] MEDS: ACETAMINOPHEN 325 MG TABLET PO PRN (04:40)
[2018-01-28] MEDS: LEVALBUTEROL HCL NEB 1.25 MG/0.5 ML VIAL.NEB IH SCH ×2 (07:28→16:04)
--- NOTE | 2018-01-28 07:35 | NUR ---
RN NOTE RECEIVED PATIENT IN BED, AWAKE ALERT AND ORIENTED WATCHING T.V, SHE IS ABLE TO COMMUNICATE AND MOUTH HER WORDS TO VERBALIZE NEEDS, ON VENTILATOR SUPPORT WITH APPROPRIATE SETTINGS AND TOLERATING WELL. [facility] SINUS TACHY HR OF 110. GT SITE INTACT AND PATENT WITH ONGOING FEEDINGS RUNNING WELL WITH NO RESIDUALS NOTED. LEFT FA IV SITE INTACT AND PATENT. BED LOCKED AND LOW POSITION, ALL ISOLATION PRECAUTIONS DONE, PLACED CALL LIGHT WITH IN REACH, WILL CONTINUE TO MONITOR.
[2018-01-28 08:00] VITALS: BP 118/64
[2018-01-28] MEDS: RIFAXIMIN 550 MG TABLET GT SCH ×2 (08:27→16:42)
[2018-01-28] MEDS: PANTOPRAZOLE 40 MG/PACK PACK GT SCH (08:27)
[2018-01-28] MEDS: METOPROLOL TARTRATE 25 MG TABLET GT SCH (08:28)
[2018-01-28] MEDS: LACTOBACILLUS RHAMNOSUS GG 1 EACH CAP.SPRINK GT SCH ×2 (08:28→16:42)
[2018-01-28] MEDS: FOLIC ACID 1 MG TABLET GT SCH (08:28)
[2018-01-28] MEDS: FUROSEMIDE 20 MG TABLET GT SCH (08:28)
[2018-01-28] MEDS: LINEZOLID 600 MG TABLET GT SCH (08:28)
[2018-01-28] MEDS: ENOXAPARIN SODIUM 30 MG/0.3 ML DISP.SYRIN SQ SCH (08:30)
[2018-01-28] MEDS: NYSTATIN TOP POWDER 15 GM BOTTLE TP SCH ×2 (08:30→16:44)
[2018-01-28] MEDS: SIMETHICONE SUSP 40 MG/0.6 ML BOTTLE GT SCH ×3 (08:31→16:43)
[2018-01-28 12:00] VITALS: BP 111/69
[2018-01-28 16:00] VITALS: BP 132/63
--- NOTE | 2018-01-28 16:25 | NUR ---
RN NOTE CALLED [facility] [phone] SPOKE TO ZURI RN AUTOMATIC RIVETING MACHINE OPERATOR AND GAVE REPORT ABOUT PATIENT. PATIENT AWARE OF TRANSFER, CALLED PATIENTS TO NOTIFY HI M ABOUT THE TRANSFER. ESTIMATE ORNAMENTAL PLASTER STICKER TIME 1900. WILL ENDORSE TO NEXT SHIFT IF ORNAMENTAL PLASTER STICKER TIME WILL BE LATER
[2018-01-28] MEDS: ASCORBIC ACID 500 MG TABLET GT SCH (16:42)
--- NOTE | 2018-01-28 19:32 | NUR ---
DATA BASE DESIGN ANALYST NOTES RECEIVED PT ON BED. ALERT ORIENTED X3. [facility] SATURATING WELL. ON TELE MONITOR ST. IV ACCESS ON LFA #20SL. GTIBE FEEDING AT 50CC/HR NO RESIDUAL. HEAD OF BED ELEVATED. SIDE RAILS UP. CALL LIGHT IS PLACED WITHIN REACH. WILL CONTINUE TO MONITOR PT CLOSELY.
[2018-01-28 20:00] VITALS: BP 107/55
--- NOTE | 2018-01-28 20:25 | NUR ---
PROCESS SAFETY MANAGER NOTES PT DISCHARGED STABLE. EXIT CARE DONE.
== END 2018-01-28 21:04 | DRG 870 ==
LOC: ER 06:38 → TELE1 10:12
PROVIDERS: ADMIT Nurse Practitioner Acute Care; ATTEND Nurse Practitioner Acute Care
PROC: 5A1955Z Respiratory Ventilation, Greater than 96 Consecutive Hours (ICD-10-PCS; principal; 2018-01-11)
PROC: 0DBM8ZX Excision of Descending Colon, Via Natural or Artificial Opening Endoscopic, Diagnostic (ICD-10-PCS; 2018-01-14)
PROC: 0DBL8ZX Excision of Transverse Colon, Via Natural or Artificial Opening Endoscopic, Diagnostic (ICD-10-PCS; 2018-01-14)
PROC: 0D20XUZ Change Feeding Device in Upper Intestinal Tract, External Approach (ICD-10-PCS; 2018-01-25)
DX: A41.9 Sepsis, unspecified organism (principal); J96.01 Acute respiratory failure with hypoxia; Z99.11 Dependence on respirator [ventilator] status; I50.23 Acute on chronic systolic (congestive) heart failure; E44.0 Moderate protein-calorie malnutrition; J15.6 Pneumonia due to other Gram-negative bacteria; J15.9 Unspecified bacterial pneumonia; Z93.0 Tracheostomy status; J90 Pleural effusion, not elsewhere classified; D68.59 Other primary thrombophilia; N39.0 Urinary tract infection, site not specified; J44.0 Chronic obstructive pulmonary disease with (acute) lower respiratory infection; Z68.1 Body mass index [BMI] 19.9 or less, adult; K94.23 Gastrostomy malfunction; I48.91 Unspecified atrial fibrillation; I11.0 Hypertensive heart disease with heart failure; E78.5 Hyperlipidemia, unspecified; I27.20 Pulmonary hypertension, unspecified; D64.9 Anemia, unspecified; E88.09 Other disorders of plasma-protein metabolism, not elsewhere classified; R74.0 Nonspecific elevation of levels of transaminase and lactic acid dehydrogenase [LDH]; K76.0 Fatty (change of) liver, not elsewhere classified; B95.2 Enterococcus as the cause of diseases classified elsewhere; R10.9 Unspecified abdominal pain; Z16.21 Resistance to vancomycin; L98.8 Other specified disorders of the skin and subcutaneous tissue; R21 Rash and other nonspecific skin eruption; S31.40XA Unspecified open wound of vagina and vulva, initial encounter; X58.XXXA Exposure to other specified factors, initial encounter; Y93.9 Activity, unspecified; Y92.129 Unspecified place in nursing home as the place of occurrence of the external cause; Y84.9 Medical procedure, unspecified as the cause of abnormal reaction of the patient, or of later complication, without mention of misadventure at the time of the procedure; Y82.8 Other medical devices associated with adverse incidents; K21.9 Gastro-esophageal reflux disease without esophagitis; K64.8 Other hemorrhoids; R13.10 Dysphagia, unspecified; Z86.711 Personal history of pulmonary embolism; Z90.2 Acquired absence of lung [part of]
CPT/HCPCS: 31720; 36415; 36600; 70450-TC; 71045-TC; 74018; 74230-TC; 76700-TC; 76882; 80048-TC; 80053-TC; 80061-TC; 80074; 80076-TC; 81000-TC; 82746; 82803-TC; 83605-TC; 83735-TC; 84100-TC; 84484-TC; 85025-TC; 85730-TC; 87040-TC; 87081-TC; 87086-TC; 87186-TC; 88305-TC; 92526; 92611-TC; 94002-TC; 94003-TC; 94760-TC; 94761-TC; 94762-TC; 99082-TC; A4216; A4606; A6402; A6403; J0696; J1650; J1940; J2020; J2405; J2543; J3370; J3475; J3490; J7030; J7040; J7042; J7060; Q9963; Z7610